=== PATIENT | female | born 1990 | race Caucasian/White ===

== ENCOUNTER 2020-08-18 08:45 | Outpatient (REF) | payer OTHER, SELFPAY ==
--- NOTE | 2020-08-18 08:58 | ECG_ITS ---
Test Reason : UNSPEC CHEST PAIN Blood Pressure : / mmHG Vent. Rate : 068 BPM Atrial Rate : 068 BPM P-R Int : 136 ms QRS Dur : 082 ms QT Int : 392 ms P-R-T Axes : 052 045 003 degrees QTc Int : 416 ms Normal sinus rhythm Nonspecific ST abnormality Abnormal ECG When compared with ECG of 30-APR-2020 14:53, ST-T changes slightly more prominent Referred By: Naye Sexton Electronically Signed By:GABRIEL MCDOWELL
--- NOTE | 2020-08-18 09:17 | XR_ITS ---
EXAMINATION: XR SHOULDER, LEFT CLINICAL INFORMATION: Pain left shoulder COMPARISON: None TECHNIQUE: AP external rotation, Grashey, scapular Y, and axillary views of the left shoulder. FINDINGS: The bones and soft tissues are normal. No fracture. Glenohumeral and acromioclavicular alignment is anatomic with normal joint space. No abnormal soft tissue calcifications. XR/XR shoulder LT min 2V IMPRESSION: Unremarkable left shoulder exam.
[2020-08-18 10:12] LABS: Troponin-I High Sensitivity < 3.5 ng/L (<3.5-17.0)
[2020-08-18 10:22] LABS: Alanine Aminotransferase 18 U/L (0-31); Albumin Level 4.3 g/dL (3.5-5.0); Alkaline Phosphatase 82 U/L (39-117); Anion Gap 14 (12-20); Aspartate Amino Transferase 12 U/L (5-31); Bilirubin Total 0.5 mg/dL (0.0-1.0); Blood Urea Nitrogen 11 mg/dL (9-16); Calcium 8.8 mg/dL (8.4-10.2); Carbon Dioxide 20 mmol/L (22-29); Chloride 108 mmol/L (96-108); Estimated Glomerular Filt Rate > 60; Glucose Fasting 113 mg/dL (60-99); Potassium 3.8 mmol/l (3.3-5.1); Sodium 138 mmol/L (135-145); Total Protein 7.2 g/dL (6.5-8.0)
== END 2020-08-18 08:46 | disposition home or self-care (01) ==
LOC: HO.LAB 08:45
PROVIDERS: PCP Internal Medicine; Visit Provider Nurse Practitioner Family
DX: R07.9 Chest pain, unspecified (principal); M25.512 Pain in left shoulder; E27.8 Other specified disorders of adrenal gland; E55.9 Vitamin D deficiency, unspecified; L65.9 Nonscarring hair loss, unspecified; K21.9 Gastro-esophageal reflux disease without esophagitis; N20.0 Calculus of kidney; E04.9 Nontoxic goiter, unspecified
CPT/HCPCS: 73030; 80053; 84484; 93005; 99202

== ENCOUNTER 2020-08-23 08:10 | Emergency (ER) | payer OTHER, SELFPAY ==
[2020-08-23 08:16] VITALS: BP 134/69; PULSE 82; RESP 18; TEMP 36.6; O2SAT 99; BMI 36.8
--- NOTE | 2020-08-23 08:19 | XR_ITS ---
EXAMINATION: XR CHEST CLINICAL INFORMATION: Palpitations. COMPARISON: None TECHNIQUE: Frontal view of the chest was obtained. FINDINGS: No significant abnormality is noted involving the heart, lungs, mediastinum, bony thorax or soft tissues. XR/XR chest 1V IMPRESSION: Unremarkable chest examination.
--- NOTE | 2020-08-23 08:19 | ECG_ITS ---
Test Reason : CP Blood Pressure : / mmHG Vent. Rate : 071 BPM Atrial Rate : 071 BPM P-R Int : 130 ms QRS Dur : 088 ms QT Int : 412 ms P-R-T Axes : 050 048 032 degrees QTc Int : 447 ms Normal sinus rhythm with sinus arrhythmia Normal ECG When compared with ECG of 18-AUG-2020 09:03, No significant change was found Referred By: Morena Miller Electronically Signed By:GABRIEL MCDOWELL
--- NOTE | 2020-08-23 08:34 | ED_ITS ---
HPI - Chest Pain General Chief Complaint: Chest Pain Stated Complaint: HEART PALPITATOINS Time Seen by Provider: 08/23/20 08:18 Source: patient Mode of arrival: ambulatory Limitations: no limitations History of Present Illness HPI narrative: 30 years old female presented with 4 days history of palpitation that can happen with no predisposing factor, patient feels like rapid heartbeat, last for few minutes, then self resolved, patient was seen and evaluated by PCP 3 days ago for her symptoms, patient bending refer to cardiology referral via her PCP. Patient also been having chest tightness for the past 4 weeks, pain feeling like intermittent pressure in the whole entire chest, with no radiation, pain is not exertional and no factor to predispose her pain, nothing makes the pain worse, nothing makes the pain better. no recent travel, no recent prolonged immobilization, no lower extremity swelling or pain, no history of DVT, or PE, no family history of young or known heart attack or PE run in the family. Related Data Home Medications Medication Instructions Recorded Confirmed albuterol sulfate 90 mcg/actuation 2 puff PO Q4H PRN 08/15/20 08/18/20 aerosol inhaler benzoyl peroxide 10 % topical gel TOPICAL BID 08/18/20 08/18/20 clindamycin phosphate 1 % topical 1 appl TOPICAL BID 08/18/20 08/18/20 gel doxycycline hyclate 100 mg capsule 100 mg PO BID 08/18/20 08/18/20 Previous Rx's Medication Instructions Recorded ibuprofen 800 mg tablet 800 mg PO Q8H PRN 15 Days #30 tab 08/15/20 prednisone 10 mg tablet 10 mg PO BID 9 Days #18 tab 08/15/20 Allergies Allergy/AdvReac Type Severity Reaction Status Date / Time No Known Allergies Allergy Unknown Unverified 05/29/20 15:46 [No Known Allergies*] Review of Systems Review of Systems: All other systems are reviewed and are negative Constitutional: Reports as per HPI and Reports no additional constitutional complaints Eyes: Reports as per HPI and Reports no additional eye complaints Reports system reviewed and no additional complaints, except as documented Cardiovascular: Reports as per HPI and Reports no additional cardiovascular complaints Respiratory: Reports as per HPI and Reports no additional respiratory complaints Gastrointestinal: Reports as per HPI and Reports no additional gastrointestinal complaints Genitourinary: Reports no additional female genitourinary complaints Musculoskeletal: Reports no additional musculoskeletal complaints Skin/Breast: Reports system reviewed and no additional complaints, except as docu Psychiatric: Reports no additional psychiatric complaints Endocrine: Reports no additional endocrine complaints Hematologic/Lymphatic: Reports no additional hematologic/lymphatic complaints Allergic/Immunologic: Reports no additional allergic/immunologic complaints Reports system reviewed and no additional complaints, except as documented and Reports Abnormal speech present REPLACED BY [facility] Past Medical History Medical History Chest pain Elevated dehydroepiandrosterone sulfate level GERD (gastroesophageal reflux disease) Goiter History of calculus of gallbladder Nephrolithiasis Shoulder pain Vitamin D deficiency Surgical History Hx of cholecystectomy Family History Family History Mother Epilepsia Diabetes Father High blood pressure Social History Social History Alcohol intake: never Smoked in Last 30 Days: No Use of substances other than those prescribed or required for medical reasons: No Advance Directives: No Advance Directives Information Provided: No Physical Exam Vital Signs: Vital Signs: Last Vital Signs Temp 97.9 F 08/23/20 10:37 Pulse 52 08/23/20 10:37 Resp 12 08/23/20 10:37 BP 126/69 08/23/20 10:37 Pulse Ox 99 08/23/20 10:37 Body Mass Index 36.8 Vital signs have been reviewed as normal and appeared to be correct. Blood pressure in the high range.. Heart rate normal. Respiration rate normal. Te mperature normal. Oxygen saturation normal. Appearance: Alert. Oriented X3. No acute distress. Head: Normal external exam. Normocephalic. Atraumatic. No De La Cruz signs noted. No raccoon eyes noted Eyes: PERRLA. EOMI. Conjunctiva and sclera normal. Eyelids normal. ENT: EAC normal. TM's Normal. Pharynx normal. Uvula midline. Moist mucous membranes. No trismus noted. No drooling noted. No muffled voice noted. Neck: Normal inspection. Neck supple. FROM. No adenopathy. Thyroid Normal. No meningeal signs. No neck mass noted. CVS: Normal heart rate and rhythm. Heart sound normal. No murmurs noted. Pulses normal throughout. Respiratory: No respiratory distress. Painless inspiration. Breath sounds normal. No wheezes/rales/rhonchi noted. Chest nontender. No accessory muscle usage noted or decreased air movement noted. Abdomen: Soft and nontender. Bowel sounds normal in all 4 quadrants. No distention noted. No organomegaly noted. No visible injury noted. Back: No CVA tenderness. Full range of motion noted. Skin: Skin warm and dry. Normal skin color. Normal skin turgor. No rashes/lesions/lacerations noted. Extremities: No lower extremity edema. Extremities exhibit normal range of motion. Extremities nontender. Neuro: Oriented X 3. No motor deficit. No sensory deficit. Reflexes normal. MDM - Chest Pain MDM Narrative Medical decision making narrative: Assessment and plan. 30-year-old female presented with intermittent palpitation/chest pain is for few days, patient has been evaluated by PCP and await for outpatient event producer referral, patient had unremarkable EKG/chest x-ray/labs include troponin and D- dimer. Lab Data Result diagrams: 08/23/20 08:58 08/23/20 10:04 Labs: Lab Results 08/23/20 08/23/20 08/23/20 Range/Units 08:47 08:57 08:58 WBC (4.8-10.8) X10*3/uL RBC (4.20-5.50) X10*6/uL Hgb (12.0-16.0) g/dl Hct (37-47) % MCV (80-98) fL MCH (27.0-33.0) pg MCHC (31.0-35.0) g/dl RDW (11.0-16.0) % Plt Count (160-400) X10*3/uL MPV (9.4-12.3) fL Immature Gran % (Auto) (0.0-0.4) % Neut % (Auto) (45-73) % Lymph % (Auto) (20-40) % Ross % (Auto) (2-11) % Eos % (Auto) (0-4) % Baso % (Auto) (0-2) % Lymph # (Auto) (1.2-4.9) X10*3/uL Ross # (Auto) (0.1-1.2) X10*3/uL Eos # (Auto) (0.0-0.4) X10*3/uL Baso # (Auto) (0.0-0.2) X10*3/uL Abs Immat Gran (auto) (0.00-0.03) X10*3/uL Absolute Neuts (auto) (2.0-8.3) X10*3/uL Absolute Nucleated RBC (0.0-0.012) X10*3/uL Nucleated RBC % (auto) (0.0-0.2) /100WBC D-Dimer Sodium Potassium Chloride Carbon Dioxide Anion Gap BUN Creatinine Estim Creat Clear Calc Estimated GFR Random Glucose Calcium Magnesium Cancelled Troponin I High Sens < 3.5 (<3.5-17.0) ng/L Urine Color YELLOW Urine Appearance CLEAR Urine pH 6.0 (5.0-8.0) Ur Specific Stigler 1.025 (1.005-1.025) Urine Protein NEG (NEG-TRACE) MG/DL Urine Glucose (UA) NEG (NEG) MG/DL Urine Ketones NEG (NEG) MG/DL Urine Blood TRACE (NEG) Urine Nitrite NEG (NEG) Ur Leukocyte Esterase NEG (NEG) Urine RBC 0 (0) /HPF Urine WBC 0-2 (0-4) /HPF Ur Squamous Epith Cells 2+ /LPF Urine Bacteria TRACE /LPF Urine Test NEGATIVE (NEGATIVE) 08/23/20 08/23/20 08/23/20 Range/Units 08:58 08:58 08:58 WBC 12.4 H (4.8-10.8) X10*3/uL RBC 4.48 (4.20-5.50) X10*6/uL Hgb 13.6 (12.0-16.0) g/dl Hct 39.8 (37-47) % MCV 88.8 (80-98) fL MCH 30.4 (27.0-33.0) pg MCHC 34.2 (31.0-35.0) g/dl RDW 12.9 (11.0-16.0) % Plt Count 388 (160-400) X10*3/uL MPV 9.6 (9.4-12.3) fL Immature Gran % (Auto) 0.4 (0.0-0.4) % Neut % (Auto) 70.0 (45-73) % Lymph % (Auto) 24.3 (20-40) % Ross % (Auto) 4.0 (2-11) % Eos % (Auto) 0.8 (0-4) % Baso % (Auto) 0.5 (0-2) % Lymph # (Auto) 3.0 (1.2-4.9) X10*3/uL Ross # (Auto) 0.5 (0.1-1.2) X10*3/uL Eos # (Auto) 0.1 (0.0-0.4) X10*3/uL Baso # (Auto) 0.1 (0.0-0.2) X10*3/uL Abs Immat Gran (auto) 0.05 H (0.00-0.03) X10*3/uL Absolute Neuts (auto) 8.7 H (2.0-8.3) X10*3/uL Absolute Nucleated RBC 0.000 (0.0-0.012) X10*3/uL Nucleated RBC % (auto) 0.0 (0.0-0.2) /100WBC D-Dimer Cancelled Sodium Cancelled Potassium Cancelled Chloride Cancelled Carbon Dioxide Cancelled Anion Gap Cancelled BUN Cancelled Creatinine Cancelled Estim Creat Clear Calc Cancelled Estimated GFR Cancelled Random Glucose Cancelled Calcium Cancelled Magnesium Troponin I High Sens (<3.5-17.0) ng/L Urine Color Urine Appearance Urine pH (5.0-8.0) Ur Specific Stigler (1.005-1.025) Urine Protein (NEG-TRACE) MG/DL Urine Glucose (UA) (NEG) MG/DL Urine Ketones (NEG) MG/DL Urine Blood (NEG) Urine Nitrite (NEG) Ur Leukocyte Esterase (NEG) Urine RBC (0) /HPF Urine WBC (0-4) /HPF Ur Squamous Epith Cells /LPF Urine Bacteria /LPF Urine Test (NEGATIVE) 08/23/20 08/23/20 Range/Units 10:04 10:04 WBC (4.8-10.8) X10*3/uL RBC (4.20-5.50) X10*6/uL Hgb (12.0-16.0) g/dl Hct (37-47) % MCV (80-98) fL MCH (27.0-33.0) pg MCHC (31.0-35.0) g/dl RDW (11.0-16.0) % Plt Count (160-400) X10*3/uL MPV (9.4-12.3) fL Immature Gran % (Auto) (0.0-0.4) % Neut % (Auto) (45-73) % Lymph % (Auto) (20-40) % Ross % (Auto) (2-11) % Eos % (Auto) (0-4) % Baso % (Auto) (0-2) % Lymph # (Auto) (1.2-4.9) X10*3/uL Ross # (Auto) (0.1-1.2) X10*3/uL Eos # (Auto) (0.0-0.4) X10*3/uL Baso # (Auto) (0.0-0.2) X10*3/uL Abs Immat Gran (auto) (0.00-0.03) X10*3/uL Absolute Neuts (auto) (2.0-8.3) X10*3/uL Absolute Nucleated RBC (0.0-0.012) X10*3/uL Nucleated RBC % (auto) (0.0-0.2) /100WBC D-Dimer < 200 Sodium 137 Potassium 4.1 Chloride 107 Carbon Dioxide 23 Anion Gap 11 L BUN 10 Creatinine 0.64 Estim Creat Clear Calc 112.6 Estimated GFR > 60 Random Glucose 106 Calcium 8.2 L D Magnesium 2.0 Troponin I High Sens (<3.5-17.0) ng/L Urine Color Urine Appearance Urine pH (5.0-8.0) Ur Specific Stigler (1.005-1.025) Urine Protein (NEG-TRACE) MG/DL Urine Glucose (UA) (NEG) MG/DL Urine Ketones (NEG) MG/DL Urine Blood (NEG) Urine Nitrite (NEG) Ur Leukocyte Esterase (NEG) Urine RBC (0) /HPF Urine WBC (0-4) /HPF Ur Squamous Epith Cells /LPF Urine Bacteria /LPF Urine Test (NEGATIVE) Imaging Data Chest x-ray: Radiologist's impression: Unremarkable chest examination. ECG Data ECG #1: Interpretation: Normal sinus rhythm at 71 beats per minute with sinus arrhythmia, normal intervals, normal axis, no ST-T changes. Discharge Plan Discharge Clinical Impression: Palpitation, Atypical chest pain Patient Disposition: Home, Self-Care Instructions: Heart Palpitations (ED) Prescriptions: No Action albuterol sulfate 90 mcg/actuation HFA aerosol inhaler 2 puff PO Q4H PRNRF: 0 ibuprofen 800 mg tablet 800 mg PO Q8H PRN (Reason: pain) 15 Days Qty: 30 RF: 0 prednisone 10 mg tablet 10 mg PO BID 9 Days Qty: 18 RF: 0 benzoyl peroxide 10 % gel topical BID RF: 0 clindamycin phosphate 1 % gel 1 appl topical BID RF: 0 doxycycline hyclate 100 mg capsule 100 mg PO BID RF: 0 Referrals: Fermin Moy MD [Physician] - 2 days
[2020-08-23 08:55] LABS: Glucose Urine UA NEG (NEG); Leukocyte Esterase Urine NEG (NEG); Nitrite Urine NEG (NEG); Specific Gravity - Urine 1.025 (1.005-1.025); Urine Blood TRACE (NEG); Urine Ketones NEG (NEG); Urine Protein NEG (NEG-TRACE)
[2020-08-23 08:58] LABS: Appearance Urine CLEAR; Color Urine YELLOW; UPreg QC Valid YES; Urine Pregnancy NEGATIVE (NEGATIVE)
[2020-08-23 08:59] VITALS: BP 132/72; PULSE 69; RESP 14; O2SAT 99
[2020-08-23 09:07] LABS: MANUAL DIFF FLAG NO
[2020-08-23 09:13] LABS: Basophils Absolute Auto 0.1 X10*3/uL (0.0-0.2); Basophils Percent Auto 0.5 % (0-2); Eosinophils Absolute Auto 0.1 X10*3/uL (0.0-0.4); Eosinophils Percent Auto 0.8 % (0-4); Hematocrit 39.8 % (37-47); Hemoglobin 13.6 g/dl (12.0-16.0); Imm Gran Abs Auto 0.05 X10*3/uL (0.00-0.03); Imm Gran Pct Auto 0.4 % (0.0-0.4); Lymphocytes Percent Auto 24.3 % (20-40); Mean Corpuscular HGB Conc 34.2 g/dl (31.0-35.0); Mean Corpuscular Hemoglobin 30.4 pg (27.0-33.0); Mean Corpuscular Volume 88.8 fL (80-98); Mean Platelet Volume 9.6 fL (9.4-12.3); Monocytes Absolute Auto 0.5 X10*3/uL (0.1-1.2); Neutrophils Absolute Auto 8.7 X10*3/uL (2.0-8.3); Platelet Count 388 X10*3/uL (160-400); Red Blood Count 4.48 X10*6/uL (4.20-5.50); Red Cell Distribution Width 12.9 % (11.0-16.0); White Blood Count 12.4 X10*3/uL (4.8-10.8)
[2020-08-23 09:13] LABS: Bacteria Urine TRACE /LPF; RBC Urine 0 /HPF (0); Squamous Epithelial Cell Urine 2+ /LPF; WBC Urine 0-2 /HPF (0-4)
[2020-08-23 09:39] LABS: Troponin-I High Sensitivity < 3.5 ng/L (<3.5-17.0)
[2020-08-23 10:33] LABS: Anion Gap 11 (12-20); Blood Urea Nitrogen 10 mg/dL (9-16); Calcium 8.2 mg/dL (8.4-10.2); Carbon Dioxide 23 mmol/L (22-29); Chloride 107 mmol/L (96-108); Creatinine Clr Calc Pharmacy 112.6; Estimated Glomerular Filt Rate > 60; Glucose Random 106 mg/dL (60-115); Potassium 4.1 mmol/l (3.3-5.1); Sodium 137 mmol/L (135-145)
[2020-08-23 10:37] VITALS: BP 126/69; PULSE 52; RESP 12; TEMP 36.6; O2SAT 99
[2020-08-23 10:40] LABS: D Dimer < 200 NG/ML
== END 2020-08-23 11:46 | disposition home or self-care (01) ==
PROVIDERS: Emergency Provider Emergency Medicine; PCP Internal Medicine
DX: R07.89 Other chest pain (principal); R00.2 Palpitations; K21.9 Gastro-esophageal reflux disease without esophagitis; Z90.49 Acquired absence of other specified parts of digestive tract
CPT/HCPCS: 36415; 71045; 80048; 81001; 81025; 83735; 84484; 85025; 85379; 93005; 99283; 99284

== ENCOUNTER 2020-08-26 09:00 | Outpatient (RCR) | payer OTHER, SELFPAY ==
--- NOTE | 2020-08-22 09:58 | MHC.PT.EP ---
[facility] [place] [facility] [place] Office [address] Con Rosales [address] [phone] F: [phone] F: [phone] F: [phone] F: [phone] Physical Therapy Plan of Care Date of Evaluation: 08/22/20 Date of Surgery: Diagnosis: This is a 30 yo female presenting to skilled PT with a script for pain in the L shoulder Assessment: This is a 30 yo female presenting to skilled PT with a script for pain in the L shoulder. This patient comes to PT after being in the ER 3 months prior for chest pain. She had a follow up with her PCP on 08/15 with reports of shoulder pain described as sharp and rating 8-10/10 and was referred to will call order clerk (waiting on results). She has never had any shoulder/neck issues in the past. She comes into day with pain that starts at the chest, wraps into the the L shoulder/scapulae and c-spine/thoracic spine. She now describes her symptoms as achy, constant and unbearable. She also reports that she gets lateral 3 digit numbness. Functionally, she reports that she is limited in work/everything . She has tried icy hot, heating pads and muscle relieving machines. Assessment reveals pain that ranges /10. She demos decreased L shoulder and cervical ROM, decreased L shoulder and corrections cadet strength, forward head and rounded posturing, TTP throughout her c-spine, t-spine and upper traps, and is functionally limited in everything . She is a good candidate for skilled PT 2x/wk for 6wks based on PT POC, functional limitations, age and PMHx. PT to work on posture, ROM, pain management and strengthening. Frequency and Duration: The patient will be seen 2x/wk for 6wks Short Term Goals: I in HEP Improve AROM by at least 10 degs Demo postural corrections without PT cuing It Business Process Architect Goals: Improve SPADI by 10 points Demo normal ROM and strength Report pain no more than 2/10 at the worst Return to work in full Treatment Plan: Modalities to reduce pain, spasms and effusion. Manual therapy to restore motion and function. Therapeutic exercise to improve strength and flexibility. Neuromuscular re-education for posture and balance. Therapeutic activities to return to functional activities of daily living. Electronically signed by: Ignacia Oconnor PT Please sign and return to therapist. Thank you for your referral.
--- NOTE | 2020-09-09 10:02 | MHC.PT.DC ---
[facility] [place] Office [place] Office [place] Office [address] Con Rosales [address] [phone] F: [phone] F: [phone] F: [phone] F: [phone] Physical Therapy Discharge Report Diagnosis: This is a 30 yo female presenting to skilled PT with a script for pain in the L shoulder Date of Surgery: Date of Evaluation: 08/22/20 Date of Discharge: 09/09/20 Treatments to Date: 2 Cancellations to Date: 0 No Shows to Date: 3 Discharge Status: Visit Non-compliance Discharge Summary: Noted R upper trap tenderness/nodule with palpation. Performed light stretching at the last tx session. Symptoms were centralized and improved s/p session. Trialed TET with ed on care, skin intact to light touch as well. However patient proceeded to no show to the next 3 visits, DC due to visit noncompliance at this time. Patient was educated on this. Electronically signed by: Ignacia Oconnor PT Please sign and return to therapist. Thank you for your referral.
== END 2020-09-09 10:02 | disposition home or self-care (01) ==
LOC: HO.PTCHIC 09:00
PROVIDERS: PCP Internal Medicine; Visit Provider Nurse Practitioner Family
DX: M25.512 Pain in left shoulder (principal)
CPT/HCPCS: 97110; 97140; 97161

== ENCOUNTER → 2020-09-22 09:13 | Outpatient (BNVA) | payer OTHER, SELFPAY | PROVIDERS: PCP Internal Medicine; Visit Provider Physician Assistant | DX: Z76.89 Persons encountering health services in other specified circumstances (principal) ==

== ENCOUNTER → 2020-10-08 08:36 | Outpatient (BNVA) | payer OTHER, SELFPAY | PROVIDERS: PCP Internal Medicine; Visit Provider Internal Medicine | DX: Z76.89 Persons encountering health services in other specified circumstances (principal) ==

== ENCOUNTER 2020-10-10 09:09 | Outpatient (REF) | payer OTHER, SELFPAY ==
[2020-10-10 10:20] LABS: Alanine Aminotransferase 20 U/L (0-31); Albumin Level 4.5 g/dL (3.5-5.0); Alkaline Phosphatase 91 U/L (39-117); Anion Gap 15 (12-20); Aspartate Amino Transferase 14 U/L (5-31); Bilirubin Total 0.6 mg/dL (0.0-1.0); Blood Urea Nitrogen 11 mg/dL (9-16); Calcium 8.7 mg/dL (8.4-10.2); Carbon Dioxide 19 mmol/L (22-29); Chloride 107 mmol/L (96-108); Cholesterol 163 mg/dL; Estimated Glomerular Filt Rate > 60; Glucose Random 168 mg/dL (60-115); HDL Cholesterol 42 mg/dL; LDL Cholesterol Calculated 91 mg/dl; Potassium 3.9 mmol/l (3.3-5.1); Sodium 137 mmol/L (135-145); Total Protein 7.3 g/dL (6.5-8.0); Triglycerides 150 mg/dL
[2020-10-10 10:32] LABS: Estimated Average Glucose 111 mg/dL; Hemoglobin A1C 134.1753 umol/L; Hemoglobin A1c % 5.5 %; Phosphorus 2.4 mg/dL (2.7-4.5)
[2020-10-10 10:42] LABS: Free T4 (Free Thyroxine) 0.96 ng/dL (0.71-1.85); HCG Quantitative < 2 mIU/mL; Thyroid Stimulating Hormone 2.14 uIU/mL (0.32-4.0); Vitamin D 25-OH Total 14.2 ng/mL (>30)
[2020-10-11 08:17] LABS: LDL Cholesterol Direct 116 mg/dL (<100)
[2020-10-11 09:02] LABS: Follicle Stimulating Hormone 3.2 mIU/mL; Lutenizing Hormone 3.1 mIU/mL; Prolactin 15.3 ng/mL
[2020-10-11 09:27] LABS: DHEA Sulfate 347 mcg/dL (23-266); Sex Hormone Binding Globulin 30 nmol/L (17-124)
[2020-10-13 17:43] LABS: Calcium (PTHI) 9.2 mg/dL (8.6-10.2); PTHI 45 pg/mL (14-64)
[2020-10-15 00:57] LABS: Estradiol Ultra Sensitive 98 pg/mL
[2020-10-15 13:07] LABS: Androstenedione 92 ng/dL
[2020-10-15 22:57] LABS: Adrenocorticotropic Hormone 8 pg/mL (6-50); Estradiol, Ultrasensitive 97 pg/mL
[2020-10-16 12:21] LABS: Testosterone, Free 4.4 pg/mL (0.1-6.4); Testosterone, Total 30 ng/dL (2-45)
== END 2020-10-10 09:10 | disposition home or self-care (01) ==
LOC: HO.LAB 09:09
PROVIDERS: PCP Internal Medicine; Visit Provider Internal Medicine
DX: E27.8 Other specified disorders of adrenal gland (principal); N20.0 Calculus of kidney
CPT/HCPCS: 36415; 80053; 80061; 82024; 82157; 82306; 82533; 82627; 82670; 83001; 83002; 83036; 83498; 83721; 83970; 84100; 84146; 84270; 84402; 84403; 84439; 84443; 84702

== ENCOUNTER 2020-11-03 07:42 | Outpatient (REF) | payer OTHER, SELFPAY ==
[2020-11-04 06:02] LABS: Cortisol 30 Minute 29.3 mcg/dL; Cortisol 60 Minute 31.7 mcg/dL; Cortisol Baseline 10.1 mcg/dL
[2020-11-05 23:56] LABS: Adrenocorticotropic Hormone 7 pg/mL (6-50)
== END 2020-11-03 07:43 | disposition home or self-care (01) ==
LOC: HO.MDS 07:42
PROVIDERS: PCP Internal Medicine; Visit Provider Internal Medicine
DX: E27.40 Unspecified adrenocortical insufficiency (principal)
CPT/HCPCS: 36415; 82024; 82533; 96374; J0834

== ENCOUNTER 2020-11-24 08:43 | Outpatient (REF) | payer OTHER, SELFPAY ==
--- NOTE | ~2020-11-24 | US_ITS ---
EXAMINATION: US THYROID CLINICAL INFORMATION: Nontoxic goiter unspecified COMPARISON: Chest radiograph 08/23/2020. TECHNIQUE: Linear transducer grayscale and color Doppler examination with attention to the region of the thyroid. FINDINGS: SIZE: Measurements of the thyroid lobes and nodules are given in sagittal, anteroposterior and transverse dimensions respectively. Right Thyroid Lobe: 4.52 x 1.77 x 1.81 cm, volume 7.56 mL. Parenchyma: The gland echotexture is homogeneous. Thyroid vascularity is increased. Left Thyroid Lobe: 3.94 x 1.46 x 1.53 cm, volume 4.62 mL. Parenchyma: The gland echotexture is homogeneous. Thyroid vascularity is increased. Isthmus: 0.54 cm in maximum AP dimension. Estimated total number of nodules greater than or equal to 1 cm: 0. NODES: No lymphadenopathy is seen in the tissue surrounding the thyroid gland. US/US thyroid IMPRESSION: No thyroid enlargement or nodularity. ACR TI-RADS RECOMMENDATION REFERENCE: Ultrasound-guided fine-needle aspiration, followup ultrasound, no further follow up. * TR1 (0 point) and TR 2 (2 points): No FNA or follow up * TR3 (3 points): FNA if more than or equal to 2.5 cm in maximum dimension, followup ultrasound in 1, 3 and 5 years if 1.5 to 2.4 cm in maximum dimension. * TR4 (4-6 points): FNA if more than or equal to 1.5 cm in maximum dimension, followup ultrasound in 1, 2, 3 and 5 years if 1 to 1.4 cm in maximum dimension. * TR5 (more than or equal to 7 points): FNA if more than or equal to 1 cm in maximum dimension, followup ultrasound every year for 5 years if 0.5 to 0.9 cm in maximum dimension. * TR3, TR4 or TR5 nodules that are below the size threshold for follow up receive no follow up.
== END 2020-11-24 08:44 | disposition home or self-care (01) ==
LOC: HO.US 08:43
PROVIDERS: Visit Provider Internal Medicine
DX: E04.9 Nontoxic goiter, unspecified (principal)
CPT/HCPCS: 76536

== ENCOUNTER 2020-11-25 09:01 | Outpatient (REF) | payer OTHER, SELFPAY ==
[2020-11-25 11:01] LABS: Albumin Level 4.2 g/dL (3.5-5.0)
[2020-11-25 11:32] LABS: Free T4 (Free Thyroxine) 0.88 ng/dL (0.71-1.85); Thyroid Stimulating Hormone 1.62 uIU/mL (0.32-4.0)
[2020-11-26 06:31] LABS: Triiodothyronine T3 Total 113 ng/dL (76-181)
== END 2020-11-25 09:02 | disposition home or self-care (01) ==
LOC: HO.LAB 09:01
PROVIDERS: PCP Internal Medicine; Visit Provider Internal Medicine
DX: E04.9 Nontoxic goiter, unspecified (principal); N20.0 Calculus of kidney
CPT/HCPCS: 36415; 82040; 84439; 84443; 84480

== ENCOUNTER → 2020-12-10 09:06 | Outpatient (BNVA) | payer OTHER, SELFPAY | PROVIDERS: PCP Internal Medicine; Visit Provider Internal Medicine | DX: R00.2 Palpitations (principal); R07.2 Precordial pain; R06.02 Shortness of breath | CPT/HCPCS: 99202 ==

== ENCOUNTER → 2021-01-12 12:35 | Outpatient (REF) | payer OTHER, SELFPAY ==
--- NOTE | 2021-01-12 12:39 | HM_ITS ---
REASON FOR TEST: Palpitations. REQUESTING PROVIDER: Dr. Fermin Moy. ENROLLMENT DATE: 01/12/2021 to 02/11/2021. Total period of 30 days. FINDINGS: Baseline rhythm was normal sinus rhythm at heart rate varying from 60 beats per minute to 127 beats per minute. There were no arrhythmias noted. There were no ectopics noted. The patient reported multiple events described as palpitations/shortness of breath with racing of fluttering or racing and fluttering with dizziness or chest pain, all of which correlated with sinus rhythm or sinus tachycardia. There were no arrhythmias noted. CONCLUSION: Cardiac event monitor is remarkable for: 1. Baseline normal sinus rhythm with no significant arrhythmias or ectopics. 1. The patient reported events correlated with sinus rhythm. Wilton Copeland MD NRS/MODL / [id number]
== END ==
LOC: HO.CARD 12:35
PROVIDERS: PCP Internal Medicine; Visit Provider Internal Medicine
DX: R00.2 Palpitations (principal)
CPT/HCPCS: 93270; 93272

== ENCOUNTER → 2021-01-15 11:36 | Outpatient (BNVA) | payer OTHER, SELFPAY | PROVIDERS: PCP Internal Medicine; Visit Provider Internal Medicine ==

== ENCOUNTER 2021-02-25 08:48 | Outpatient (REF) | payer OTHER, SELFPAY ==
--- NOTE | ~2021-02-25 | US_ITS ---
EXAMINATION: US PELVIS AND TRANSVAGINAL CLINICAL INFORMATION: Disorders of adrenal gland. COMPARISON: None TECHNIQUE: Transabdominal and transvaginal imaging of pelvis is performed. FINDINGS: The uterus is anteverted and anteflexed measuring 6.71 cm in length, 4.1 cm in AP and 5.8 cm in transverse dimension. The endometrial thickness is 0.80 cm. Small anechoic cyst seen in the cervix. Right ovary measures 3.46 x 2.22 x 2.26 cm and volume 9.09 mL. Previously, right ovary measured 2.9 x 2.2 x 1.8 cm. There is an anechoic paraovarian cyst measuring 1.1 x 1.0 x 1.1 cm. Left ovary measures 2.99 x 1.64 x 2.44 cm and volume 6.26 mL. Previously, left ovary measured 2.7 x 1.8 x 2.22 cm. US/US pelvic and transvaginal IMPRESSION: Small nabothian cyst. Unremarkable uterus. Small right paraovarian cyst.
== END 2021-02-25 08:49 | disposition home or self-care (01) ==
LOC: HO.HMGCX 08:48
PROVIDERS: PCP Internal Medicine; Visit Provider Internal Medicine
DX: E27.8 Other specified disorders of adrenal gland (principal)
CPT/HCPCS: 76830; 76856

== ENCOUNTER → 2021-03-11 08:54 | Outpatient (REF) | payer OTHER, SELFPAY ==
--- NOTE | 2021-03-11 09:04 | CA_ITS ---
Transthoracic Echocardiogram Patient (Last, First, Middle): Belinda Piedra M Gender: Female Date of : 1990 Age: 30 Procedure Date: 03/11/2021 Procedure Type: Transthoracic Echocardiogram Location: OP Height: 147.32 cm Weight: 81.65 kg BSA: 1.74 m2 Heart Rate: bpm BP: 120 / 56 mmHg Hardboard Supervisor: PERFECTO Referring MD: Fermin Moy MD Taxi Driver Supervisor: Wilton Copeland MD Symptoms: R06.02 - Shortness of breath Study Quality: Fair ECG Rhythm: Sinus Conclusions: - Essentially normal study Findings Left Ventricle Normal left ventricular size, thickness, and systolic function. The visually estimated ejection fraction is between 60-65%. Regional wall motion abnormalities can not be excluded due to suboptimal endocardial definition. Diastolic function is normal for age. Right Ventricle Normal right ventricular cavity size and systolic function. Atria Both atria are normal in size. There is no evidence of interatrial shunt. Aortic Valve Normal aortic valve structure and function. There is no aortic valve stenosis. There is no aortic valve regurgitation. Mitral Valve Normal mitral valve structure and function. There is trace mitral valve regurgitation. There is no mitral valve stenosis. Pulmonic Valve The pulmonic valve is likely normal. Tricuspid Valve Normal tricuspid valve structure. There is trace tricuspid valve regurgitation. The right ventricular systolic pressure is normal. The right ventricular systolic pressure is 21 mmHg. Normal right atrial pressure. There is no evidence of pulmonary hypertension. Great Vessels All visible segments of the aorta are normal in size. The pulmonary artery was not well visualized. Venous The inferior vena cava is normal in size and collapses greater than 50% with inspiration. Pericardium/Pleural There is no evidence of pericardial effusion. Prior Study Comparison No prior study available for comparison. Measurements 2D Linear Measurements IVSd: 1.01 0.6-0.9/0.6-1.0 cm LVIDd: 4.18 3.9-5.3/4.2-5.9 cm LVIDd Index: 2.40 2.4-3.2/2.2-3.1 cm/m2 LVIDs: 2.64 2.0-3.6 cm LVPWd: 0.98 0.7-1.1 cm Ao Root: 2.40 2.1-3.5 cm LA Diam: 3.10 2.7-3.8/3.0-4.0 cm LAIDs Index: 1.78 1.5-2.3 cm/m2 LV Mass: 168.44 67-162/88-224 g LV Mass Index: 96.81 43-95/49-115 g/m2 LVOT Diam: 1.80 3.0+(-)1.3 cm 2D Systolic Function EF 4C: 64.20 >55% EF 2C: 65.70 >55% EF BiP: 65.80 >55% Mitral Valve MV Pk E: 0.85 MV PK A: 0.51 MV Decel Time: 175.00 E/A: 1.60 E'Lateral: 13.50 E'Medial: 8.49 E/E' Med: 10.00 E/E' Lat: 6.30 PHT: 51.00 MVA PHT: 4.31 Decel Garrard: 4.84 Aortic Valve AoV Pk Raúl: 1.63 AoV Pk Grad: 11.00 LVOT LVOT Pk Raúl: 1.08 LVOT Mn Raúl: 0.72 LVOT VTI: 0.22 LVOT Pk Grad: 5.00 LVOT Mn Grad: 2.00 LVOT Diam: 1.80 LVOT Area: 2.54 Diastolic Function MV Pk E: 0.85 MV Pk A: 0.51 E/A: 1.60 E'Medial: 8.49 E/E' Med: 10.00 E' Laterial: 13.50 E/E' Lat: 6.30 Tricuspid Valve TR Pk Raúl: 2.14 TR Pk Grad: 18.00 RA Press: 3.00 RVSP: 21.00 Great Vessels Aorta Ao Root-2D: 2.40 2.0-3.7 cm Ao Asc: 2.30 2.1-3.4 cm Updated in Other Vendor System with Status of Final Wilton Copeland MD electronically signed on 03/11/2021 3:14:22 PM with status of Final
== END ==
LOC: HO.CARD 08:54
PROVIDERS: PCP Internal Medicine; Visit Provider Internal Medicine
DX: R06.02 Shortness of breath (principal)
CPT/HCPCS: 93306

== ENCOUNTER → 2021-03-19 10:10 | Outpatient (BNVA) | payer OTHER, SELFPAY | PROVIDERS: PCP Internal Medicine; Visit Provider Internal Medicine ==

== ENCOUNTER 2021-10-12 09:51 | Emergency (ER) | payer OTHER, SELFPAY ==
--- NOTE | ~2021-10-12 | XR_ITS ---
EXAMINATION: XR CHEST CLINICAL INFORMATION: Shortness of breath COMPARISON: Previous chest x-ray August 2020 TECHNIQUE: 2 views of the chest were obtained. FINDINGS: No significant abnormality is noted involving the heart, lungs, mediastinum, bony thorax or soft tissues. XR/XR chest 2V IMPRESSION: Unremarkable examination.
[2021-10-12 10:05] VITALS: BP 144/79; PULSE 67; RESP 18; TEMP 36.8; O2SAT 99; BMI 36.3
--- NOTE | 2021-10-12 10:07 | ECG_ITS ---
Test Reason : PALPITATIONS Blood Pressure : / mmHG Vent. Rate : 064 BPM Atrial Rate : 064 BPM P-R Int : 132 ms QRS Dur : 090 ms QT Int : 428 ms P-R-T Axes : 042 023 044 degrees QTc Int : 441 ms Normal sinus rhythm Normal ECG When compared with ECG of 23-AUG-2020 08:34, No significant change was found Referred By: Generic ED Physician Electronically Signed By:GABRIEL MCDOWELL
--- NOTE | 2021-10-12 11:10 | ED_ITS ---
HPI - Arrhythmia/Palpitations General Chief Complaint: Arrhythmia/Palpitations Stated Complaint: COVID+/rapid heartbeat Time Seen by Provider: 10/12/21 11:09 Source: patient Mode of arrival: ambulatory Limitations: no limitations History of Present Illness HPI narrative: Patient is a 31-year-old female past medical history of palpitations, goiter, GERD, nephrolithiasis, vitamin-D deficiency, s/p cholecystectomy. On October 07, 2021, 6 days ago she tested positive for COVID-19, she is not vaccinated and reported symptoms of cough and shortness of breath. She presents for evaluation of palpitations. She states that for the past 3 days she has been experiencing intermittent palpitations that last anywhere from 1-3 hours during the day, and she is not able to identify provoking factors or alleviating factors. There is associated shortness of breath and dizziness. The palpitations also occur at night, last night they were constant and she developed tingling down her right arm, a tightness/pain in her left jaw and a severe headache. At one point last night she reports waking up gasping for air. At night, the palpitations start once she lies flat, she does endorse improvement when sitting upright in bed. She admits to a lot of anxiety when she begins feeling the palpitations. Currently, she is endorsing palpitations and mid chest pressure in addition to epigastric pain, nausea that started this afternoon. She has a pulse oximeter at home and states that her SpO2 has never dropped below 95 in her heart rate has ranged from 55-75. She is a cigarette smoker and has not been smoking for the past week due to COVID-19, denies any personal history of cancer, clotting disorders, DVT/PE, oral contraceptive usage, or recent extended travel. Denies calf pain, tenderness, or LE swelling. Denies fevers, chills, syncope, diarrhea, constipation, dysuria, urinary frequency/hesitancy/urgency, possibility of she is s/p tubal ligation. She has had outpatient workup with the palpitations in the past including multiple EKGs and a 30 day Holter monitor by her report which have all been normal. She is not currently taking any medications for her anxiety, nor her GERD. MD complaint: heart racing and palpitations Onset (ago): day(s) Duration: intermittent Severity: moderate Context: occurred during rest and occurred during exertion Associated symptoms: chest pain, shortness of breath, nausea and anxiety Related Data Home Medications Medication Instructions Recorded Confirmed albuterol sulfate 90 mcg/actuation 2 puff PO Q4H PRN 08/15/20 03/19/21 aerosol inhaler cholecalciferol (vitamin D3) 50 50 mcg PO DAILY 01/15/21 03/19/21 mcg (2,000 unit) tablet Allergies Allergy/AdvReac Type Severity Reaction Status Date / Time No Known Allergies Allergy Unknown Verified 03/19/21 13:56 [No Known Allergies*] Review of Systems Verdana 4l Review of Systems: Verdana 4d [place] 4Bd Constitutional: [place] 4d No weight loss, fever, chills, weakness or fatigue. [place] 4Bd HEENT: [place] 4d No visual loss, blurred vision, double vision or yellow sclera. No hearing loss, sneezing, congestion, runny nose or sore throat. ArialArial 4Bd Skin: No rash or itching. Cardiovascular: + chest pressure, palpitations as noted in HPI. No pedal edema. Respiratory: Shortness of breath as noted in HPI. No cough or sputum p roduction. Gastrointestinal: + nausea, epigastric pain.. No anorexia, vomiting or diarrhea. No blood in stool. Genitourinary: No burning micturition. No urinary frequency or incontinence. Neurologic: + headache, dizziness a/w palpitations. No syncope, unilateral weakness, ataxia, numbness or tingling in the extremities. No change in bowel or bladder control. Musculoskeletal: No muscle pain, back pain, joint pain or stiffness. Hematologic: No bleeding or bruising. Lymphatics: No enlarged lymph nodes. Psychiatric: + anxiety. No depression. Endocrine: No reports of sweating. No cold or heat intolerance. No polyuria or polydipsia. [facility] Past Medical History Attestation statement: The following information was validated with the patient. 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 Blood pres sure normal.? Heart rate normal.? Respiration rate normal. Temperature normal.? Oxygen saturation normal. Appearance: Alert.?Oriented to person, place and time. No acute distress.?Normal affect. Eyes: Pupils equal, round and reactive to light.?Sclera white. ENT: Pharynx normal.?? Neck: Normal inspection.? Neck supple.?? CVS: Heart sounds normal. Normal heart rate and rhythm.? Pulses normal and equal bilaterally to upper and lower extremities.?? Respiratory: No respiratory distress.? Lung sounds clear to auscultation bilaterally?? Abdomen: Soft and non-tender to palpation in all four quadrants and epigastrum.. Normoactive bowel sounds. No pulsatile mass.?? Skin: Skin warm and dry.? Normal skin color.? Normal skin turgor.?? Extremities: No lower extremity edema.? No calf ttp? Neuro: Moves all extremities spontaneously. Sensation intact bilaterally. No focal neuro deficits. Ambulates with normal steady gait. Course Course Course Narrative: Patient is a 31-year-old female presenting to the emergency department for evaluation of palpitations. She is well appearing, afebrile, no tachycardia, no respiratory distress. History and physical exam not consistent with aortic dissection, esophageal rupture, pneumothorax, cardiac tamponade. Not consistent with bile duct stone or hepatitis. Serum labs to be obtained to exclude leukocytosis, anemia, electrolyte abnormality, abnormal renal function, abnormal hepatic/ biliary function, abnormal thyroid function. D-dimer to exclude PE. EKG and continuous nurse monitoring to exclude arrhythmia. Chest x-ray to exclude mass, infiltrate, consolidation. Maalox with lidocaine viscous and famotidine ordered. Disposition pending results. Reevaluation(s) Reevaluation #1: CBC is unremarkable, CMP unremarkable, Lipase normal, Troponin negative, TSH is normal. She is not . D-dimer less than 150, therefore unlikely to be pul monary embolism and would defer CT angio of the chest at this time. Chest x-ray without any acute disease. EKG is normal sinus rhythm, no arrhythmia or PVC/PAC. She does report some improvement in symptoms after receiving medications. Advised her palpitations may be related to anxiety, and COVID-19 infection. Given she has a history of GERD, not currently on any treatment her symptoms may also be attributed to acid reflux. Advised she may trial a course of famotidine twice daily for 2 weeks, advised to avoid triggers, remain upright after meals, avoid eating prior to bedtime only and sleeping on an incline. Given her report of waking at night gasping for air, she was advised to discuss with her PCP possible testing for sleep apnea. Patient discharged home, discussed precautions to return to the emergency department, questions answered, patient agrees with plan of care. Patient advised to follow-up with her primary care doctor within 1 week. MDM - Arrhythmia/Palpitations Medical Records Attestation: I reviewed the patient's medical records. Lab Data Attestation: I reviewed the patient's lab results. Result diagrams: 10/12/21 12:11 10/12/21 12:11 Labs: Lab Results 10/12/21 10/12/21 10/12/21 Range/Units 12:11 12:11 12:11 WBC 8.0 (4.8-10.8) X10*3/uL RBC 4.63 (4.20-5.50) X10*6/uL Hgb 13.6 (12.0-16.0) g/dl Hct 40.6 (37.0-47.0) % MCV 87.7 (80.0-98.0) fL MCH 29.4 (27.0-33.0) pg MCHC 33.5 (31.0-35.0) g/dl RDW 13.0 (11.0-16.0) % Plt Count 301 (160-400) X10*3/uL MPV 9.2 L (9.4-12.3) fL Immature Gran % (Auto) 0.4 (0.0-0.4) % Neut % (Auto) 64.1 (45-73) % Lymph % (Auto) 27.2 (20-40) % [place] % (Auto) 6.0 (2-11) % Eos % (Auto) 1.9 (0-4) % Baso % (Auto) 0.4 (0-2) % Lymph # (Auto) 2.2 (1.2-4.9) X10*3/uL [place] # (Auto) 0.5 (0.1-1.2) X10*3/uL Eos # (Auto) 0.2 (0.0-0.4) X10*3/uL Baso # (Auto) 0.0 (0.0-0.2) X10*3/uL Abs Immat Gran (auto) 0.03 (0.00-0.03) X10*3/uL Absolute Neuts (auto) 5.1 (2.0-8.3) x10*3/uL Absolute Nucleated RBC 0.000 (0.0-0.012) X10*3/uL Nucleated RBC % (auto) 0.0 (0.0-0.2) /100WBC D-Dimer High Sensitivty NG/ML Sodium 138 (135-145) mmol/L Potassium 4.3 (3.3-5.1) mmol/L Chloride 108 (96-108) mmol/L Carbon Dioxide 25 (22-29) mmol/L Anion Gap 9 L (12-20) BUN 7 L (9-16) mg/dL Creatinine 0.71 (0.5-1.4) mg/dL Estim Creat Clear Calc 104.2 Estimated GFR > 60 Random Glucose 111 (60-115) mg/dL Calcium 8.8 (8.4-10.2) mg/dL Magnesium (1.6-2.6) mg/dL Total Bilirubin 0.3 (0.0-1.0) mg/dL AST 16 (5-31) U/L ALT 21 (0-31) U/L Alkaline Phosphatase 78 (39-117) U/L Troponin I High Sens < 3.5 (<3.5-17.0) ng/L Total Protein 7.1 (6.5-8.0) g/dL Albumin 4.3 (3.5-5.0) g/dL Lipase (8-78) U/L TSH (0.32-4.0) uIU/mL Beta HCG, Quant mIU/mL 10/12/21 10/12/21 Range/Units 12:11 12:11 WBC (4.8-10.8) X10*3/uL RBC (4.20-5.50) X10*6/uL Hgb (12.0-16.0) g/dl Hct (37.0-47.0) % MCV (80.0-98.0) fL MCH (27.0-33.0) pg MCHC (31.0-35.0) g/dl RDW (11.0-16.0) % Plt Count (160-400) X10*3/uL MPV (9.4-12.3) fL Immature Gran % (Auto) (0.0-0.4) % Neut % (Auto) (45-73) % Lymph % (Auto) (20-40) % [place] % (Auto) (2-11) % Eos % (Auto) (0-4) % Baso % (Auto) (0-2) % Lymph # (Auto) (1.2-4.9) X10*3/uL [place] # (Auto) (0.1-1.2) X10*3/uL Eos # (Auto) (0.0-0.4) X10*3/uL Baso # (Auto) (0.0-0.2) X10*3/uL Abs Immat Gran (auto) (0.00-0.03) X10*3/uL Absolute Neuts (auto) (2.0-8.3) x10*3/uL Absolute Nucleated RBC (0.0-0.012) X10*3/uL Nucleated RBC % (auto) (0.0-0.2) /100WBC D-Dimer High Sensitivty < 150 NG/ML Sodium (135-145) mmol/L Potassium (3.3-5.1) mmol/L Chloride (96-108) mmol/L Carbon Dioxide (22-29) mmol/L Anion Gap (12-20) BUN (9-16) mg/dL Creatinine (0.5-1.4) mg/dL Estim Creat Clear Calc Estimated GFR Random Glucose (60-115) mg/dL Calcium (8.4-10.2) mg/dL Magnesium 2.1 (1.6-2.6) mg/dL Total Bilirubin (0.0-1.0) mg/dL AST (5-31) U/L ALT (0-31) U/L Alkaline Phosphatase (39-117) U/L Troponin I High Sens (<3.5-17.0) ng/L Total Protein (6.5-8.0) g/dL Albumin (3.5-5.0) g/dL Lipase 13 (8-78) U/L TSH 1.39 (0.32-4.0) uIU/mL Beta HCG, Quant < 2 mIU/mL Imaging Data Chest x-ray: Attestation: I personally reviewed and interpreted this imaging study as follows: Radiologist's impression: IMPRESSION: Unremarkable examination. ECG Data Attestation: I personally reviewed and interpreted this ECG as follows: ECG interpretation date: 10/12/21 ECG interpretation time: 12:01 Prior ECG tracings: available for review Interpretation: Rate: 64 Rhythm:? Normal sinus rhythm [place]:? Normal Normal P waves.? Normal DERRICK.?? Normal QRS complex.?? ST T wave :??No ST elevation or T-wave inversion qTC: 441 prior studies:?Aug 2020 The study has been interpreted contemporaneously by me. Discharge Plan Discharge Clinical Impression: Heart palpitations, COVID-19, GERD (gastroesophageal reflux disease) Patient Disposition: Home, Self-Care Instructions: Heart Palpitations (ED), Gastroesophageal Reflux Disease (ED), C OVID-19 (Coronavirus Disease 2019) (ED) Additional Instructions: As we discussed, you can try a course of Pepcid twice daily for 2 weeks, you may discuss with your primary care provider management of anxiety, and testing for sleep apnea. Please contact your primary care provider to schedule a follow-up visit within 1 week. You may return to the emergency department with any new or worsening symptoms or concerns. Prescriptions: No Action albuterol sulfate 90 mcg/actuation HFA aerosol inhaler 2 puff PO Q4H PRN0RF cholecalciferol (vitamin D3) 50 mcg (2,000 unit) tablet 50 mcg PO DAILY 0RF Interventions: ED Discharge Assessment Last Done: 10/12/21 13:31 Discharge Date/Time: 10/12/21 13:31
[2021-10-12 12:20] LABS: MANUAL DIFF FLAG NO
[2021-10-12 12:24] LABS: Basophils Percent Auto 0.4 % (0-2); Eosinophils Absolute Auto 0.2 X10*3/uL (0.0-0.4); Eosinophils Percent Auto 1.9 % (0-4); Hematocrit 40.6 % (37.0-47.0); Hemoglobin 13.6 g/dl (12.0-16.0); Imm Gran Abs Auto 0.03 X10*3/uL (0.00-0.03); Imm Gran Pct Auto 0.4 % (0.0-0.4); Lymphocytes Absolute Auto 2.2 X10*3/uL (1.2-4.9); Lymphocytes Percent Auto 27.2 % (20-40); Mean Corpuscular HGB Conc 33.5 g/dl (31.0-35.0); Mean Corpuscular Hemoglobin 29.4 pg (27.0-33.0); Mean Corpuscular Volume 87.7 fL (80.0-98.0); Mean Platelet Volume 9.2 fL (9.4-12.3); Monocytes Absolute Auto 0.5 X10*3/uL (0.1-1.2); Neutrophils Absolute Auto 5.1 x10*3/uL (2.0-8.3); Neutrophils Percent Auto 64.1 % (45-73); Platelet Count 301 X10*3/uL (160-400); Red Blood Count 4.63 X10*6/uL (4.20-5.50)
[2021-10-12 12:28] LABS: D Dimer High Sensitivity < 150 NG/ML
[2021-10-12 12:37] LABS: Lipase 13 U/L (8-78); Magnesium 2.1 mg/dL (1.6-2.6)
[2021-10-12 12:41] LABS: Troponin-I High Sensitivity < 3.5 ng/L (<3.5-17.0)
[2021-10-12 12:47] LABS: Alanine Aminotransferase 21 U/L (0-31); Albumin Level 4.3 g/dL (3.5-5.0); Alkaline Phosphatase 78 U/L (39-117); Anion Gap 9 (12-20); Aspartate Amino Transferase 16 U/L (5-31); Bilirubin Total 0.3 mg/dL (0.0-1.0); Blood Urea Nitrogen 7 mg/dL (9-16); Calcium 8.8 mg/dL (8.4-10.2); Carbon Dioxide 25 mmol/L (22-29); Chloride 108 mmol/L (96-108); Creatinine Clr Calc Pharmacy 104.2; Estimated Glomerular Filt Rate > 60; Glucose Random 111 mg/dL (60-115); Potassium 4.3 mmol/L (3.3-5.1); Sodium 138 mmol/L (135-145); Total Protein 7.1 g/dL (6.5-8.0)
[2021-10-12 12:48] VITALS: BP 134/75; PULSE 63; RESP 19; O2SAT 97
[2021-10-12] MEDS: Famotidine 20 MG TABLET PO (12:49)
[2021-10-12] MEDS: Magnesium Hydrox/Alum Hydrox 30 ML ORAL.SUSP PO (12:49)
[2021-10-12] MEDS: Lidocaine HCl Viscous 2 % 15 ML SOLUTION MUCOUS MEM (12:49)
[2021-10-12 12:58] LABS: HCG Quantitative < 2 mIU/mL; TSH reflex Free T4 1.39 uIU/mL (0.32-4.0)
== END 2021-10-12 13:31 | disposition home or self-care (01) ==
PROVIDERS: Nurse Practitioner Family; Emergency Provider Emergency Medicine; PCP Internal Medicine
DX: U07.1 COVID-19 (principal); R00.2 Palpitations; K21.9 Gastro-esophageal reflux disease without esophagitis; R06.02 Shortness of breath
CPT/HCPCS: 36415; 71046; 80053; 83690; 83735; 84443; 84484; 84702; 85025; 85379; 93005; 99284

== ENCOUNTER 2022-02-17 14:13 | Outpatient (REF) | payer OTHER, SELFPAY ==
[2022-02-17 17:52] LABS: CT PCR NOT DETECTED (Not Detect.); NG PCR NOT DETECTED (Not Detect.)
[2022-02-18 12:30] LABS: BV Int Neg Control Negative (Negative); BV Int Pos Control Positive (Positive)
[2022-02-25 12:47] LABS: HPV mRNA E6/E7 rflx Not Detected (Not Detected)
== END 2022-02-17 14:14 | disposition home or self-care (01) ==
LOC: HO.LAB 14:13
PROVIDERS: Visit Provider Advanced Practice Midwife
DX: Z01.419 Encounter for gynecological examination (general) (routine) without abnormal findings (principal); Z11.51 Encounter for screening for human papillomavirus (HPV); N92.0 Excessive and frequent menstruation with regular cycle; Z20.2 Contact with and (suspected) exposure to infections with a predominantly sexual mode of transmission
CPT/HCPCS: 87480; 87491; 87510; 87591; 87624; 87660; 88142

== ENCOUNTER → 2022-05-11 13:25 | Outpatient (BNVA) | payer SELFPAY | PROVIDERS: PCP Internal Medicine; Visit Provider Internal Medicine | DX: Z02.79 Encounter for issue of other medical certificate (principal) ==

== ENCOUNTER → 2022-08-03 10:16 | Outpatient (BNVA) | payer OTHER, SELFPAY | PROVIDERS: PCP Internal Medicine; Referring Provider Internal Medicine; Visit Provider Physician Assistant | DX: B82.9 Intestinal parasitism, unspecified (principal); R11.0 Nausea | CPT/HCPCS: 99202; 99212 ==

== ENCOUNTER 2022-11-08 14:14 | Outpatient (REF) | payer OTHER, SELFPAY ==
[2022-11-08 14:30] LABS: Appearance Urine Clear; Color Urine Dark Yellow; Glucose Urine UA Negative (Negative); Leukocyte Esterase Urine Negative (Negative); Nitrite Urine Negative (Negative); PH 7.5 (5.0-9.0); Urine Blood Negative (Negative); Urine Ketones Negative (Negative); Urine Protein Negative (Neg-Trace)
== END 2022-11-08 14:15 | disposition home or self-care (01) ==
LOC: HO.LNP 14:14
PROVIDERS: Visit Provider Nurse Practitioner Family
DX: N39.0 Urinary tract infection, site not specified (principal)
CPT/HCPCS: 81003

== ENCOUNTER 2022-11-11 10:19 | Emergency (ER) | payer MEDICAID, SELFPAY ==
--- NOTE | ~2022-11-11 | XR_ITS ---
EXAMINATION: XR ANKLE, LEFT CLINICAL INFORMATION: Left ankle pain status post fall. COMPARISON: None TECHNIQUE: AP, lateral, and mortise views of the left ankle. An indicator arrow points to the lateral malleolus. FINDINGS: The ankle joint and mortise are intact. There is no acute fracture or dislocation. The tarsal bones are normally aligned. Very small plantar calcaneal spur. Mild to moderate soft tissue swelling. XR/XR ankle LT min 3V IMPRESSION: 1. Mild to moderate soft tissue swelling without acute underlying osseous abnormality. 2. Very small degenerative plantar calcaneal spur.
[2022-11-11 10:30] VITALS: BMI 39.0
--- NOTE | 2022-11-11 10:35 | ED_ITS ---
HPI - General Adult General Chief complaint: Extremity Injury, Lower <Mark Anthony Davis - Last Filed: 11/11/22 10:36> Stated complaint: L ankle injury <Mark Anthony Davis - Last Filed: 11/11/22 10:36> Time Seen by Provider: 11/11/22 11:36 <Mark Anthony Davis - Last Filed: 11/11/22 10:36> Source: patient <MEAGHAN Dumont - Last Filed: 11/11/22 11:51> Mode of arrival: wheelchair <MEAGHAN Dumont - Last Filed: 11/11/22 11:51> Limitations: no limitations <MEAGHAN Dumont - Last Filed: 11/11/22 11:51> History of Present Illness HPI narrative: 32 yo female presents to the ER for evaluation of left ankle pain and swelling after she twisted her ankle while walking down to [place] outside earlier this morning. Patient states she felt a crack and has been unable to bear weight on the left foot since then. She reports pain to the outside of the ankle with swelling. No knee or hip injury. <MEAGHAN Dumont - Last Filed: 11/11/22 11:51> MD complaint: Left ankle pain and swelling <MEAGHAN Dumont - Last Filed: 11/11/22 11:51> Onset (ago): hour(s) <MEAGHAN Dumont - Last Filed: 11/11/22 11:51> Location: left and lower extremity <MEAGHAN Dumont - Last Filed: 11/11/22 11:51> Radiation: non-radiation <MEAGHAN Dumont - Last Filed: 11/11/22 11:51> Severity: moderate <MEAGHAN Dumont - Last Filed: 11/11/22 11:51> Severity scale (1-10): 6 <MEAGHAN Dumont - Last Filed: 11/11/22 11:51> Quality: aching <MEAGHAN Dumont - Last Filed: 11/11/22 11:51> Pain Consistency: constant <MEAGHAN Dumont Last Filed: 11/11/22 11:51> Relieving factors: immobilization and rest <MEAGHAN Dumont - Last Filed: 11/11/22 11:51> Exacerbating factors: movement and other (Ambulation) <MEAGHAN Dumont - Last Filed: 11/11/22 11:51> Associated symptoms: denies other symptoms <MEAGHAN Dumont - Last Filed: 11/11/22 11:51> Treatments prior to arrival: none <MEAGHAN Dumont - Last Filed: 11/11/22 11:51> Related Data Home medications: Previous Rx's Medication Instructions Recorded metformin 500 mg tablet 500 mg PO DAILY 90 days #90 tabs 04/06/22 cefuroxime axetil 500 mg tablet 500 mg PO Q12H 7 days #14 tabs 11/08/22 ondansetron 4 mg disintegrating 4 mg PO Q6-8H PRN nausea and 11/08/22 tablet vomiting #20 tabs ibuprofen 600 mg tablet 600 mg PO Q8H PRN pain #20 tabs 11/11/22 <Mark Anthony Davis - Last Filed: 11/11/22 10:36> Allergies/adverse reactions: Allergies Allergy/AdvReac Type Severity Reaction Status Date / Time No Known Allergies Allergy Unknown Verified 08/03/22 10:35 [No Known Allergies*] <Mark Anthony Davis - Last Filed: 11/11/22 10:36> Review of Systems Review of Systems: Yes all other systems are reviewed and are negative <MEAGHAN Dumont - Last Filed: 11/11/22 11:51> [facility] Past Medical History Medical History: Medical History Chest pain Elevated dehydroepiandrosterone sulfate level GERD (gastroesophageal reflux disease) Goiter History of calculus of gallbladder Nephrolithiasis Shoulder pain Vitamin D deficiency <Mark Anthony Davis - Last Filed: 11/11/22 10:36> Surgical History: Surgical History Hx of cholecystectomy Hx of tubal ligation <Mark Anthony Davis - Last Filed: 11/11/22 10:36> Family History Family History: Family History Mother Epilepsia Diabetes Father High blood pressure Maternal Grandmother Ovarian cancer <Mark Anthony Davis - Last Filed: 11/11/22 10:36> Social History Social History: Social History Household Members: Children Housing: Apartment Alcohol intake: never Patient Tobacco Use Status: Current everyday Tobacco user Cigarettes Per Day: 5 e-Cigarette/Vaping Use: Never Used Second Hand Smoke Exposure: No Advance Directives: No service: No Current occupational status: employed 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 Oriented X3. No acute distress. HEENT: normal inspection CVS: Normal heart rate and rhythm. Pulses normal. Respiratory: No respiratory distress. Skin: Skin warm and dry. Normal skin color. Normal skin turgor. No rashes. Extremities: left ankle with swelling of the lateral malleolus, tender to touch. no skin changes. pain with dorsiflexion and lateral movements. NV intact distally. Neuro: Oriented X 3. No motor deficit. No sensory deficit. gait not tested due to pain <MEAGHAN Dumont - Last Filed: 11/11/22 11:51> Course Course Course Narrative: RME- 32-year-old female presents for evaluation of left lateral ankle pain after a trip and fall earlier today. Denies any other injury. She has tenderness over the left lateral malleolus. X-ray left ankle ordered. <Mark Anthony Davis - Last Filed: 11/11/22 10:36> Reevaluation(s) Reevaluation #1: X-ray negative for acute fracture. Examined clinical presentation consis tent with ankle sprain. We discussed diagnosis and management. Will place an William wrap and provide crutches. Symptomatic management discussed. Stable for discharge home <MEAGHAN Dumont - Last Filed: 11/11/22 11:51> Medical Decision Making Differential Diagnosis Differential Diagnoses: The differential diagnosis associated with the presentation includes <MEAGHAN Dumont - Last Filed: 11/11/22 11:51> Ankle sprain, ankle strain, ankle fracture, ankle contusion, foot contusion <MEAGHAN Dumont - Last Filed: 11/11/22 11:51> Independent Interpretation I performed an independent interpretation of an: Plain X-Ray <MEAGHAN Dumont - Last Filed: 11/11/22 11:51> Interpretation: X-ray reviewed, no visible fracture dislocation <MEAGHAN Dumont - Last Filed: 11/11/22 11:51> Radiology Impression Discussion of test interpretation with radiology: I have reviewed the radiologist's reading. <MEAGHAN Dumont - Last Filed: 11/11/22 11:51> Radiologist Impression: FINDINGS: The ankle joint and mortise are intact. There is no acute fracture or dislocation. The tarsal bones are normally aligned. Very small plantar calcaneal spur. Mild to moderate soft tissue swelling.? XR/XR ankle LT min 3V IMPRESSION: 1.? Mild to moderate soft tissue swelling without acute underlying osseous abnormality. 2.? Very small degenerative plantar calcaneal spur. <MEAGHAN Dumont - Last Filed: 11/11/22 11:51> External Record Review External record reviewed: Office record, Outpatient record and Prior outpatient labs <MEAGHAN Dumont - Last Filed: 11/11/22 11:51> Prescription Management I considered prescription management with: Pain Medication <MEAGHAN Dumont - Last Filed: 11/11/22 11:51> Chronic Conditions Patient?s care impacted by: Other (obesity) <MEAGHAN Dumont - Last Filed: 11/11/22 11:51> Critical Care Time Critical Care Time Critical Care Time: No <MEAGHAN Dumont - Last Filed: 11/11/22 11:51> Discharge Plan Discharge Clinical Impression: Ankle sprain and strain <Mark Anthony Davis - Last Filed: 11/11/22 10:36> Patient Disposition: Home, Self-Care <Mark Anthony Davis - Last Filed: 11/11/22 10:36> Instructions: Ankle Sprain (ED) <Mark Anthony Davis - Last Filed: 11/11/22 10:36> Additional Instructions: Your x-ray today was normal. Rest your ankle and elevate your foot when possible. Recommend WILLIAM wrap for support and compression. Use ice several times per day for the next 48 hours. You may bear weight as tolerated. If pain is too severe, use crutches until better. Take Motrin and/or Tylenol as needed for pain. Follow up with your doctor as needed. <Mark Anthony Davis - Last Filed: 11/11/22 10:36> Prescriptions: New ibuprofen 600 mg tablet 600 mg PO Q8H PRN (Reason: pain) Qty: 20 0RF No Action metformin 500 mg tablet 500 mg PO DAILY 90 Days Qty: 90 1RF ondansetron 4 mg tablet,disintegrating 4 mg PO Q6-8H PRN (Reason: nausea and vomiting) Qty: 20 0RF cefuroxime axetil 500 mg tablet 500 mg PO Q12H 7 Days Qty: 14 0RF <Mark Anthony Davis - Last Filed: 11/11/22 10:36> Referrals: [facility] [place], [place] [facility] [Provider Group] (ankle sprain) <Mark Anthony Davis - Last Filed: 11/11/22 10:36> Stand Alone Forms: Work/School Release <Mark Anthony Davis - Last Filed: 11/11/22 10:36>
== END 2022-11-11 12:13 | disposition home or self-care (01) ==
PROVIDERS: Emergency Provider Student in an Organized Health Care Education/Training Program
DX: S93.402A Sprain of unspecified ligament of left ankle, initial encounter (principal); W01.0XXA Fall on same level from slipping, tripping and stumbling without subsequent striking against object, initial encounter; Y93.9 Activity, unspecified; Y92.9 Unspecified place or not applicable; Y99.9 Unspecified external cause status
CPT/HCPCS: 73610; 99282; 99283

== ENCOUNTER 2023-01-30 06:46 | Emergency (ER) | payer OTHER, SELFPAY ==
[2023-01-30 06:55] VITALS: BP 124/76; PULSE 83; RESP 18; TEMP 36.5; O2SAT 98; BMI 39.5
--- NOTE | 2023-01-30 07:06 | ED_ITS ---
HPI - General Adult General Chief complaint: Dental/Oral Stated complaint: face swelling after tooth pulled Time Seen by Provider: 01/30/23 07:06 Source: patient Mode of arrival: ambulatory Limitations: no limitations History of Present Illness HPI narrative: Patient is a 32-year-old female presenting with right lower jaw pain after tooth extraction on Tuesday. She states that she had two teeth removed, one to her right lower jaw and one to her left upper jaw. She states that she was sent home with Tylenol #3 and clindamycin. She reports using the Tylenol #3 and also taking additional Tylenol without relief of pain. She has not taken any ibuprofen as she states it upsets her stomach. She states the pain is radiating to her right ear. She denies any fevers. She states that she has not smoked since her procedure on Tuesday. She reports she is concerned about dry sockets. She states that she attempted to call the dentist's office twice but no on-call was available. MD complaint: dental pain Onset (ago): day(s) Location: mouth Radiation: other (ear) Severity: severe Quality: aching Pain Consistency: constant Relieving factors: cold therapy Associated symptoms: denies other symptoms Treatments prior to arrival: other (Tylenol #3, clindamycin) Related Data Previous Rx's Medication Instructions Recorded cephalexin 500 mg capsule 500 mg PO BID #14 caps 01/11/23 oxycodone 5 mg tablet 5 mg PO Q8H PRN pain #5 tabs 01/30/23 Allergies Allergy/AdvReac Type Severity Reaction Status Date / Time ibuprofen AdvReac Mild uti Verified 01/30/23 06:55 Review of Systems Review of Systems: As per HPI Yes all other systems are reviewed and are negative Constitutional: Constitutional: Reports no additional constitutional complaints and Denies headache(s) Eyes: Eyes: Reports no additional eye complaints ENT: Reports Normal hearing present, Reports dental pain, Denies dysphagia, Denies ear discharge, Reports otalgia, Denies facial pain, Denies headache(s), Denies hearing loss, Denies hoarseness, Denies lip swelling, Denies neck pain, Denies tinnitus, Denies sore throat, Denies throat swelling and Denies tongue swelling Cardiovascular: Cardiovascular: Reports no additional cardiovascular complaints Respiratory: Respiratory: Reports no additional respiratory complaints Gastrointestinal: Gastrointestinal: Reports no additional gastrointestinal complaints and Denies dysphagia Genitourinary: Genitourinary: Reports no additional female genitourinary complaints Musculoskeletal: Musculoskeletal: Reports no additional musculoskeletal complaints and Denies neck pain Integumentary/Breasts: Skin/Breast: Reports system reviewed and no additional complaints, except as docu Neurologic: Reports system reviewed and no additional complaints, except as documented, Reports Normal hearing present and Denies headache(s) Psychiatric: Psychiatric: Reports no additional psychiatric complaints Endocrine: Endocrine: Reports no additional endocrine complaints Hematologic/Lymphatic: Hematologic/Lymphatic: Reports no additional hematologic/lymphatic complaints Allergic/Immunologic: Allergic/Immunologic: Reports no additional allergic/immunologic complaints, Denies lip swelling, Denies throat swelling and Denies tongue swelling PMFSH Past Medical History Medical History Chest pain Elevated dehydroepiandrosterone sulfate level GERD (gastroesophageal reflux disease) Goiter History of calculus of gallbladder Nephrolithiasis Shoulder pain Vitamin D deficiency Surgical History Hx of cholecystectomy Hx of tubal ligation Family History Family History Mother Epilepsia Diabetes Father High blood pressure Maternal Grandmother Ovarian cancer Social History Social History Household Members: Children Housing: Apartment Alcohol intake: never Patient Tobacco Use Status: Current everyday Tobacco user Cigarettes Per Day: 5 e-Cigarette/Vaping Use: Never Used Second Hand Smoke Exposure: No Advance Directives: No Advance Directives Information Provided: No service: No Current occupational status: employed 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 Current occupational exposures/hazards: No Sexual orientation: Straight/Heterosexual Gender identity: Female Cognitive needs: No Hearing needs: No Vision needs: No Physical Exam ED Vital Signs: Vital Signs - 24 hr 01/30/23 06:55 Temperature 97.7 F Pulse Rate 83 Respiratory Rate 18 Blood Pressure 124/76 Pulse Oximetry 98 Oxygen Delivery Method Room Air BMI result Body Mass Index 39.5 Const General: cooperative, healthy appearing and no acute distress Orientation/consciousness: oriented to person, oriented to place, oriented to time and patient oriented x3 Limitations: no limitations HENMT Other: Clot visible in area of extraction, no active bleeding, no visible abscess Head: Yes normocephalic and Yes atraumatic Ears: external ears normal, TM's normal bilaterally, EAC's normal, mastoids normal and no periauricular adenopathy General nose exam: Normal external nose present Face and sinus: Yes edema (mild edema to right jaw) Face images: 1. Mouth: Normal oral and palatal mucosa present, lip normal, tongue normal, oropharynx normal, moist mucous membranes, no audible dysphonia and no drooling Throat: Yes posterior oropharynx normal, Yes uvula midline and No uvular edema Eyes Pupils: Equal, round and reactive pupils present Neck Neck: Yes normal visual inspection, Yes full ROM, Yes no lymphadenopathy, Yes trachea midline and Yes supple Resp Effort & Inspection: normal respiratory effort and able to speak in complete sentences Auscultation: clear to auscultation bilaterally Cardio Rate: regular rate Rhythm: regular rhythm Heart sounds: S1 normal heart sound present and S2 normal heart sound present GI Palpation (GI): Soft to palpation and nontender Auscultation: normoactive bowel sounds Skin General skin exam: elasticity normal and turgor normal Neuro General: oriented to person, oriented to place, oriented to time, patient oriented x3, moves all extremities, no focal motor deficits and CN's II-XI intact bilaterally Cranial nerves: Yes Equal, round and reactive pupils present and Yes Normal hearing present Cognition (Neuro): normal cognition Extrem General: Yes full ROM, Yes no pedal edema and Yes no calf tenderness Psych Mental Status: mental status grossly normal Affect: normal affect Thought process: Normal thought process present Medical Decision Making Medical Decision Making MDM Narrative: Patient is a 32-year-old female presenting with right lower jaw pain after tooth extraction on Tuesday. On exam, patient is awake, A+Ox3, appears uncomfortable, in no acute distress, nontoxic appearing, VS WNL, clot in place over area of extraction, no bleeding or other discharge/drainage, no abscess, no lymphadenopathy, mild swelling to right jaw area, normal EAC and TM on right. She is maintaining her own secretions and protecting her airway. Unlikely dry socket, Suraj's angina, abscess/infection. Will prescribe 5 tabs of oxycodone as needed for pain to bridge patient until tomorrow when she is able to see her dentist. Instructed patient that she should not take both Tylenol #3 and additional Tylenol. Instructed her to continue taking her clindamycin as prescribed. Instructed patient to apply cold compressed to her jaw, continue to avoid smoking. Call dentist first thing tomorrow morning. Return precautions discussed at bedside. Differential Diagnosis Differential Diagnoses: The differential diagnosis associated with the presentation includes As above. Admission/Observation Consideration of admission/observation: Escalation of care including admission/observation considered External Record Review External record reviewed: Inpatient record, Office record and Outpatient record Prescription Management I considered prescription management with: Pain Medication Discharge Plan Discharge Clinical Impression: Pain, dental Patient Disposition: Home, Self-Care Instructions: Toothache (ED) Additional Instructions: You were evaluated in the emergency department today for dental pain following a tooth extraction. Your exam does not show evidence of infection or dry socket. You are being prescribed oxycodone as needed for pain. Please follow-up with your dentist 1st thing tomorrow morning. Return to the emergency department if you develop worsening pain, thick yellow drainage from your jaw, bleeding, fever 100.4? F or greater, or any other concerning symptoms. Prescriptions: New oxycodone 5 mg tablet 5 mg PO Q8H PRN (Reason: pain) Qty: 5 0RF Rx Instructions: Partial Fill upon patient request. No Action cephalexin 500 mg capsule 500 mg PO BID Qty: 14 0RF Interventions: ED Discharge Assessment Last Done: 01/30/23 07:36
== END 2023-01-30 07:36 | disposition home or self-care (01) ==
PROVIDERS: Emergency Provider Emergency Medicine Emergency Medical Services; PCP Internal Medicine
DX: K08.89 Other specified disorders of teeth and supporting structures (principal); F17.210 Nicotine dependence, cigarettes, uncomplicated; Z71.6 Tobacco abuse counseling; Z79.899 Other long term (current) drug therapy
CPT/HCPCS: 99282

== ENCOUNTER 2023-02-24 08:32 | Emergency (ER) | payer OTHER, SELFPAY ==
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
[2023-02-24 08:48] VITALS: BP 156/106; PULSE 115; RESP 19; TEMP 36.8; O2SAT 98; BMI 38.7
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
[2023-02-24 11:26] VITALS: BP 130/104; PULSE 97; RESP 18; O2SAT 99
[2023-02-24] MEDS: Acetaminophen 325 MG TABLET 650 MG PO (11:42)
== END 2023-02-24 12:18 | disposition home or self-care (01) ==
PROVIDERS: Emergency Provider Emergency Medicine; PCP Internal Medicine
DX: S00.93XA Contusion of unspecified part of head, initial encounter (principal); R51.9 Headache, unspecified; R22.1 Localized swelling, mass and lump, neck; V43.52XA Car driver injured in collision with other type car in traffic accident, initial encounter; Y93.9 Activity, unspecified; Y92.410 Unspecified street and highway as the place of occurrence of the external cause; Y99.9 Unspecified external cause status
CPT/HCPCS: 70450; 99284

== ENCOUNTER 2023-05-27 08:07 | Outpatient (AMB) | payer OTHER, SELFPAY ==
--- NOTE | 2023-05-27 08:13 | AM.OFFWIN_ITS ---
Intake Vital Signs 05/27/23 08:14 Weight 185 lb BP 130/90 H Blood Pressure Location Lt brachial Position Sitting Pulse 94 Pulse Source Pulse Oximeter Temp 98.3 F Temp Source Temporal Artery Scan Pulse Oximetry (%) 98 Oxygen Delivery Method Room Air Intake Visit Reasons: EP Cough <congestion (masked) Intake Note: PAtient here because she has been sivk for about 3 days with a cough, headache, states she believes she has a infection in her mouth since being sick. she has a bad cavity and since being sick it has been very bothersome. Patient Tobacco Use Status: Current everyday Tobacco user Allergies ibuprofen Adverse Reaction (Mild, Verified 05/27/23 08:16) uti Do you need a note to return to daycare/school/sports/work: Yes HPI HPI Comments History of Present Illness Details This is a 33-year-old female who presents to the office today for sick visit. Patient complaining of URI symptoms including cough with yellow-green sputum, sore throat, bilateral otalgia, myalgias, and headaches. She also reports some right upper dental pain. She states she had 2 negative COVID tests at home. She denies any fevers or chills. She denies any chest pain or shortness of breath. She denies any abdominal pain or nausea/vomiting/diarrhea. [facility]LY [facility] Medical History Chest pain Elevated dehydroepiandrosterone sulfate level GERD (gastroesophageal reflux disease) Goiter History of calculus of gallbladder Nephrolithiasis Shoulder pain Vitamin D deficiency Surgical History Hx of cholecystectomy Hx of tubal ligation Family History Mother Epilepsia Diabetes Father High blood pressure Maternal Grandmother Ovarian cancer Social History (Updated 03/01/23 @ 09:34 by ALKA Juarez) Household Members: Children Housing: Apartment Alcohol intake: never Patient Tobacco Use Status: Current everyday Tobacco user Tobacco use type: Cigarette Cigarettes Per Day: 7 e-Cigarette/Vaping Use: Never Used Second Hand Smoke Exposure: No service: No Current occupational status: employed 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 Current occupational exposures/hazards: No Sexual orientation: Straight/Heterosexual Gender identity: Female Cognitive needs: No Hearing needs: No Vision needs: No Review of Systems Const All systems reviewed & are unremarkable except as noted in HPI and below Reports no additional complaints Eyes Reports no additional complaints ENT Reports no additional complaints Card Reports no additional complaints Resp Reports no additional complaints GI Reports no additional complaints Reports no additional complaints Musc Reports no additional complaints Skin/Breast Reports system reviewed and no additional complaints, except as documented Neuro Reports no additional complaints Psych Reports no additional complaints Endo Reports no additional complaints Ken/Lymph Reports no additional complaints Aller/Immun Reports no additional complaints Physical Exam Vital Signs: Last Vital Signs Temp 98.3 F 05/27/23 08:14 Pulse 94 05/27/23 08:14 BP 130/90 H 05/27/23 08:14 Pulse Ox 98 05/27/23 08:14 Oxygen Delivery Method Room Air 05/27/23 08:14 Const General: cooperative, healthy appearing, no acute distress and well developed Orientation/consciousness: patient oriented x3 HEENT Head: Yes normal to inspection Ears: hearing grossly normal bilaterally, external ears normal, TM's normal bilaterally and EAC's normal General nose exam: Normal external nose present Face and sinus: Yes normal facial exam Mouth: Normal oral and palatal mucosa present Teeth and gingiva: gingiva abnormal (Edema/erythema of the right upper gingiva) Eyes General: appearance normal, both eyes and all related structures Pupils: Equal, round and reactive pupils present EOM: EOMs intact bilaterally Neck Neck: Yes full ROM, Yes no lymphadenopathy and Yes no meningeal signs Resp Effort & Inspection: normal respiratory effort and no respiratory distress Auscultation: clear to auscultation bilaterally Cardio Rate: regular rate Rhythm: regular rhythm Heart sounds: no gallops, no murmurs and no rubs Peripheral pulses: Peripheral pulses 2+ throughout GI Inspection: No distended Palpation (GI): Soft to palpation and nontender Auscultation: normal bowel sounds Skin General skin exam: no rashes or lesions noted Neuro General: patient oriented x3 and no meningeal signs Cranial nerves: Yes CN's II-XII intact bilaterally and Yes Equal, round and reactive pupils present Gait exam (Neuro): Normal gait present Motor exam (neuro): 5/5 motor strength present throughout Extrem General: Yes normal to inspection, Yes full ROM and Yes no clubbing, cyanosis or edema Psych Appearance: grossly normal Mental Status: mental status grossly normal Assessment & Plan Assessment & Plan (1) Upper respiratory infection: Code(s): J06.9 - Acute upper respiratory infection, unspecified Plan: Patient presenting with signs and symptoms most consistent with acute respiratory tract infection. Patient's vital signs are hemodynamically stable. Her physical examination is benign with the exception of mild edema/erythema of the right upper gingiva. She has no adventitious breath sounds. She is maintaining oxygen saturations on room air. Patient is safe to be discharged home. Offered patient chest x-ray, but patient declined at this time. Recommended symptomatic management including rest, increased fluids, advil/tylenol for pain/fever, and over the counter throat lozenges/decongestants. Sent PO azithromycin 500 mg today followed by 250 mg daily x4 days. COVID/flu/RSV sent. Patient advised to follow up here or go to the emergency room for worsening/persistent symptoms. Orders: Orders SARS-CoV2/FLU/RSV Today R05.9 - Cough, unspecified Medications: New azithromycin For 250 mg dose pack: take 500 mg today (day 1), then 250 mg for 4 days (days 2-5) PO 6 tabs 0RF Coding Level of Care Code Est Pt Level 3 (97020) Diagnoses Upper respiratory infection J06.9
[2023-05-27 08:14] VITALS: BP 130/90; PULSE 94; TEMP 36.8; O2SAT 98
== END 2023-05-27 09:06 | disposition home or self-care (01) ==
PROVIDERS: PCP Internal Medicine; Visit Provider Physician Assistant Medical
DX: J06.9 Acute upper respiratory infection, unspecified (principal)
CPT/HCPCS: 99213

== ENCOUNTER 2023-05-27 11:32 | Outpatient (REF) | payer OTHER, SELFPAY ==
[2023-05-27 14:43] LABS: Influenza A PCR NEGATIVE (Negative); Influenza B PCR NEGATIVE (Negative); Resp Syncy Virus RNA Qual PCR NEGATIVE (Negative); SARS COV2 PCR INHOUSE NEGATIVE (Negative)
== END 2023-05-27 11:33 | disposition home or self-care (01) ==
LOC: HO.LNP 11:32
PROVIDERS: Visit Provider Physician Assistant Medical
DX: Z20.822 Contact with and (suspected) exposure to COVID-19 (principal); R05.9 Cough, unspecified
CPT/HCPCS: 0241U

== ENCOUNTER 2023-11-18 07:50 | Outpatient (REF) | payer OTHER, SELFPAY ==
[2023-11-18 11:24] LABS: Appearance Urine Clear; Color Urine Yellow; Glucose Urine UA Negative (Negative); Leukocyte Esterase Urine Trace (Negative); Nitrite Urine Negative (Negative); Specific Gravity - Urine 1.025 (1.005-1.025); UMIC TRIGGER UACC YES; Urine Blood Trace (Negative); Urine Ketones Negative (Negative); Urine Protein Negative (Neg-Trace)
[2023-11-18 11:31] LABS: Bacteria Urine None Seen (None Seen); Hyaline Casts Urine 0-2 /LPF (0-2); WBC Urine 0-5 /HPF (0-5)
== END 2023-11-18 07:51 | disposition home or self-care (01) ==
LOC: HO.HMGCLDS 07:50
PROVIDERS: PCP Internal Medicine; Visit Provider Internal Medicine
DX: R30.0 Dysuria (principal)
CPT/HCPCS: 81001

== ENCOUNTER 2024-01-03 15:49 | Outpatient (AMB) | payer OTHER, SELFPAY ==
--- NOTE | 2024-01-03 15:50 | MHC.PC.OV ---
Intake Visit Reasons: medication Follow/uncomfortable/[id number] Computer Builder Required: No Accompanied by: Self / Same As Patient Allergies ibuprofen Adverse Reaction (Mild, Verified 01/03/24 15:52) uti metformin Adverse Reaction (Intermediate, Uncoded 01/03/24 16:16) abdominal pain, diarrhea Tobacco use date assessed: 01/03/24 Dental Screening Dental Screen Date: 01/03/24 HPI HPI Comments History of Present Illness Details This is a 33-year-old female with PCOS, migraines, mild recurrent major depression and GERD that has tele health visit by phone complaining of migraines been more frequent and more prominent. She is metformin for the PCOS but gave her abdominal discomfort was thinking to try something else. I will start her on spironolactone. For migraines I will start her on sumatriptan as needed. Depression is in remission. GERD has been stable with low acid diet. [facility] Medical History (Updated 01/03/24 @ 18:40 by Charlene Soliman MD) Goiter GERD (gastroesophageal reflux disease) Nephrolithiasis Vitamin D deficiency Elevated dehydroepiandrosterone sulfate level Chest pain Shoulder pain History of calculus of gallbladder Surgical History Hx of tubal ligation Hx of cholecystectomy Family History Mother Epilepsia Diabetes Father High blood pressure Maternal Grandmother Ovarian cancer Social History Household Members: Children Housing: Apartment Alcohol intake: never Patient Tobacco Use Status: Current everyday Tobacco user Tobacco use type: Cigarette Cigarettes Per Day: 7 e-Cigarette/Vaping Use: Never Used Second Hand Smoke Exposure: No service: No Current occupational status: employed 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 How often do you have a drink containing alcohol?: Never 3. How often do you have six or more drinks on one occasion?: Never Total Score: 0 DESHAWN-7 AMB Questionnaire DESHAWN-7 Date DESHAWN - 7 assessed: 03/01/23 Source: Developed by Drs. Javier Tam, Shannan Machado, Roc Crystal and colleagues, with an educational darvin from [employer]. Review of Systems Const All systems reviewed & are unremarkable except as noted in HPI and below Reports headache(s) ENT Reports headache(s) Card Denies chest pain at rest, Denies chest pain with activity, Denies edema, Denies irregular heart rhythm, Denies claudication, Denies dyspnea, Denies dyspnea on exertion, Denies orthopnea, Denies paroxysmal nocturnal dyspnea and Denies slow heart rate Resp Denies cough, Denies dyspnea and Denies dyspnea on exertion GI Denies abdominal pain, Denies change in bowel habits, Denies excessive flatus, Denies nausea and Denies vomiting Denies urinary incontinence, Denies urinary hesitancy and Denies urinary urgency Neuro Reports headache(s) Physical exam (Primary Care) Tobacco/Smoking Status: Tobacco use Status Tobacco use date assessed 01/03/24 01/03/24 15:52 Patient Tobacco Use Status Current everyday Tobacco 01/03/24 15:52 Tobacco use type Cigarette 01/03/24 15:52 e-Cigarette/Vaping Use Never Used 01/03/24 15:52 Thrive Assessment: Date of Thrive Assessment Date Thrive assessed 01/03/24 01/03/24 15:52 Telehealth Telehealth Telehealth Platform: Telephone Location of provider rendering services: practice address Location of patient: address on file Patient Identification confirmed using: Name, : Yes Telehealth method: voice only (iphone) Patient verbally consented to treatment: Yes Patient verbally consented to billing insurance company: Yes Patient informed of any privacy concerns related to visit: Yes Minutes spent on Phone/Video with Pt.: 15 Assessment and Plan Assessment & Plan (1) Polycystic ovary syndrome: Code(s): E28.2 - Polycystic ovarian syndrome Plan: Start spironolactone. (2) Migraine: Code(s): G43.909 - Migraine, unspecified, not intractable, without status migrainosus Plan: Start sumatriptan as needed. (3) Mild recurrent major depression: Code(s): F33.0 - Major depressive disorder, recurrent, mild Plan: In remission. (4) GERD (gastroesophageal reflux disease): Code(s): K21.9 - Gastro-esophageal reflux disease without esophagitis Plan: Continue low acid diet. Orders: Orders Lipid Panel Today E66.9 - Obesity, unspecified, E78.5 - Hyperlipidemia, unspecified, Z68.37 - Body mass index [BMI] 37.0-37.9, adult Comprehensive Bud. Panel Fast Today E66.9 - Obesity, unspecified, Z68.37 - Body mass index [BMI] 37.0-37.9, adult Testosterone, Free/Total Today E28.2 - Polycystic ovarian syndrome Progesterone Today E28.2 - Polycystic ovarian syndrome Thyroid Stimulating Hormone Today R63.5 - Abnormal weight gain Complete Blood Count Auto Diff Today E66.9 - Obesity, unspecified, Z68.37 - Body mass index [BMI] 37.0-37.9, adult Estrogen Today E28.2 - Polycystic ovarian syndrome Medications: New amoxicillin-pot clavulanate 875-125 mg 1 tab PO BID 14 tabs 0RF 7 days spironolactone 25 mg PO DAILY 90 tabs 0RF 90 days E28.2 - Polycystic ovarian syndrome sumatriptan succinate do not exceed 8 doses per 24 hrs 25 mg PO Q2-4H PRN 9 tabs 0RF migraine headache 30 days Coding Level of Care Code Tele Est Pt Level 4 (59193) Diagnoses Polycystic ovary syndrome E28.2 Migraine G43.909 Mild recurrent major depression F33.0 Gastroesophageal reflux disease, unspecified whether esophagitis present K21.9 Time Spent (min) 15
== END 2024-01-03 16:42 | disposition home or self-care (01) ==
LOC: HO.HMGH 15:50
PROVIDERS: PCP Internal Medicine; Visit Provider Internal Medicine
DX: E28.2 Polycystic ovarian syndrome (principal); G43.909 Migraine, unspecified, not intractable, without status migrainosus; F33.0 Major depressive disorder, recurrent, mild; K21.9 Gastro-esophageal reflux disease without esophagitis
CPT/HCPCS: 99214

== ENCOUNTER 2024-01-20 09:48 | Outpatient (REF) | payer OTHER, SELFPAY ==
--- NOTE | ~2024-01-20 | US_ITS ---
EXAMINATION: US RETROPERITONEAL LIMITED (RENAL ONLY) CLINICAL INFORMATION: Microscopic hematuria. COMPARISON: Abdominal ultrasound 08/24/2018 FINDINGS: RIGHT KIDNEY: 12.6 x 4.2 x 5.5 cm (SAG x AP x TRV). The kidney is normal in size, contour, and echogenicity. Renal cortical thickness is normal. Right lower pole renal stone measuring 0.5 x 0.3 x 0.2 cm. LEFT KIDNEY: 11.6 x 4.8 x 5.2 cm (SAG x AP x TRV). The kidney is normal in size, contour, and echogenicity. Renal cortical thickness is normal. No calculi or focal parenchymal lesions. No hydronephrosis. US/US renal BI IMPRESSION: Right lower pole renal stone measuring 0.5 cm.
== END 2024-01-20 09:49 | disposition home or self-care (01) ==
LOC: HO.HMGCX 09:48
PROVIDERS: PCP Internal Medicine; Visit Provider Internal Medicine
DX: R31.29 Other microscopic hematuria (principal)
CPT/HCPCS: 76775

== ENCOUNTER 2024-01-24 08:33 | Outpatient (REF) | payer OTHER, SELFPAY ==
[2024-01-24 16:59] LABS: Urine Cytology See Pathology rpt
== END 2024-01-24 08:34 | disposition home or self-care (01) ==
LOC: HO.LNP 08:33
PROVIDERS: PCP Internal Medicine; Visit Provider Nurse Practitioner Family
DX: R31.29 Other microscopic hematuria (principal); F17.200 Nicotine dependence, unspecified, uncomplicated; Z87.442 Personal history of urinary calculi
CPT/HCPCS: 81003; 88112; 99202

== ENCOUNTER 2024-01-24 08:33 | Outpatient (AMB) | payer OTHER, SELFPAY ==
--- NOTE | 2024-01-24 09:05 | MHC.OFFVIS ---
Intake Visit Reasons: microscopic hematuria and history of kidney stones Intake Note: New Patient presents for initial visit for microscopic hematuria and kidney stones Urology Medications: none Blood Thinner: none Photo Mask Processor Required: No Accompanied by: Self / Same As Patient Allergies ibuprofen Adverse Reaction (Mild, Verified 01/24/24 09:27) uti metformin Adverse Reaction (Intermediate, Uncoded 01/24/24 09:27) abdominal pain, diarrhea Medication List - Last Reconciled 01/24/24 by NICKOLAS Roach spironolactone 25 mg PO DAILY 90 days sumatriptan succinate 25 mg PO Q2-4H PRN 30 days HPI Comments Details: Belinda is a pleasant 33-year-old female patient of Dr. Estrada. She has a past medical history of PCOS, goiter, GERD, nephrolithiasis, and vitamin-D deficiency. She presents to the office today as a new patient for microscopic hematuria and nephrolithiasis. In discussion with the patient today she reports having followed up with her PCP for ongoing flank/back pain and lower urinary bladder pressure she has been experiencing. In review of patient's chart it appears a renal ultrasound was ordered and performed. These results were reviewed with the patient today. Bilateral kidneys with no lesions or hydronephrosis. Right lower pole renal stone measuring approximately 5mm. When asked she does report a previous history of nephrolithiasis however never requiring surgical intervention. In office urinalysis results reviewed with the patient today. Trace microscopic hematuria noted otherwise within normal limits. Discussed at length potential causes of microscopic hematuria. When asked she does report a longstanding history of cigarette smoking. She reports smoking approximately half a pack per day since the age of 14. She otherwise denies any known workplace chemical exposure. Discussed at length further treatment options for lower urinary tract symptoms patient is experiencing as well as nephrolithiasis. She otherwise denies nocturia, dysuria, foul smelling urine, changes to urinary stream, fever, and or chills. [facility] Medical History Goiter GERD (gastroesophageal reflux disease) Nephrolithiasis Vitamin D deficiency Elevated dehydroepiandrosterone sulfate level Chest pain Shoulder pain History of calculus of gallbladder Surgical History Hx of tubal ligation Hx of cholecystectomy Family History Mother Epilepsia Diabetes Father High blood pressure Maternal Grandmother Ovarian cancer Social History Household Members: Children Housing: Apartment Alcohol intake: never Patient Tobacco Use Status: Current everyday Tobacco user Tobacco use type: Cigarette Cigarettes Per Day: 7 e-Cigarette/Vaping Use: Never Used Second Hand Smoke Exposure: No service: No Current occupational status: employed 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 Current occupational exposures/hazards: No Sexual orientation: Straight/Heterosexual Gender identity: Female Cognitive needs: No Hearing needs: No Vision needs: No Review of Systems Const All systems reviewed & are unremarkable except as noted in HPI and below Physical Exam Const General: cooperative, healthy appearing, comfortable, no acute distress, well developed, alert and awake Nutritional Appearance: overweight Orientation/consciousness: patient oriented x3 Limitations: no limitations HEENT Head: Yes normal to inspection, Yes normocephalic and Yes atraumatic Ears: hearing grossly normal bilaterally Eyes General: appearance normal, both eyes and all related structures Neck Neck: Yes normal visual inspection and Yes trachea midline Chest Chest palpation & inspection: normal inspection of the chest Resp Effort & Inspection: normal respiratory effort and able to speak in complete sentences Cardio Rate: regular rate GI Inspection: Yes normal to inspection General: Yes no CVA tenderness Back/Spine/Pelvis Back: no CVA tenderness Skin General skin exam: no rashes or lesions noted Neuro General: patient oriented x3 Extrem General: Yes normal to inspection Psych Appearance: grossly normal and well kempt Mental Status: mental status grossly normal Speech and movement: Normal speech and movement present and Clear speech present Affect: normal affect Attitude: cooperative Thought process: Normal thought process present Thought content: Normal thought content present Insight: Fair insight present (Psych) Judgement: Fair judgement present (Psych) Results AMB Urinalysis, Automated UA Leukoctes 0 Naomi/uL Last Edit by Rodrigo Rodrigues on 01/24/24 09:23 UA Nitrite Negative Last Edit by Rodrigo Rodrigues on 01/24/24 09:23 UA Urobilinogen 0.2 mg/dL Last Edit by Rodrigo Rodrigues on 01/24/24 09:23 UA Protein 15 mg/dL Last Edit by Rodrigo Rodrigues on 01/24/24 09:23 UA pH 7.0 Last Edit by Rodrigo Rodrigues on 01/24/24 09:23 UA Blood 10 Damien/uL Last Edit by Rodrigo Rodrigues on 01/24/24 09:23 UA Specific [place] 1.015 Last Edit by Rodrigo Rodrigues on 01/24/24 09:23 UA Ketone Negative Last Edit by Rodrigo Rodrigues on 01/24/24 09:23 UA Bilirubin 0 mg/dL Last Edit by Rodrigo Rodrigues on 01/24/24 09:23 UA Glucose 0 mg/dL Last Edit by Rodrigo Rodrigues on 01/24/24 09:23 Results Reviewed Results Reviewed: Laboratory Last Values Urine pH (Auto) 7.0 01/24/24 09:22 Specific [place] (Auto) 1.015 01/24/24 09:22 Urine Protein (Auto) 15 mg/dL 01/24/24 09:22 Glucose (UA)(Auto) 0 mg/dL 01/24/24 09:22 Urine Ketones (Auto) Negative 01/24/24 09:22 Urine Blood (Auto) 10 Damien/uL 01/24/24 09:22 Urine Nitrite (Auto) Negative 01/24/24 09:22 Urine Bilirubin (Auto) 0 mg/dL 01/24/24 09:22 Urine Urobilinogen (Auto) 0.2 mg/dL 01/24/24 09:22 Leukocyte Esterase (Auto) 0 Naomi/uL 01/24/24 09:22 Date of Service: 01/20/24 EXAMINATION: US RETROPERITONEAL LIMITED (RENAL ONLY) FINDINGS: RIGHT KIDNEY: 12.6 x 4.2 x 5.5 cm (SAG x AP x TRV). The kidney is normal in size, contour, and echogenicity. Renal cortical thickness is normal. Right lower pole renal stone measuring 0.5 x 0.3 x 0.2 cm. LEFT KIDNEY: 11.6 x 4.8 x 5.2 cm (SAG x AP x TRV). The kidney is normal in size, contour, and echogenicity. Renal cortical thickness is normal. No calculi or focal parenchymal lesions. No hydronephrosis. IMPRESSION: Right lower pole renal stone measuring 0.5 cm. Assessment & Plan Assessment & Plan (1) Microscopic hematuria: Code(s): R31.29 - Other microscopic hematuria Category: Medical (2) Nicotine dependence: Code(s): F17.200 - Nicotine dependence, unspecified, uncomplicated Category: Medical (3) Nephrolithiasis: Code(s): N20.0 - Calculus of kidney Category: Medical Plan In office urinalysis results reviewed with the patient today; as noted above; will send for urine cytology. Discussed at length potential causes of nephrolithiasis as well as microscopic hematuria in the setting of nicotine dependence. Discussed, educated, and stressed the importance of drinking plenty of water daily. Start vitamin B6 as discussed and prescribed. Will obtain CT urogram for further assessment evaluation. BUN and creatinine ordered for imaging. Discussed further interventions regarding nephrolithiasis and microscopic hematuria. Discussed adding 1 oz of lemon juice to water daily. Will continue with surveillance monitoring of microscopic hematuria as well as nephrolithiasis at this time. Follow-up in 3 months with labs and imaging to be completed prior; or sooner with any issues, concerns, and or questions. Orders: Orders CT urogram Today F17.200 - Nicotine dependence, unspecified, uncomplicated, R31.29 - Other microscopic hematuria Creatinine Today R31.29 - Other microscopic hematuria AMB Urinalysis Automated Today Z13.9 - Encounter for screening, unspecified Urine Cytology Today R31.29 - Other microscopic hematuria Blood Urea Nitrogen Today R31.29 - Other microscopic hematuria Medications: New pyridoxine (vitamin B6) 100 mg PO DAILY 90 days 90 tabs 1RF Patient Instructions: The patient had an opportunity to ask questions regarding the treatment plan. All questions were answered. Physical exam, labs, and imaging were discussed and reviewed in detail. As well as risks, benefits, and discussion of treatment choices. No major barriers to understanding were identified. The patient expressed understanding and agreement with the above treatment plan. The patient was made aware they should contact our office by phone for worsening of their current condition, the appearance of new symptoms, or with any questions or concerns. Compliance is encouraged with any medications and follow up testing that is ordered. It is a privilege to be allowed the opportunity to participate in? your urological care.? Again, if you have any questions or concerns If you have any questions or concerns please do not hesitate to contact me. The office is [phone]. This note is constructed using voice recognition software. While every effort has been made to ensure accuracy pacs specialist errors may have been included. Yours sincerely, Shreya Dee, READINESS PARAPROFESSIONAL-BC Coding Level of Care Code New Pt Level 4 (35122) Diagnoses Microscopic hematuria R31.29 Nicotine dependence F17.200 Nephrolithiasis N20.0
== END 2024-01-24 09:29 | disposition home or self-care (01) ==
PROVIDERS: PCP Internal Medicine; Visit Provider Nurse Practitioner Family
DX: R31.29 Other microscopic hematuria (principal); F17.200 Nicotine dependence, unspecified, uncomplicated; N20.0 Calculus of kidney; Z13.9 Encounter for screening, unspecified
CPT/HCPCS: 99204

== ENCOUNTER 2024-02-07 14:43 | Outpatient (AMB) | payer OTHER, SELFPAY ==
--- NOTE | 2024-02-07 14:36 | MHC.PC.OV ---
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 Accompanied by: Self / Same As Patient Allergies ibuprofen Adverse Reaction (Mild, Verified 02/07/24 14:45) uti metformin Adverse Reaction (Intermediate, Uncoded 01/24/24 09:27) abdominal pain, diarrhea Tobacco use date assessed: 01/03/24 Dental Screening Dental Screen Date: 02/07/24 Did you have a dental visit in the last 12 months?: No Did you have a dental problem in the last 6 months where you did not have access to dental care?: No Was dental information given to patient?: Patient has dentist HPI HPI Comments History of Present Illness Details This is a 33-year-old female with mild major depression, anxiety, nephrolithiasis and persistent headache that has tele visit by video complaining of more constant and frequent headaches. Sumatriptan does not relieved the pain. I will refer her to Neurology. Has depression with anxiety and I will start her on escitalopram. Follow-up visit requested for this matter. On vitamin B6 for her nephrolithiasis and is follow by Urology. No chest pain or shortness of the breath [facility] Medical History (Updated 02/07/24 @ 16:51 by Charlene Soliman MD) Goiter GERD (gastroesophageal reflux disease) Nephrolithiasis Vitamin D deficiency Elevated dehydroepiandrosterone sulfate level Chest pain Shoulder pain History of calculus of gallbladder Surgical History Hx of tubal ligation Hx of cholecystectomy Family History Mother Epilepsia Diabetes Father High blood pressure Maternal Grandmother Ovarian cancer Social History Household Members: Children Housing: Apartment Alcohol intake: never Patient Tobacco Use Status: Current everyday Tobacco user Tobacco use type: Cigarette Cigarettes Per Day: 7 e-Cigarette/Vaping Use: Never Used Second Hand Smoke Exposure: No service: No Current occupational status: employed 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 1. Little interest or pleasure in doing things: not at all 2. Feeling down, depressed, or hopeless: more than half the days 3. Trouble falling or staying asleep, or sleeping too much: several days 4. Feeling tired or having little energy: nearly every day 5. Poor appetite or overeating: nearly every day 6. Feeling bad about yourself - or that you are a failure or have let yourself or your family down: several days 7. Trouble concentrating on things, such as reading the newspaper or watching television: several days 8. Moving or speaking so slowly that other people could have noticed. Or the opposite - being so fidgety or restless that you have been moving around a lot more than usual: several days 9. Thoughts that you would be better off or of hurting yourself in some way: not at all Total score: 12 Depression Screening Interpretation: Positive Depression Screening Follow-up: Existing condition, New Medication prescribed and Follow-up Visit Requested Depression Screening Done: Yes 09530 - PHQ-9 Billing: Yes Source: Developed by Drs. Javier Tam, Shannan Machado, Roc Crystal and colleagues, with an educational darvin from [employer]- [employer] Attached Parents. Thrive Questionnaire Date Thrive assessed: 02/07/24 I am a: Patient What is your living situation today?: I have a steady place to live Within the past 12 months, did the food you bought not last and you didn't have the money to get more?: Never true Within the past 12 months, did you worry whether your food would run out before you got money to buy more?: Never true Do you have trouble paying for medicines?: No Do you have trouble getting transportation to medical appointments?: No Do you have trouble paying your heating and electricity bill?: No Do you have trouble taking care of your child, family member or friend?: No Do you have trouble with day-to-day activities such as bathing, preparing meals, shopping, managing finances, etc.?: No Are you currently unemployed and looking for a job?: No Are you interested in more education?: No Please select the resources that you would like help with: None Currently or been in a relationship where the following occur: no concerns reported THRIVE Score: 0 AUDIT C Alcohol Use Questionnaire (AUDIT-C) 1. How often do you have a drink containing alcohol?: Never Total Score: 0 Score Reviewed/Action Taken: No DESHAWN-7 AMB Questionnaire DESHAWN-7 Date DESHAWN - 7 assessed: 02/07/24 Feeling nervous, anxious, or on edge: 3 = Nearly every day Not being able to stop or control worryin = Several days Worrying too much about different things: 3 = Nearly every day Trouble relaxin = Nearly every day Being so restless that it is hard to sit still: 3 = Nearly every day Becoming easily annoyed or irritable: 3 = Nearly every day Feeling afraid as if something awful might happen: 1 = Several days Total DESHAWN-7 score (0-4 normal; 5-9 mild; 10-14 moderate; 15-21 severe): 17 Source: Developed by Drs. Jvaier Tam, Shannan Machado, Roc Crystal and colleagues, with an educational darvin from [employer]- [employer] Parents. DESHAWN-7 Assessment Billing DESHAWN-7 Assessment Tool: DESHAWN-7 Assessment 36370 Review of Systems Const All systems reviewed & are unremarkable except as noted in HPI and below Neuro Denies behavioral changes, Denies confusion and Denies lack of coordination Psych Denies behavioral changes and Denies confusion Physical exam (Primary Care) Tobacco/Smoking Status: Tobacco use Status Tobacco use date assessed 01/03/24 02/07/24 14:39 Patient Tobacco Use Status Current everyday Tobacco 02/07/24 14:39 Tobacco use type Cigarette 02/07/24 14:39 e-Cigarette/Vaping Use Never Used 02/07/24 14:39 PHQ-9: PHQ-9 Score PHQ-9: Total score 12 02/07/24 16:04 Depression Screening Interpretation: Positive Depression Screening Follow-up: Existing condition, New Medication prescribed and Follow-up Visit Requested Thrive Assessment: Date of Thrive Assessment Date Thrive assessed 02/07/24 02/07/24 14:46 Currently or been in a relationship where the following occur: no concerns reported Const General: No confusion Orientation/consciousness: patient oriented x3 and No confusion Eyes General: appearance normal, both eyes and all related structures Neck Neck: Yes normal visual inspection Neuro General: patient oriented x3 and No confusion Psych Appearance: grossly normal Telehealth Telehealth Telehealth Platform: Telephone (uberlifene/ Facetime) Location of provider rendering services: practice address Location of patient: address on file Patient Identification confirmed using: Name, : Yes Telehealth method: video Patient verbally consented to treatment: Yes Patient verbally consented to billing insurance company: Yes Patient informed of any privacy concerns related to visit: Yes Minutes spent on Phone/Video with Pt.: 16 Assessment and Plan Assessment & Plan (1) Persistent headaches: Code(s): R51.9 - Headache, unspecified Plan: Referred to neurology. (2) Mild recurrent major depression: Code(s): F33.0 - Major depressive disorder, recurrent, mild Plan: Start escitalopram. (3) Nephrolithiasis: Code(s): N20.0 - Calculus of kidney Plan: Continue vitamin B6. Follow-up with Urology. (4) DESHAWN (generalized anxiety disorder): Code(s): F41.1 - Generalized anxiety disorder Plan: Start escitalopram. Orders: Referrals Neurology Referral R51.9 - Headache, unspecified Medications: New escitalopram oxalate 10 mg PO BEDTIME 90 tabs 1RF 90 days F33.0 - Major depressive disorder, recurrent, mild Coding Level of Care Code Tele Est Pt Level 4 (23835) Diagnoses Persistent headaches R51.9 Mild recurrent major depression F33.0 Nephrolithiasis N20.0 DESHAWN (generalized anxiety disorder) F41.1 Additional Codes DESHAWN-7 Assessment Billing - DESHAWN-7 Assessment Tool: DESHAWN-7 Assessment 70886 ([id number]) Time Spent (min) 16
== END 2024-02-07 15:28 | disposition home or self-care (01) ==
LOC: HO.HMGH 14:43
PROVIDERS: PCP Internal Medicine; Visit Provider Internal Medicine
DX: R51.9 Headache, unspecified (principal); F33.0 Major depressive disorder, recurrent, mild; N20.0 Calculus of kidney; F41.1 Generalized anxiety disorder
CPT/HCPCS: 96127; 99214

== ENCOUNTER 2024-02-16 07:37 | Outpatient (AMB) | payer OTHER, SELFPAY ==
[2024-02-16 07:40] VITALS: BP 128/86; BMI 40.3
--- NOTE | 2024-02-16 07:40 | MHC.PC.OV ---
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 Accompanied by: Self / Same As Patient Allergies ibuprofen Adverse Reaction (Mild, Verified 02/16/24 08:01) uti metformin Adverse Reaction (Intermediate, Uncoded 02/16/24 08:01) abdominal pain, diarrhea Medication List - Last Reconciled 02/16/24 by Charlene Soliman MD escitalopram oxalate 10 mg PO BEDTIME 90 days pyridoxine (vitamin B6) 100 mg PO DAILY 90 days spironolactone 25 mg PO DAILY 90 days sumatriptan succinate 25 mg PO Q2-4H PRN 30 days Tobacco use date assessed: 01/03/24 Dental Screening Dental Screen Date: 02/07/24 HPI HPI Comments History of Present Illness Details This is a 33-year-old female with mild major depression, anxiety, nephrolithiasis, PCOS and morbid obesity that comes here today complaining of constant depression with loss of concentration and not able to do her job. I called Behavioral Health specialist Boogie Malhotra to help her sick for counseling. She has been taking escitalopram for about a week. Follow-up visit was requested. She has nephrolithiasis in the right side and will follow with urology soon. On spironolactone for her PCOS. She is morbidly obese with a BMI of 40.3 and has tried diet and exercise with no improvement. I will start her on Wegovy. No chest pain or shortness on breath. Constantly crying in this office visit. [facility] Medical History (Updated 02/16/24 @ 08:09 by Charlene Soliman MD) Goiter GERD (gastroesophageal reflux disease) Nephrolithiasis Vitamin D deficiency Elevated dehydroepiandrosterone sulfate level Chest pain Shoulder pain History of calculus of gallbladder Surgical History Hx of tubal ligation Hx of cholecystectomy Family History Mother Epilepsia Diabetes Father High blood pressure Maternal Grandmother Ovarian cancer Social History Household Members: Children Housing: Apartment Alcohol intake: never Patient Tobacco Use Status: Current everyday Tobacco user Tobacco use type: Cigarette Cigarettes Per Day: 7 e-Cigarette/Vaping Use: Never Used Second Hand Smoke Exposure: No service: No Current occupational status: employed 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 1. Little interest or pleasure in doing things: nearly every day 2. Feeling down, depressed, or hopeless: nearly every day 3. Trouble falling or staying asleep, or sleeping too much: nearly every day 4. Feeling tired or having little energy: nearly every day 5. Poor appetite or overeating: nearly every day 6. Feeling bad about yourself - or that you are a failure or have let yourself or your family down: nearly every day 7. Trouble concentrating on things, such as reading the newspaper or watching television: nearly every day 8. Moving or speaking so slowly that other people could have noticed. Or the opposite - being so fidgety or restless that you have been moving around a lot more than usual: not at all 9. Thoughts that you would be better off or of hurting yourself in some way: not at all Total score: 21 Depression Screening Interpretation: Positive (no suicidal thoughts) Depression Screening Follow-up: Existing condition, In treatment and Follow-up Visit Requested Depression Screening Done: Yes Source: Developed by Drs. Javier Tam, Roc Urena and colleagues, with an educational darvin from [employer]. Thrive Questionnaire Date Thrive assessed: 02/07/24 Currently or been in a relationship where the following occur: no concerns reported THRIVE Score: 0 DESHAWN-7 AMB Questionnaire DESHAWN-7 Date DESHAWN - 7 assessed: 02/07/24 Source: Developed by Drs. Javier Tam, Roc Urena and colleagues, with an educational darvin from [employer]. Review of Systems Const All systems reviewed & are unremarkable except as noted in HPI and below Card Denies chest pain at rest, Denies chest pain with activity, Denies edema, Denies irregular heart rhythm, Denies claudication, Denies dyspnea, Denies dyspnea on exertion, Denies orthopnea, Denies paroxysmal nocturnal dyspnea and Denies slow heart rate Resp Denies cough, Denies dyspnea and Denies dyspnea on exertion Psych Reports abnormal sleep pattern, Reports anxiety, Reports change in appetite, Reports depression, Reports difficulty concentrating and Reports anhedonia Physical exam (Primary Care) Vital Signs: Last Vital Signs BP 128/86 02/16/24 07:40 BMI result Body Mass Index 40.3 BMI Assessment/Plan discussion: High BMI High, discussed plan: lifestyle, weight reduction, dietary and physical activity Tobacco/Smoking Status: Tobacco use Status Tobacco use date assessed 01/03/24 02/16/24 07:45 Patient Tobacco Use Status Current everyday Tobacco 02/16/24 07:45 Tobacco use type Cigarette 02/16/24 07:45 e-Cigarette/Vaping Use Never Used 02/16/24 07:45 Are you ready to quit: Yes Tobacco cessation counseling provided: Yes Items discussed: Nicotine replacement and QuitWorks Relapse Prevention: discussed the importance of a supportive environment, discussed extending NRT, discussed negative mood or depression after quitting, weight gain after smoking is common and discussed dietary, exercise and/or lifestyle changes Number of minutes spent counselin CPT code: 37780 - 4-10 Minutes PHQ-9: PHQ-9 Score PHQ-9: Total score 21 02/16/24 08:07 Depression Screening Interpretation: Positive (no suicidal thoughts) Depression Screening Follow-up: Existing condition, In treatment and Follow-up Visit Requested Thrive Assessment: Date of Thrive Assessment Date Thrive assessed 02/07/24 02/16/24 07:45 Currently or been in a relationship where the following occur: no concerns reported Resp Effort & Inspection: normal respiratory effort Auscultation: clear to auscultation bilaterally Cardio Jugular venous distension: no JVD Rate: regular rate Rhythm: regular rhythm Heart sounds: S1 normal heart sound present and S2 normal heart sound present Extrem General: Yes full ROM Psych Affect: Sad affect present Attitude: cooperative Assessment and Plan Assessment & Plan (1) Mild recurrent major depression: Code(s): F33.0 - Major depressive disorder, recurrent, mild Plan: Continue escitalopram. (2) DESHAWN (generalized anxiety disorder): Code(s): F41.1 - Generalized anxiety disorder Plan: Continue escitalopram. (3) Morbid obesity with BMI of 40.0-44.9, adult: Code(s): E66.01 - Morbid (severe) obesity due to excess calories; Z68.41 - Body mass index [BMI] 40.0-44.9, adult Plan: Start Wegovy. BMI goal is less than 30. (4) Nephrolithiasis: Code(s): N20.0 - Calculus of kidney Plan: Continue vitamin B6 for prophylaxis. Follow-up with Urology. CT scan pending. (5) Polycystic ovary syndrome: Code(s): E28.2 - Polycystic ovarian syndrome Plan: Continue spironolactone. Medications: New semaglutide (weight loss) (Wegovy) administer weeks 1 through 4 of therapy 0.25 mg (0.5 mL) subcut QWEEK 2 mL 0RF 4 weeks E66.01 - Morbid (severe) obesity due to excess calories, Z68.41 - Body mass index [BMI] 40.0-44.9, adult Coding Level of Care Code Est Pt Level 4 (15158) Complex EM visit Add On G2211 Diagnoses Mild recurrent major depression F33.0 DESHAWN (generalized anxiety disorder) F41.1 Morbid obesity with BMI of 40.0-44.9, adult E66.01; Z68.41 Nephrolithiasis N20.0 Polycystic ovary syndrome E28.2 Additional Codes Vital Signs *Quality* - CPT code: 46241 - 4-10 Minutes ([id number]) Time Spent (min) 25
== END 2024-02-16 08:30 | disposition home or self-care (01) ==
PROVIDERS: PCP Internal Medicine; Visit Provider Internal Medicine
DX: F33.0 Major depressive disorder, recurrent, mild (principal); F41.1 Generalized anxiety disorder; E66.01 Morbid (severe) obesity due to excess calories; Z68.41 Body mass index [BMI] 40.0-44.9, adult; N20.0 Calculus of kidney; E28.2 Polycystic ovarian syndrome
CPT/HCPCS: 99214; 99406; G2211

== ENCOUNTER 2024-04-12 08:48 | Outpatient (REF) | payer OTHER, SELFPAY ==
--- NOTE | ~2024-04-12 | CT_ITS ---
EXAMINATION: CT ABDOMEN AND PELVIS WITHOUT AND WITH CONTRAST CLINICAL INFORMATION: Microscopic hematuria. COMPARISON: CT abdomen and pelvis dated 07/22/2018. TECHNIQUE: Noncontrast CT of the abdomen and pelvis is performed followed by split bolus contrast-enhanced images using 85 mL Omnipaque 350 contrast. Postcontrast imaging is performed during the combined nephrogram and excretion phase. Sagittal and coronal reformatted images were obtained on the technologist's workstation for both the precontrast and postcontrast phases. This CT examination was performed using dose optimization techniques as appropriate, variously including the following: *Automated exposure control *Adjustment of mA and/or kV according to patient size (this includes techniques or standardized protocols for targeted exams where dose is matched to indication/reason for exam; i.e. extremities or head) *Use of iterative reconstruction technique DLP: 940 mGy-cm FINDINGS: LUNG BASES: There is mild bibasilar linear atelectasis. There is a 1.3 cm fluid-containing cyst at the medial left base, with Hounsfield value of -5.5 units (8:14). This is unchanged from 07/22/2018 (3:142, and it is of no acute clinical significance. LIVER, GALLBLADDER, AND BILIARY TREE: The liver is normal in size, shape, and mildly diminished in attenuation. No focal hepatic lesion or biliary ductal dilatation is present. The gallbladder is surgically absent. PANCREAS: Unremarkable. SPLEEN: Unremarkable. ADRENAL GLANDS: Unremarkable. KIDNEYS AND URETERS: The kidneys are normal in size, shape, and attenuation. At the lower pole of the right kidney (4:87), a 2 mm nonobstructing calculus is seen. No further urinary calculus is seen, and there is no obstructive uropathy. No perinephric stranding. BLADDER: Unremarkable. GASTROINTESTINAL TRACT: The small and large bowel are unremarkable. The appendix is unremarkable. ABDOMINAL WALL: There is a diastases rectus. There is a minimal fat-containing umbilical hernia. LYMPH NODES: Normal. VASCULAR: Unremarkable. PELVIC VISCERA: The uterus and adnexa are unremarkable. Bilateral tubal ligation clips are noted. OSSEUS STRUCTURES: Unremarkable. CT/CT urogram IMPRESSION: 1. A 2 mm nonobstructing right renal lower pole calculus is seen. There is no further urinary calculus, and no obstructive uropathy is seen bilaterally. There is no urinary mass noted. 2. There is hepatic steatosis. 3. There is a diastases rectus. A minimal fat-containing umbilical hernia is seen. Electronically signed by: Marco Covarrubias MD 05/08/2024 04:35 PM EDT
[2024-04-12] MEDS: iohexoL 350 MG/ML 75 ML INFUS..BTL 85 ML IV (10:16)
== END 2024-04-12 08:49 | disposition home or self-care (01) ==
LOC: HO.CT 08:48
PROVIDERS: PCP Internal Medicine; Visit Provider Nurse Practitioner Family
DX: R31.29 Other microscopic hematuria (principal); F17.200 Nicotine dependence, unspecified, uncomplicated
CPT/HCPCS: 74178; Q9967

== ENCOUNTER 2024-05-08 15:36 | Outpatient (AMB) | payer OTHER, SELFPAY ==
--- NOTE | 2024-05-08 15:36 | A.OFFVIS_ITS ---
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 Estrada. She has a past medical history of PCOS, goiter, GERD, nephrolithiasis, and vitamin-D deficiency. She is being followed up on today via video telehealth. Of note, patient was seen approximately 3 months ago as a new patient for microscopic hematuria nephrolithiasis at which time a CT urogram was ordered and performed. These results were reviewed with the patient today. Bilateral kidneys are normal in size, shape, and attenuation. At the lower pole of the right kidney a 2 mm nonobstructing calculus is seen. No further urinary calculus is seen and there is no obstructive uropathy. No perinephric stranding. The bladder is unremarkable. She discusses recently starting weight loss medication Wegovy with PCP and has noted increase in nausea and has not been able to tolerate vitamin B6. Discussed importance of hydration relation to nephrolithiasis as well as overall health and well-being. 02/02 urine cytology results reviewed with the patient today Negative for high-grade urothelial carcinoma. Previous workup has also included a renal ultrasound 02/02 noting bilateral kidneys with no lesions or hydronephrosis. Right lower pole renal stone measuring approximately 5mm. When asked she does report a previous history of nephrolithiasis however never requiring surgical intervention. Discussed at length potential causes of microscopic hematuria. When asked she does report a longstanding history of cigarette smoking. She reports smoking approximately half a pack per day since the age of 14. She otherwise denies any known workplace chemical exposure. Discussed at length potential causes of microscopic hematuria as well as further workup to include in office cystoscopy versus surveillance monitoring. Risks and benefits of these interventions were discussed. She otherwise denies nocturia, dysuria, foul smelling urine, changes to urinary stream, fever, and or chills. COUNT INCLUDES THE [facility] Medical History Goiter GERD (gastroesophageal reflux disease) Nephrolithiasis Vitamin D deficiency Elevated dehydroepiandrosterone sulfate level Chest pain Shoulder pain History of calculus of gallbladder Surgical History Hx of tubal ligation Hx of cholecystectomy Family History Mother Epilepsia Diabetes Father High blood pressure Maternal Grandmother Ovarian cancer Social History Household Members: Children Housing: Apartment Alcohol intake: never Patient Tobacco Use Status: Current everyday Tobacco user Tobacco use type: Cigarette Cigarettes Per Day: 7 e-Cigarette/Vaping Use: Never Used Second Hand Smoke Exposure: No service: No Current occupational status: employed 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 Current occupational exposures/hazards: No Sexual orientation: Straight/Heterosexual Gender identity: Female Cognitive needs: No Hearing needs: No Vision needs: No Review of Systems Const All systems reviewed & are unremarkable except as noted in HPI and below Physical Exam Const General: cooperative, healthy appearing, comfortable, no acute distress, well developed, alert and awake Orientation/consciousness: patient oriented x3 Resp Effort & Inspection: normal respiratory effort and able to speak in complete sentences Neuro General: patient oriented x3 Psych Appearance: grossly normal and well kempt Speech and movement: Clear speech present Affect: normal affect Attitude: cooperative Thought process: Normal thought process present Thought content: Normal thought content present Insight: Fair insight present (Psych) Judgement: Fair judgement present (Psych) Telehealth Telehealth Telehealth Platform: ZALORA Location of provider rendering services: practice address Location of patient: address on file Patient Identification confirmed using: Name, : Yes Telehealth method: video Patient verbally consented to treatment: Yes Patient verbally consented to billing insurance company: Yes Patient informed of any privacy concerns related to visit: Yes Minutes spent on Phone/Video with Pt.: 15 Results Reviewed Results Reviewed: Date of Service: 04/12/24 EXAMINATION: CT ABDOMEN AND PELVIS WITHOUT AND WITH CONTRAST FINDINGS: LUNG BASES: There is mild bibasilar linear atelectasis. There is a 1.3 cm fluid-containing cyst at the medial left base, with Hounsfield value of -5.5 units (8:14). This is unchanged from 07/22/2018 (3:142, and it is of no acute clinical significance. LIVER, GALLBLADDER, AND BILIARY TREE: The liver is normal in size, shape, and mildly diminished in attenuation. No focal hepatic lesion or biliary ductal dilatation is present. The gallbladder is surgically absent. PANCREAS: Unremarkable. SPLEEN: Unremarkable. ADRENAL GLANDS: Unremarkable. KIDNEYS AND URETERS: The kidneys are normal in size, shape, and attenuation. At the lower pole of the right kidney (4:87), a 2 mm nonobstructing calculus is seen. No further urinary calculus is seen, and there is no obstructive uropathy. No perinephric stranding. BLADDER: Unremarkable. GASTROINTESTINAL TRACT: The small and large bowel are unremarkable. The appendix is unremarkable. ABDOMINAL WALL: There is a diastases rectus. There is a minimal fat-containing umbilical hernia. LYMPH NODES: Normal. VASCULAR: Unremarkable. PELVIC VISCERA: The uterus and adnexa are unremarkable. Bilateral tubal ligation clips are noted. OSSEUS STRUCTURES: Unremarkable. IMPRESSION: 1. A 2 mm nonobstructing right renal lower pole calculus is seen. There is no further urinary calculus, and no obstructive uropathy is seen bilaterally. There is no urinary mass noted. 2. There is hepatic steatosis. 3. There is a diastases rectus. A minimal fat-containing umbilical hernia is seen. Assessment & Plan Assessment & Plan (1) Microscopic hematuria: Code(s): R31.29 - Other microscopic hematuria Category: Medical (2) Nicotine dependence: Code(s): F17.200 - Nicotine dependence, unspecified, uncomplicated Category: Medical (3) Nephrolithiasis: Code(s): N20.0 - Calculus of kidney Category: Medical Plan Previous urine cytology results reviewed with the patient today; as noted above. Recent CT urogram results reviewed with the patient today; as noted above. Discussed at length potential causes of nephrolithiasis as well as microscopic hematuria in the setting of nicotine dependence. Discussed, educated, and stressed the importance of drinking plenty of water daily. Stop vitamin B6. Discussed further workup of microscopic hematuria to include in office cystoscopy versus surveillance monitoring; risks and benefits of these interventions were discussed Discussed adding 1 oz of lemon juice to water daily. Will continue with surveillance monitoring of microscopic hematuria as well as nephrolithiasis at this time. Follow-up in 6 months with imaging to be completed prior; or sooner with any issues, concerns, and or questions. Orders: Orders XR KUB 6 Months N20.0 - Calculus of kidney Patient Instructions: The patient had an opportunity to ask questions regarding the treatment plan. All questions were answered. Physical exam, labs, and imaging were discussed and reviewed in detail. As well as risks, benefits, and discussion of treatment choices. No major barriers to understanding were identified. The patient expressed understanding and agreement with the above treatment plan. The patient was made aware they should contact our office by phone for worsening of their current condition, the appearance of new symptoms, or with any questions or concerns. Compliance is encouraged with any medications and follow up testing that is ordered. It is a privilege to be allowed the opportunity to participate in? your urological care.? Again, if you have any questions or concerns If you have any questions or concerns please do not hesitate to contact me. The office is [phone]. This note is constructed using voice recognition software. While every effort has been made to ensure accuracy method consultant errors may have been included. Yours sincerely, NICKOLAS Roach Coding Level of Care Code Tele Est Pt Level 3 (17733) Diagnoses Microscopic hematuria R31.29 Nicotine dependence F17.200 Nephrolithiasis N20.0
== END 2024-05-08 15:53 | disposition home or self-care (01) ==
LOC: HO.HUSH 15:36
PROVIDERS: PCP Internal Medicine; Visit Provider Nurse Practitioner Family
DX: R31.29 Other microscopic hematuria (principal); F17.200 Nicotine dependence, unspecified, uncomplicated; N20.0 Calculus of kidney
CPT/HCPCS: 99213

== ENCOUNTER → 2024-05-08 15:36 | Outpatient (BNVA) | payer OTHER, SELFPAY | PROVIDERS: PCP Internal Medicine; Visit Provider Nurse Practitioner Family ==

== ENCOUNTER 2024-05-09 16:27 | Outpatient (AMB) | payer OTHER, SELFPAY ==
--- NOTE | 2024-05-09 16:28 | A.OFFPC_ITS ---
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 Accompanied by: Self / Same As Patient Allergies ibuprofen Adverse Reaction (Mild, Verified 05/09/24 16:56) uti metformin Adverse Reaction (Intermediate, Uncoded 05/09/24 16:56) abdominal pain, diarrhea Medication List - Last Reconciled 05/09/24 by Charlene Soliman MD ondansetron 8 mg PO Q12H PRN 10 days semaglutide (weight loss) (Wegovy) 0.5 mg (0.5 mL) subcut QWEEK 4 weeks spironolactone 25 mg PO DAILY 90 days Tobacco use date assessed: 05/09/24 Dental Screening Dental Screen Date: 05/09/24 Did you have a dental visit in the last 12 months?: Yes Did you have a dental problem in the last 6 months where you did not have access to dental care?: No Was dental information given to patient?: Patient has dentist HPI HPI Comments History of Present Illness Details This is a 34-year-old female with severe major depression that has tele health visit by phone for follow-up on depression which is still present. She will need FMLA 05/18/24 to 07/13/24 with continuous leave due to loss of concentration at work. Does have counseling and I will start her on low-dose fluoxetine because escitalopram makes her too sleepy. She also complains of hair loss and I will refer her to Dermatology. She complains of left ear pain with yellowish secretions and I will give her an antibiotic. [facility] Medical History (Updated 05/09/24 @ 17:03 by Charlene Soliman MD) Mild recurrent major depression Goiter GERD (gastroesophageal reflux disease) Nephrolithiasis Vitamin D deficiency Elevated dehydroepiandrosterone sulfate level Chest pain Shoulder pain History of calculus of gallbladder Surgical History Hx of tubal ligation Hx of cholecystectomy Family History Mother Epilepsia Diabetes Father High blood pressure Maternal Grandmother Ovarian cancer Social History Household Members: Children Housing: Apartment Alcohol intake: never Patient Tobacco Use Status: Current everyday Tobacco user Tobacco use type: Cigarette Cigarettes Per Day: 7 e-Cigarette/Vaping Use: Never Used Second Hand Smoke Exposure: No service: No Current occupational status: employed 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 1. Little interest or pleasure in doing things: nearly every day 2. Feeling down, depressed, or hopeless: nearly every day 3. Trouble falling or staying asleep, or sleeping too much: nearly every day 4. Feeling tired or having little energy: nearly every day 5. Poor appetite or overeating: nearly every day 6. Feeling bad about yourself - or that you are a failure or have let yourself or your family down: nearly every day 7. Trouble concentrating on things, such as reading the newspaper or watching television: nearly every day 8. Moving or speaking so slowly that other people could have noticed. Or the opposite - being so fidgety or restless that you have been moving around a lot more than usual: not at all 9. Thoughts that you would be better off or of hurting yourself in some way: not at all Total score: 21 Depression Screening Interpretation: Positive (no suicidal thoughts) Depression Screening Follow-up: Existing condition, In treatment and Follow-up Visit Requested Depression Screening Done: Yes Source: Developed by Drs. Javier Tam, Shannan Machado, Roc Crystal and colleagues, with an educational darvin from [employer]. Thrive Questionnaire Date Thrive assessed: 05/09/24 I am a: Patient What is your living situation today?: I have a steady place to live Within the past 12 months, did the food you bought not last and you didn't have the money to get more?: Never true Within the past 12 months, did you worry whether your food would run out before you got money to buy more?: Never true Do you have trouble paying for medicines?: No Do you have trouble getting transportation to medical appointments?: No Do you have trouble paying your heating and electricity bill?: No Do you have trouble taking care of your child, family member or friend?: No Do you have trouble with day-to-day activities such as bathing, preparing meals, shopping, managing finances, etc.?: No Are you currently unemployed and looking for a job?: No Are you interested in more education?: No Please select the resources that you would like help with: None Currently or been in a relationship where the following occur: No concerns reported THRIVE Score: 0 AUDIT C Alcohol Use Questionnaire (AUDIT-C) 1. How often do you have a drink containing alcohol?: Never Total Score: 0 Score Reviewed/Action Taken: No DESHAWN-7 AMB Questionnaire DESHAWN-7 Date DESHAWN - 7 assessed: 05/09/24 Feeling nervous, anxious, or on edge: 0 = Not at all Not being able to stop or control worryin = Not at all Worrying too much about different things: 0 = Not at all Trouble relaxin = Not at all Being so restless that it is hard to sit still: 0 = Not at all Becoming easily annoyed or irritable: 0 = Not at all Feeling afraid as if something awful might happen: 0 = Not at all Total DESHAWN-7 score (0-4 normal; 5-9 mild; 10-14 moderate; 15-21 severe): 0 Source: Developed by Drs. Javier Tam, Shannan Machado, Roc Crystal and colleagues, with an educational darvin from [employer]. DESHAWN-7 Assessment Billing DESHAWN-7 Assessment Tool: DESHAWN-7 Assessment 09660 Review of Systems Const All systems reviewed & are unremarkable except as noted in HPI and below ENT Reports ear discharge and Reports otalgia Card Denies chest pain at rest, Denies chest pain with activity, Denies edema, Denies irregular heart rhythm, Denies claudication, Denies dyspnea, Denies dyspnea on exertion, Denies orthopnea, Denies paroxysmal nocturnal dyspnea and Denies slow heart rate Resp Denies cough, Denies dyspnea and Denies dyspnea on exertion Skin/Breast Denies bleeding lesions, Denies changing lesions, Reports alopecia and Denies rash Neuro Denies behavioral changes and Denies lack of coordination Psych Reports anxiety, Denies behavioral changes and Reports depression Physical exam (Primary Care) Tobacco/Smoking Status: Tobacco use Status Tobacco use date assessed 05/09/24 05/09/24 16:30 Patient Tobacco Use Status Current everyday Tobacco 05/09/24 16:30 Tobacco use type Cigarette 05/09/24 16:30 e-Cigarette/Vaping Use Never Used 05/09/24 16:30 PHQ-9: PHQ-9 Score PHQ-9: Total score 21 05/09/24 16:57 Depression Screening Interpretation: Positive (no suicidal thoughts) Depression Screening Follow-up: Existing condition, In treatment and Follow-up Visit Requested Thrive Assessment: Date of Thrive Assessment Date Thrive assessed 05/09/24 05/09/24 16:30 Currently or been in a relationship where the following occur: No concerns reported Telehealth Telehealth Telehealth Platform: Telephone Location of provider rendering services: practice address Location of patient: address on file Patient Identification confirmed using: Name, : Yes Telehealth method: voice only Patient verbally consented to treatment: Yes Patient verbally consented to billing insurance company: Yes Patient informed of any privacy concerns related to visit: Yes Minutes spent on Phone/Video with Pt.: 15 Assessment and Plan Assessment & Plan (1) Severe major depression without psychotic features: Code(s): F32.2 - Major depressive disorder, single episode, severe without psychotic features Plan: Start fluoxetine. Continue counseling. (2) Otitis media: Code(s): H66.90 - Otitis media, unspecified, unspecified ear Plan: Start amoxicillin. (3) Hair loss: Code(s): L65.9 - Nonscarring hair loss, unspecified Plan: Referred to dermatology. Orders: Orders Thyroid Stimulating Hormone Today L65.9 - Nonscarring hair loss, unspecified Referrals Dermatology Referral L65.9 - Nonscarring hair loss, unspecified Medications: New amoxicillin 500 mg PO BID 14 tabs 0RF 7 days H66.90 - Otitis media, unspecified, unspecified ear Coding Level of Care Code Tele Est Pt Level 3 (55084) Complex EM visit Add On G2211 Diagnoses Severe major depression without psychotic features F32.2 Otitis media H66.90 Hair loss L65.9 Additional Codes DESHAWN-7 Assessment Billing - DESHAWN-7 Assessment Tool: DESHAWN-7 Assessment 32122 ([id number]) Time Spent (min) 15
== END 2024-05-09 17:19 | disposition home or self-care (01) ==
LOC: HO.HMGH 16:27
PROVIDERS: PCP Internal Medicine; Visit Provider Internal Medicine
DX: F32.2 Major depressive disorder, single episode, severe without psychotic features (principal); H66.90 Otitis media, unspecified, unspecified ear; L65.9 Nonscarring hair loss, unspecified
CPT/HCPCS: 96127; 99213; G2211

== ENCOUNTER 2024-07-04 16:09 | Outpatient (AMB) | payer OTHER, SELFPAY ==
[2024-07-04 16:10] VITALS: BMI 38.0
--- NOTE | 2024-07-04 16:10 | A.OFFPC_ITS ---
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 Accompanied by: Self / Same As Patient Allergies ibuprofen Adverse Reaction (Mild, Verified 07/04/24 16:18) uti metformin Adverse Reaction (Intermediate, Uncoded 07/04/24 16:18) abdominal pain, diarrhea Medication List - Last Reconciled 07/04/24 by Charlene Soliman MD fluoxetine 10 mg PO DAILY 90 days ondansetron 8 mg PO Q12H PRN 10 days semaglutide (weight loss) (Wegovy) 0.25 mg (0.5 mL) subcut QWEEK 4 weeks spironolactone 25 mg PO DAILY 90 days Tobacco use date assessed: 05/09/24 Dental Screening Dental Screen Date: 05/09/24 HPI HPI Comments History of Present Illness Details This is a 36-year-old female with severe major depression, anxiety and morbid obesity that has tele health visit by video for follow-up on her conditions. Depression with anxiety still present and she goes to counseling once a week. Fluoxetine was just started. Still has depression with anxiety and do not think that could go back to work. No chest pain or shortness on breath. She is morbidly obese and is on wegovy which has worked well for her. COUNT INCLUDES THE [facility] Medical History (Updated 05/09/24 @ 17:03 by Charlene Soliman MD) Mild recurrent major depression Goiter GERD (gastroesophageal reflux disease) Nephrolithiasis Vitamin D deficiency Elevated dehydroepiandrosterone sulfate level Chest pain Shoulder pain History of calculus of gallbladder Surgical History Hx of tubal ligation Hx of cholecystectomy Family History Mother Epilepsia Diabetes Father High blood pressure Maternal Grandmother Ovarian cancer Social History Household Members: Children Housing: Apartment Alcohol intake: never Patient Tobacco Use Status: Current everyday Tobacco user Tobacco use type: Cigarette Cigarettes Per Day: 7 e-Cigarette/Vaping Use: Never Used Second Hand Smoke Exposure: No service: No Current occupational status: employed 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 Javier Tam, Shannan Machado, Roc Crystal and colleagues, with an educational darvin from [employer]. Review of Systems Const All systems reviewed & are unremarkable except as noted in HPI and below Eyes Reports no additional complaints, Denies change in vision and Denies other visual disturbances ENT Denies change in voice, Denies nasal discharge and Denies sinus pain Card Denies chest pain at rest, Denies chest pain with activity, Denies edema, Denies irregular heart rhythm, Denies claudication, Denies dyspnea, Denies dyspnea on exertion, Denies orthopnea, Denies paroxysmal nocturnal dyspnea and Denies slow heart rate Resp Denies cough, Denies dyspnea and Denies dyspnea on exertion GI Denies abdominal pain, Denies change in bowel habits, Denies excessive flatus, Denies nausea and Denies vomiting Denies urinary incontinence, Denies urinary hesitancy and Denies urinary urgency Musc Denies abnormal gait, Denies atrophy, Denies deformity and Denies limited range of motion Skin/Breast Denies bleeding lesions, Denies changing lesions and Denies rash Neuro Denies abnormal gait, Denies behavioral changes and Denies lack of coordination Psych Denies behavioral changes and Reports depression Physical exam (Primary Care) BMI result Body Mass Index 38.0 Tobacco/Smoking Status: Tobacco use Status Tobacco use date assessed 05/09/24 07/04/24 16:14 Patient Tobacco Use Status Current everyday Tobacco 07/04/24 16:14 Tobacco use type Cigarette 07/04/24 16:14 e-Cigarette/Vaping Use Never Used 07/04/24 16:14 Thrive Assessment: Date of Thrive Assessment Date Thrive assessed 05/09/24 07/04/24 16:14 HENMT Head: Yes normocephalic Mouth: lip normal Eyes General: appearance normal, both eyes and all related structures Telehealth Telehealth Telehealth Platform: Other (please specify) (ipad) Location of provider rendering services: practice address Location of patient: address on file Patient Identification confirmed using: Name, : Yes Telehealth method: video Patient verbally consented to treatment: Yes Patient verbally consented to billing insurance company: Yes Patient informed of any privacy concerns related to visit: Yes Minutes spent on Phone/Video with Pt.: 15 Coding Level of Care Code Tele Est Pt Level 3 (49740) Complex EM visit Add On G2211 Diagnoses Severe major depression without psychotic features F32.2 Morbid obesity with BMI of 40.0-44.9, adult E66.01; Z68.41 DESHAWN (generalized anxiety disorder) F41.1 Time Spent (min) 15 Assessment & Plan Assessment & Plan (1) Severe major depression without psychotic features: Code(s): F32.2 - Major depressive disorder, single episode, severe without psychotic features Category: Medical Plan: Continue fluoxetine. Continue counseling. (2) Morbid obesity with BMI of 40.0-44.9, adult: Code(s): E66.01 - Morbid (severe) obesity due to excess calories; Z68.41 - Body mass index [BMI] 40.0-44.9, adult Category: Medical Plan: Continue diet and exercise and Wegovy. BMI goal is less than 30. (3) DESHAWN (generalized anxiety disorder): Code(s): F41.1 - Generalized anxiety disorder Category: Medical Plan: Continue fluoxetine and counseling. Medications: New semaglutide (weight loss) (Wegovy) administer weeks 1 through 4 of therapy 0.25 mg (0.5 mL) subcut QWEEK 2 mL 0RF 4 weeks E66.01 - Morbid (severe) obesity due to excess calories, Z68.41 - Body mass index [BMI] 40.0-44.9, adult Discontinued semaglutide (weight loss) (Wegovy) administer weeks 5 through 8 of therapy Discontinued Reason: Patient Completed Course 0.5 mg (0.5 mL) subcut QWEEK 4 weeks 2 mL 0RF semaglutide (weight loss) (Wegovy) Discontinued Reason: Patient Completed Course 1 mg (0.5 mL) subcut Q7D 4 weeks 2 mL 0RF
== END 2024-07-04 16:37 | disposition home or self-care (01) ==
LOC: HO.HMCH 16:09
PROVIDERS: PCP Internal Medicine; Visit Provider Internal Medicine
DX: F32.2 Major depressive disorder, single episode, severe without psychotic features (principal); E66.01 Morbid (severe) obesity due to excess calories; Z68.41 Body mass index [BMI] 40.0-44.9, adult; F41.1 Generalized anxiety disorder

== ENCOUNTER → 2024-07-04 16:09 | Outpatient (BNVA) | payer OTHER, SELFPAY | PROVIDERS: PCP Internal Medicine; Visit Provider Internal Medicine ==

== ENCOUNTER 2024-08-03 06:57 | Emergency (ER) | payer OTHER, SELFPAY ==
[2024-08-03 07:10] VITALS: BP 144/84; PULSE 75; RESP 16; TEMP 36.7; O2SAT 99; BMI 37.6
--- NOTE | 2024-08-03 07:58 | ED.GENADULT ---
HPI - General Adult General Chief complaint: Dental/Oral Stated complaint: Tooth infection Time Seen by Provider: 08/03/24 07:58 History of Present Illness ED Provider: Karine HPI narrative: The patient is a 34-year-old female with a history of poor dentition. She says she has had a lot of bad experiences with dentists has a fear of dentists and so has not had a lot of dental care. She says that a week ago she went to an urgent care because she was having pain in multiple teeth on both sides. She says that she has a applied temporary fillings that she bought at a drug store. She says she was prescribed a course of Augmentin 1 week ago. She says she has been taking the antibiotic feels like she is getting worse. Additionally she feels she has developed diarrhea and chills feels that she is having worsening discomfort in her teeth. She thinks that she has had fevers. She says she has had voluminous loose bowels. She had 3 loose bowel movements yesterday. Related Data Previous Rx's ?Medication ?Instructions ?Recorded ondansetron 8 mg disintegrating 8 mg PO Q12H PRN nausea and 05/24/24 tablet vomiting 10 days #20 tabs semaglutide (weight loss) 0.25 0.25 mg (0.5 mL) subcut QWEEK 4 07/04/24 mg/0.5 mL subcutaneous pen weeks #2 mL injector (Wegovy) spironolactone 25 mg tablet 25 mg PO DAILY 90 days #90 tabs 07/20/24 fluoxetine 10 mg tablet 10 mg PO DAILY 90 days #90 tabs 07/31/24 azithromycin 250 mg tablet 250 mg PO DAILY 4 days #4 tabs 08/03/24 Allergies Allergy/AdvReac Type Severity Reaction Status Date / Time ibuprofen AdvReac Mild uti Verified 08/03/24 07:11 metformin AdvReac Intermediate abdominal Uncoded 07/04/24 16:18 pain, diarrhea Review of Systems Review of Systems: Yes all other systems are reviewed and are negative [facility] Past Medical History Medical History (Updated 08/03/24 @ 09:54 by Jase Milton MD) Mild recurrent major depression Goiter GERD (gastroesophageal reflux disease) Nephrolithiasis Vitamin D deficiency Elevated dehydroepiandrosterone sulfate level Chest pain Shoulder pain History of calculus of gallbladder Surgical History Hx of tubal ligation Hx of cholecystectomy Family History Family History Mother Epilepsia Diabetes Father High blood pressure Maternal Grandmother Ovarian cancer Social History Social History Household Members: Children Housing: Apartment Alcohol intake: never Patient Tobacco Use Status: Current everyday Tobacco user Tobacco use type: Cigarette Cigarettes Per Day: 7 e-Cigarette/Vaping Use: Never Used Second Hand Smoke Exposure: No Advance Directives: No Advance Directives Information Provided: Yes Do you have a plan to hurt others: No Plan service: No Current occupational status: employed 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 She does not appear obviously acutely ill. HENMT Other: Face is symmetrical. There is no trismus. The patient is missing many of her molars. Some mild injection to the gingival mucosa of the upper teeth. No focal swelling to suggest an abscess. Eyes Other: Pupils are round equal, conjunctivae are clear, extraocular movements intact. Neck Other: No discrete adenopathy. Neck is supple. Resp Effort & Inspection: normal respiratory effort Auscultation: clear to auscultation bilaterally Cardio Rate: regular rate Rhythm: regular rhythm Heart sounds: S1 normal heart sound present and S2 normal heart sound present Skin Other: Skin is normal. No erythema. Neuro Other: The patient is awake and alert with a normal mental status. Cranial nerves 2-12 are grossly intact. She moves extremities normally. She has a normal gait. Neurologically intact. Extrem Other: No peripheral edema Medications Administered Discontinued Medications Generic Name Dose Route Start Last Admin Trade Name Freq PRN Reason Stop Dose Admin Azithromycin 500 mg 08/03/24 09:53 08/03/24 10:05 Azithromycin 500 Mg Tablet PO 08/03/24 09:54 500 mg ONCE ONE Administration Medical Decision Making Medical Decision Making [facility] Narrative: The patient is a 34-year-old female with a history of a lot of dental problems and a history of not going to dentist who has had dental pains that did not improve with a course of Augmentin. She also has complaints of feeling worse since starting the Augmentin including diarrhea body aches, and chills. A C diff test was ordered but she never produced any stool sample. She has a normal white count. My suspicion for C diff would be low. Regard to her dental complaints she has a lot of diffuse dental pain and tenderness but no focal findings or evidence of an abscess. The patient is very interested in being on azithromycin because she feels this has been more effective as an antibiotic for her in the past. She was prescribed azithromycin. Lab Data 08/03/24 08:44 08/03/24 08:44 Labs: Lab Results 08/03/24 08/03/24 Range/Units 07:25 08:44 WBC 9.3 (4.8-10.8) X10*3/uL RBC 4.65 (4.20-5.50) X10*6/uL Hgb 13.8 (12.0-16.0) g/dl Hct 40.5 (37.0-47.0) % MCV 87.1 (80.0-98.0) fL MCH 29.7 (27.0-33.0) pg MCHC 34.1 (31.0-35.0) g/dl RDW 13.7 (11.0-16.0) % Plt Count 331 (160-400) X10*3/uL MPV 9.2 L (9.4-12.3) fL Immature Gran % (Auto) 0.5 H (0.0-0.4) % Neut % (Auto) 69.9 (45-73) % Lymph % (Auto) 22.7 (20-40) % Trinity % (Auto) 3.8 (2-11) % Eos % (Auto) 2.7 (0-4) % Baso % (Auto) 0.4 (0-2) % Lymph # (Auto) 2.1 (1.2-4.9) X10*3/uL Trinity # (Auto) 0.4 (0.1-1.2) X10*3/uL Eos # (Auto) 0.3 (0.0-0.4) X10*3/uL Baso # (Auto) 0.0 (0.0-0.2) X10*3/uL Abs Immat Gran (auto) 0.05 H (0.00-0.03) X10*3/uL Absolute Neuts (auto) 6.5 (2.0-8.3) x10*3/uL Absolute Nucleated RBC 0.000 (0.0-0.012) X10*3/uL Nucleated RBC % (auto) 0.0 (0.0-0.2) /100WBC Sodium 136 (135-145) mmol/L Potassium 4.1 (3.3-5.1) mmol/L Chloride 105 (96-108) mmol/L Carbon Dioxide 24 (22-29) mmol/L Anion Gap 11 L (12-20) BUN 7 L (9-16) mg/dL Creatinine 0.69 (0.5-1.4) mg/dL Estim Creat Clear Calc 101.7 Estimated GFR > 60 Random Glucose 145 H (60-115) mg/dL Calcium 8.7 (8.4-10.2) mg/dL C-Reactive Protein 0.42 (< or = 0.50) mg/dL Influenza Type A (PCR) NEGATIVE (Negative) Influenza Type B (PCR) NEGATIVE (Negative) RSV RNA Qual (PCR) NEGATIVE (Negative) SARS-CoV-2 RNA (RT-PCR) NEGATIVE (Negative) Discharge Plan Discharge Clinical Impression: Pain due to dental caries Patient Disposition: Home, Self-Care Instructions: Toothache (ED) Additional Instructions: You have been started on azithromycin, a new antibiotic. Please use ibuprofen and acetaminophen as needed for discomfort. Drink lot of fluids. The most important thing that needs to happen for you is for you to see a dentist. Please work on that today. Please also follow up with your regular medical doctor. Return to the emergency department if worse. Prescriptions: New azithromycin 250 mg tablet 250 mg PO DAILY 4 Days Qty: 4 0RF Rx Instructions: start on day 2 of therapy No Action ondansetron 8 mg tablet,disintegrating 8 mg PO Q12H PRN (Reason: nausea and vomiting) 10 Days Qty: 20 0RF spironolactone 25 mg tablet 25 mg PO DAILY 90 Days Qty: 90 0RF fluoxetine 10 mg tablet 10 mg PO DAILY 90 Days Qty: 90 0RF Wegovy 0.25 mg/0.5 mL pen injector 0.25 mg subcut QWEEK 28 Days Qty: 2 0RF Rx Instructions: administer weeks 1 through 4 of therapy Referrals: Charlene Ashford MD [Physician] - Interventions: ED Discharge Assessment Last Done: 08/03/24 10:10 Discharge Date/Time: 08/03/24 10:10 Print Language: Congolese
[2024-08-03 08:23] LABS: Influenza A PCR NEGATIVE (Negative); Influenza B PCR NEGATIVE (Negative); Resp Syncy Virus RNA Qual PCR NEGATIVE (Negative); SARS COV2 PCR INHOUSE NEGATIVE (Negative)
[2024-08-03 08:50] LABS: MANUAL DIFF FLAG NO
[2024-08-03 08:52] LABS: Basophils Percent Auto 0.4 % (0-2); Eosinophils Absolute Auto 0.3 X10*3/uL (0.0-0.4); Eosinophils Percent Auto 2.7 % (0-4); Hematocrit 40.5 % (37.0-47.0); Hemoglobin 13.8 g/dl (12.0-16.0); Imm Gran Abs Auto 0.05 X10*3/uL (0.00-0.03); Imm Gran Pct Auto 0.5 % (0.0-0.4); Lymphocytes Absolute Auto 2.1 X10*3/uL (1.2-4.9); Lymphocytes Percent Auto 22.7 % (20-40); Mean Corpuscular HGB Conc 34.1 g/dl (31.0-35.0); Mean Corpuscular Hemoglobin 29.7 pg (27.0-33.0); Mean Corpuscular Volume 87.1 fL (80.0-98.0); Mean Platelet Volume 9.2 fL (9.4-12.3); Monocytes Absolute Auto 0.4 X10*3/uL (0.1-1.2); Monocytes Percent Auto 3.8 % (2-11); Neutrophils Absolute Auto 6.5 x10*3/uL (2.0-8.3); Neutrophils Percent Auto 69.9 % (45-73); Platelet Count 331 X10*3/uL (160-400); Red Blood Count 4.65 X10*6/uL (4.20-5.50); Red Cell Distribution Width 13.7 % (11.0-16.0); White Blood Count 9.3 X10*3/uL (4.8-10.8)
[2024-08-03 09:08] LABS: Anion Gap 11 (12-20); Blood Urea Nitrogen 7 mg/dL (9-16); C Reactive Protein 0.42 mg/dL (< or = 0.50); Calcium 8.7 mg/dL (8.4-10.2); Carbon Dioxide 24 mmol/L (22-29); Chloride 105 mmol/L (96-108); Creatinine Clr Calc Pharmacy 101.7; Estimated Glomerular Filt Rate > 60; Glucose Random 145 mg/dL (60-115); Potassium 4.1 mmol/L (3.3-5.1); Sodium 136 mmol/L (135-145)
[2024-08-03] MEDS: Azithromycin 500 MG TABLET PO (10:05)
[2024-08-03 10:10] VITALS: BP 144/84; PULSE 75; RESP 16; TEMP 36.7; O2SAT 99
== END 2024-08-03 10:10 | disposition home or self-care (01) ==
PROVIDERS: Emergency Provider Emergency Medicine
DX: K02.9 Dental caries, unspecified (principal); K08.89 Other specified disorders of teeth and supporting structures; Z03.818 Encounter for observation for suspected exposure to other biological agents ruled out; R68.83 Chills (without fever); F17.210 Nicotine dependence, cigarettes, uncomplicated
CPT/HCPCS: 0241U; 36415; 80048; 85025; 86140; 99282; 99283

== ENCOUNTER → 2024-10-15 07:54 | Outpatient (BNVA) | payer OTHER, SELFPAY | PROVIDERS: PCP Internal Medicine; Visit Provider Physician Assistant Surgical ==

== ENCOUNTER 2024-10-22 07:55 | Outpatient (AMB) | payer OTHER, SELFPAY ==
--- NOTE | 2024-10-22 08:02 | A.OFFVIS_ITS ---
Intake Visit Reasons: [employer]MENT [employer] Allergies ibuprofen Adverse Reaction (Mild, Verified 10/22/24 08:02) uti metformin Adverse Reaction (Intermediate, Uncoded 10/22/24 08:02) abdominal pain, diarrhea Medication List - Last Reconciled 10/22/24 by Jed Pierce MD HPI HPI [employer]ELOP[employer]: Details: Start time: 7.55am, End time: 8.30am ?I spent 30 minutes speaking with the patient on the phone plus an additional 5 minutes reviewing and updating records for a total of 35 minutes HPI Comments Details: Previous weight loss: Wegovy: lost 10lbs Wakes up: 6am, Sleeps:8pm Breakfast: 8am (omelet, sandwich) Lunch: 12pm (fast food) Dinner: 6pm (rice, beans, meats) Snacks: 3pm (candy), 7pm (chocolate) Exercise: has home treadmill Fluids: Coffee:rare, tea: none, soda: Regular Coke (3 cans per day), juice: pineapple daily, ETOH: none PFSH Medical History (Updated 10/22/24 @ 08:24 by Jed Pierce MD) Mild recurrent major depression Goiter GERD (gastroesophageal reflux disease) Nephrolithiasis Vitamin D deficiency Elevated dehydroepiandrosterone sulfate level Chest pain Shoulder pain History of calculus of gallbladder Surgical History Hx of tubal ligation Hx of cholecystectomy Family History (Updated 10/15/24 @ 08:11 by Deloris Levine CMA) Mother Epilepsia Diabetes Father High blood pressure Maternal Grandmother Ovarian cancer Son History of IBS Daughter Asthma Anemia Social History (Updated 10/15/24 @ 08:10 by Deloris Levine CMA) Household Members: Children Housing: Apartment Alcohol intake: never Patient Tobacco Use Status: Current everyday Tobacco user Tobacco use type: Cigarette Cigarettes Per Day: 8 e-Cigarette/Vaping Use: Never Used Second Hand Smoke Exposure: No service: No Current occupational status: employed 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 Current occupational exposures/hazards: No Sexual orientation: Straight/Heterosexual Gender identity: Female Cognitive needs: No Hearing needs: No Vision needs: No Telehealth Telehealth Telehealth Platform: Telephone Location of provider rendering services: practice address Location of patient: address on file Patient Identification confirmed using: Name, : Yes Telehealth method: voice only Patient verbally consented to treatment: Yes Patient verbally consented to billing insurance company: Yes Patient informed of any privacy concerns related to visit: Yes Minutes spent on Phone/Video with Pt.: 35 Assessment & Plan Assessment & Plan (1) Obesity: Code(s): E66.9 - Obesity, unspecified Category: Medical Qualifiers: Obesity type: due to excess calories Obesity classification: adult class 2 (BMI 35 - 39.9) Serious obesity comorbidity presence: without serious comorbidity Body mass index: BMI 38.0-38.9 Qualified Code(s): E66.812 - Obesity, class 2; E66.09 - Other obesity due to excess calories; Z68.38 - Body mass index [BMI] 38.0-38.9, adult Plan: 1.? Please buy the body composition scale we discussed and send me weight measurements as soon as possible and then once a week. 2. The best choice for exercise would be to use the treadmill you have at home that can track calories. Goal is to exercise for 150 minutes per week. 3. Goal is to lose at least 1.5-2lbs per week 4. Goal is to lose at least 10% of your weight, which is about 18lbs. Weight goal: 164lbs 5. The patient has high blood pressure and in the past was on Spironolactone. Buy a blood pressure monitor and start measuring your blood pressure daily in the morning and let me know the readings 6. Due to the elevated blood pressure, I ordered a medication to help you with the weight loss which is called Zepbound. My office will try to authorize it. Please let me know when you receive it so I can give you a meal and exercise plan. Common side effects include nausea, vomiting, constipation, diarrhea, abdominal pain. Please let me know if you develop any of these symptoms. 7. Please track the calories you consume daily and aim not to exceed the 1200 calories per day. Avoid high calorie drinks, fried, or high in fat foods as well as large amount of carbohydrares (sweets, potatoes, rice, or pasta). Medications: New tirzepatide (weight loss) (Zepbound) for 4 weeks 2.5 mg (0.5 mL) subcut QWEEK 2 mL 0RF E66.09 - Other obesity due to excess calories, E66.812 - Obesity, class 2, Z68.38 - Body mass index [BMI] 38.0-38.9, adult
== END 2024-10-22 08:30 | disposition home or self-care (01) ==
LOC: HO.HBS 07:55
PROVIDERS: PCP Internal Medicine; Visit Provider Surgery
DX: E66.812 Obesity, class 2 (principal); E66.09 Other obesity due to excess calories; Z68.38 Body mass index [BMI] 38.0-38.9, adult
CPT/HCPCS: 99203

== ENCOUNTER → 2024-10-22 07:55 | Outpatient (BNVA) | payer OTHER, SELFPAY | PROVIDERS: PCP Internal Medicine; Visit Provider Surgery ==

== ENCOUNTER 2024-12-14 08:51 | Outpatient (REF) | payer OTHER, SELFPAY ==
--- NOTE | ~2024-12-14 | XR_ITS ---
EXAMINATION: XR ABDOMEN 1 VIEW (KUB) HISTORY: N20.0 - Calculus of kidney COMPARISON: Correlation is made with an unenhanced CT of the abdomen dated 04/12/2024. FINDINGS: Two supine views of the abdomen are submitted. The bowel gas pattern is unremarkable, without evidence of mechanical obstruction. There is a moderate amount of stool throughout the colon. No abnormal calcifications are identified. The patient is status post cholecystectomy and tubal ligation. There are no abnormal soft tissue masses. The bones are intact. XR/XR KUB IMPRESSION: No suspicious calcifications are identified. Electronically signed by: Javier Roach MD 12/14/2024 11:39 AM EDT
== END 2024-12-14 08:52 | disposition home or self-care (01) ==
LOC: HO.XRAY 08:51
PROVIDERS: PCP Internal Medicine; Visit Provider Nurse Practitioner Family
DX: N20.0 Calculus of kidney (principal)
CPT/HCPCS: 74018

== ENCOUNTER → 2024-12-14 08:55 | Outpatient (BNV) | payer OTHER, SELFPAY | PROVIDERS: PCP Internal Medicine; Visit Provider Radiology Diagnostic Radiology | DX: N20.0 Calculus of kidney (principal) | CPT/HCPCS: 74018 ==

== ENCOUNTER 2025-01-15 07:35 | Outpatient (AMB) | payer OTHER, SELFPAY ==
--- NOTE | 2025-01-15 07:35 | A.OFFVIS_ITS ---
Intake Visit Reasons: 6m/KUB Intake Note: Patient presents for televisit follow up on: Nephrolithiasis, Microscopic Hematuria, and KUB X-ray results Imaging Completed: 12/14/24 Urology Medications: none Blood Thinner: none Chiropractic Doctor Required: No Accompanied by: Self / Same As Patient Allergies ibuprofen Adverse Reaction (Mild, Verified 01/15/25 08:07) uti metformin Adverse Reaction (Intermediate, Uncoded 01/15/25 08:07) abdominal pain, diarrhea Medication List - Last Reconciled 01/15/25 by NICKOLAS Roach oxybutynin chloride ER 10 mg PO DAILY 30 days HPI Comments Details: Belinda is a pleasant 34-year-old female patient of Dr. Estrada. She has a past medical history of PCOS, goiter, GERD, nephrolithiasis, depression, and vitamin-D deficiency. She is being followed up on today via video telehealth. In discussion with the patient today she reports to be doing and feeling well. Recent KUB imaging results reviewed with the patient today. 01/04 no suspicious calcifications are identified. She does continue to report episodes of urinary frequency and nocturia despite lifestyle modifications. She also reports urge/stress incontinence. We discussed potential causes of nephrolithiasis as well as lower urinary tract symptoms patient is experiencing. We discussed further treatment options and risks and benefits of these treatment options. She otherwise denies hematuria, dysuria, foul smelling urine, changes to urinary stream, flank pain, fever, and or chills. She does have a history of microscopic hematuria in the setting of nicotine dependence. We have discussed further workup to include cystoscopy. 02/02 urine cytology results reviewed with the patient today Negative for high-grade urothelial carcinoma. When asked she does report a longstanding history of cigarette smoking. She reports smoking approximately half a pack per day since the age of 14. She otherwise denies any known workplace chemical exposure. Discussed at length potential causes of microscopic hematuria as well as further workup to include in office cystoscopy versus surveillance monitoring. Risks and benefits of these interventions were discussed. All questions were answered. [facility] Medical History Mild recurrent major depression Goiter GERD (gastroesophageal reflux disease) Nephrolithiasis Vitamin D deficiency Elevated dehydroepiandrosterone sulfate level Chest pain Shoulder pain History of calculus of gallbladder Surgical History Hx of tubal ligation Hx of cholecystectomy Family History Mother Epilepsia Diabetes Father High blood pressure Maternal Grandmother Ovarian cancer Son History of IBS Daughter Asthma Anemia Social History Household Members: Children Housing: Apartment Alcohol intake: never Patient Tobacco Use Status: Current everyday Tobacco user Tobacco use type: Cigarette Cigarettes Per Day: 8 e-Cigarette/Vaping Use: Never Used Second Hand Smoke Exposure: No service: No Current occupational status: employed 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 Current occupational exposures/hazards: No Sexual orientation: Straight/Heterosexual Gender identity: Female Cognitive needs: No Hearing needs: No Vision needs: No Review of Systems Const All systems reviewed & are unremarkable except as noted in HPI and below Physical Exam Const General: cooperative, healthy appearing, comfortable, no acute distress, well developed, alert and awake Orientation/consciousness: patient oriented x3 Resp Effort & Inspection: normal respiratory effort and able to speak in complete sentences Neuro General: patient oriented x3 Psych Appearance: grossly normal and well kempt Mental Status: mental status grossly normal Speech and movement: Clear speech present Affect: normal affect Attitude: cooperative Thought process: Normal thought process present Thought content: Normal thought content present Insight: Fair insight present (Psych) Judgement: Fair judgement present (Psych) Telehealth Telehealth Telehealth Platform: [facility] Location of provider rendering services: practice address Location of patient: address on file Patient Identification confirmed using: Name, : Yes Telehealth method: video Patient verbally consented to treatment: Yes Patient verbally consented to billing insurance company: Yes Patient informed of any privacy concerns related to visit: Yes Minutes spent on Phone/Video with Pt.: 20 Results Reviewed Results Reviewed: Date of Service: 12/14/24 Procedure(s): XR KUB FINDINGS: Two supine views of the abdomen are submitted. The bowel gas pattern is unremarkable, without evidence of mechanical obstruction. There is a moderate amount of stool throughout the colon. No abnormal calcifications are identified. The patient is status post cholecystectomy and tubal ligation. There are no abnormal soft tissue masses. The bones are intact. IMPRESSION: No suspicious calcifications are identified. Assessment & Plan Assessment & Plan (1) Nicotine dependence: Code(s): F17.200 - Nicotine dependence, unspecified, uncomplicated Category: Medical (2) Microscopic hematuria: Code(s): R31.29 - Other microscopic hematuria Category: Medical (3) Nephrolithiasis: Code(s): N20.0 - Calculus of kidney Category: Medical (4) Urinary frequency: Code(s): R35.0 - Frequency of micturition Category: Medical (5) Nocturia: Code(s): R35.1 - Nocturia Category: Medical (6) Mixed incontinence urge and stress: Code(s): N39.46 - Mixed incontinence Category: Medical Plan Recent KUB results reviewed with the patient today; as noted above. We discussed at length potential causes of nocturia as well as urinary frequency and further treatment options and risks and benefits of these treatment options. We discussed bladder triggers/irritants. Start oxybutynin as discussed and prescribed. Will obtain sleep study for further assessment evaluation. We discussed importance of limiting fluids 2-3 hours prior to bed to decrease episodes of nocturia. Follow-up in 1-3 months with [facility]; or sooner with any issues, concerns, and or questions. Orders: Orders RT home sleep study Today R35.1 - Nocturia, R53.83 - Other fatigue Medications: New oxybutynin chloride ER 10 mg PO DAILY 30 tabs 3RF 30 days N32.81 - Overactive bladder Patient Instructions: The patient had an opportunity to ask questions regarding the treatment plan. All questions were answered. Physical exam, labs, and imaging were discussed and reviewed in detail. As well as risks, benefits, and discussion of treatment choices. No major barriers to understanding were identified. The patient expressed understanding and agreement with the above treatment plan. The patient was made aware they should contact our office by phone for worsening of their current condition, the appearance of new symptoms, or with any questions or concerns. Compliance is encouraged with any medications and follow up testing that is ordered. It is a privilege to be allowed the opportunity to participate in? your urological care.? Again, if you have any questions or concerns If you have any questions or concerns please do not hesitate to contact me. The office is [phone]. This note is constructed using voice recognition software. While every effort has been made to ensure accuracy admin asst errors may have been included. Yours sincerely, NICKOLAS Roach Coding Level of Care Code Tele Est Pt Level 4 (71800) Diagnoses Nicotine dependence F17.200 Microscopic hematuria R31.29 Nephrolithiasis N20.0 Urinary frequency R35.0 Nocturia R35.1 Mixed incontinence urge and stress N39.46
== END 2025-01-15 08:22 | disposition home or self-care (01) ==
LOC: HO.HUSH 07:35
PROVIDERS: PCP Internal Medicine; Visit Provider Nurse Practitioner Family
DX: R31.29 Other microscopic hematuria (principal); N20.0 Calculus of kidney; R35.0 Frequency of micturition; F17.200 Nicotine dependence, unspecified, uncomplicated; R35.1 Nocturia; N39.46 Mixed incontinence
CPT/HCPCS: 99214

== ENCOUNTER 2025-01-17 09:11 | Outpatient (AMB) | payer OTHER, SELFPAY ==
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
[2025-01-17 10:03] VITALS: BP 122/74; BMI 39.9
== END 2025-01-17 11:21 | disposition home or self-care (01) ==
LOC: HO.HSMS 09:11
PROVIDERS: PCP Internal Medicine; Visit Provider Nurse Practitioner Family
DX: R51.9 Headache, unspecified (principal); G51.8 Other disorders of facial nerve; R40.4 Transient alteration of awareness; Z82.0 Family history of epilepsy and other diseases of the nervous system
CPT/HCPCS: 99204

== ENCOUNTER → 2025-01-17 09:11 | Outpatient (BNVA) | payer OTHER, SELFPAY | PROVIDERS: PCP Internal Medicine; Visit Provider Nurse Practitioner Family | DX: R51.9 Headache, unspecified (principal); G51.8 Other disorders of facial nerve; R40.4 Transient alteration of awareness; Z82.0 Family history of epilepsy and other diseases of the nervous system; M54.2 Cervicalgia | CPT/HCPCS: 99202 ==

== ENCOUNTER 2025-02-07 08:15 | Outpatient (REF) | payer OTHER, SELFPAY ==
--- NOTE | 2025-02-07 08:17 | EEG_ITS ---
This is a 16 channel EEG with an EKG lead. The patient is reported awake during the tracing. Background EEG rhythm is 5-50 microvolt, 8-10 hertz posteriorly, lower amplitude fast anteriorly. Almost continuous EKG artifacts are noted, especially in left hemispheric leads. Muscle and lead artifacts are also noted. Patient transitioned in and out of drowsiness. Photic stimulation does not produce any significant abnormality. Hyperventilation is not performed. Cardiac lead does not reveal any significant abnormality. IMPRESSION: No significant abnormality noted on this EEG. MD JORGE ALBERTO Maki/CONNIE / [id number]
== END 2025-02-07 08:16 | disposition home or self-care (01) ==
LOC: HO.NEURO 08:15
PROVIDERS: PCP Internal Medicine; Visit Provider Nurse Practitioner Family
DX: R41.82 Altered mental status, unspecified (principal); Z82.0 Family history of epilepsy and other diseases of the nervous system
CPT/HCPCS: 95816

== ENCOUNTER 2025-02-25 09:35 | Outpatient (REF) | payer OTHER, SELFPAY ==
--- NOTE | ~2025-02-25 | MR_ITS ---
EXAMINATION: MR ANGIOGRAPHY BRAIN WITHOUT CONTRAST CLINICAL INFORMATION: Change in mental status. COMPARISON: None available. TECHNIQUE: Axial 3-D [id number]. Maximum intensity projections [place]. FINDINGS: Limited by patient's motion artifact. No flow signal gap or abrupt cut off within the vessels of the anterior and posterior circulation of the [place]. Right vertebral artery slightly dominant. There is a questionable right anterior inferior and posterior inferior cerebellar artery trunk. There is a hypoplastic/atrophic left A1 segment with a robust left posterior communicating artery. There is a flow signal within the anterior cerebral artery and the ophthalmic arteries. MR/MR angio head wo con IMPRESSION: No main cerebral artery occlusion or embolus or gross aneurysm. Probable origin left FLASK PUSHER. Electronically signed by: Jurgen Zuñiga MD 02/25/2025 11:37 AM EDT
--- NOTE | ~2025-02-25 | XR_ITS ---
EXAMINATION: XR CERVICAL SPINE CLINICAL INFORMATION: M54.2 - Cervicalgia COMPARISON: None available. TECHNIQUE: 7 views of the cervical spine, including bilateral oblique and flexion and extension views, were obtained. FINDINGS: There is straightening of cervical lordosis. There is no prevertebral edema. C2-3: Unremarkable. Dens is not optimally injury. C3-4: Unremarkable. There is 2 mm retrolisthesis during extension. C4-5: There is mild space narrowing with anterior osteophytes. C5-6: There is subtle anterolisthesis and small endplate osteophytes. There is mild disc space narrowing. C6-7: Unremarkable C7-T1: Obscured by overlying soft tissues. XR/XR cervical spine w flex/ext IMPRESSION: There is straightening of the expected cervical lordosis. This can be idiopathic, but can also be related to degenerative change, muscle spasm, or posterior soft tissue injury. Degenerative disc disease is most pronounced at C4-5 and C5-6. C3-4 demonstrates 2 mm retrolisthesis during extension. Up to 3 mm movement during flexion and extension is considered within normal limits. Electronically signed by: Ricky Alfaro MD 02/25/2025 11:10 AM EDT
--- NOTE | ~2025-02-25 | MR_ITS ---
EXAMINATION: MR BRAIN WITHOUT CONTRAST CLINICAL INFORMATION: Change in mental status. COMPARISON: Correlated to CT dated February 24, 2023. TECHNIQUE: MRI of the brain was obtained using routine sequences without contrast. FINDINGS: No restricted diffusion. No acute intracranial hemorrhage, mass effect, midline shift, hydrocephalus or herniation. Gauthier-white matter differentiation is normal. Anterior cranial fossa contents demonstrated no signal abnormality or mass effect. Sellar/suprasellar region extended no signal abnormality or masses. Craniocervical junction demonstrates normal position of the cerebellar tonsils. No signal abnormality or volume loss in the hippocampi. Flow-void signal within the main cerebral vessels is normal. MR/MR head/brain wo con IMPRESSION: No acute or structural brain abnormality. Electronically signed by: Jurgen Zuñiga MD 02/25/2025 11:35 AM EDT
== END 2025-02-25 09:36 | disposition home or self-care (01) ==
LOC: HO.MRI 09:35
PROVIDERS: PCP Internal Medicine; Visit Provider Nurse Practitioner Family
DX: M54.2 Cervicalgia (principal); R51.9 Headache, unspecified; R41.82 Altered mental status, unspecified; G51.8 Other disorders of facial nerve; Z82.0 Family history of epilepsy and other diseases of the nervous system
CPT/HCPCS: 70544; 70551; 72052

== ENCOUNTER → 2025-02-25 09:39 | Outpatient (BNV) | payer OTHER, SELFPAY | PROVIDERS: PCP Internal Medicine; Visit Provider Radiology Diagnostic Radiology | DX: R51.9 Headache, unspecified (principal); M54.2 Cervicalgia | CPT/HCPCS: 70544; 70551 ==

== ENCOUNTER 2025-02-28 08:00 | Outpatient (RCR) | payer OTHER, SELFPAY ==
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
--- NOTE | 2025-03-25 10:35 | MHC.PT.DC ---
[facility] [place] Office [place] Office [place] Office [address] Con Rosales [address] [phone] F: [phone] F: [phone] F: [phone] F: [phone] Physical Therapy Discharge Report Diagnosis: cervicalgia Date of Surgery: n/a Date of Evaluation: 02/18/25 Date of Discharge: 03/25/25 Treatments to Date: 2 Cancellations to Date: 0 No Shows to Date: 2 Discharge Status: Visit Non-compliance Discharge Summary: Pt failed to comply with [facility] attendance policy and no showed 2 appointments. Therefore to be d/c. Electronically signed by: Kellee Vogel, PT, DPT, ATC Please sign and return to therapist. Thank you for your referral.
== END 2025-03-25 10:35 | disposition home or self-care (01) ==
LOC: HO.PTCHIC 08:00
PROVIDERS: PCP Internal Medicine; Visit Provider Nurse Practitioner Family
DX: M54.2 Cervicalgia (principal); R51.9 Headache, unspecified
CPT/HCPCS: 97110; 97162

== ENCOUNTER → 2025-03-25 09:27 | Outpatient (REF) | payer OTHER, SELFPAY | LOC: HO.SL 09:27 | PROVIDERS: PCP Internal Medicine; Visit Provider Nurse Practitioner Family | DX: R35.1 Nocturia (principal); R53.83 Other fatigue; R06.83 Snoring; R51.9 Headache, unspecified; R40.0 Somnolence | CPT/HCPCS: 95806 ==

== ENCOUNTER → 2025-03-25 09:46 | Outpatient (BNV) | payer OTHER, SELFPAY | PROVIDERS: PCP Internal Medicine; Visit Provider Internal Medicine | DX: R06.83 Snoring (principal) | CPT/HCPCS: 95806 ==

== ENCOUNTER 2025-04-19 07:32 | Outpatient (AMB) | payer OTHER, SELFPAY ==
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
== END 2025-04-19 16:20 | disposition home or self-care (01) ==
LOC: HO.HSMS 07:33
PROVIDERS: PCP Internal Medicine; Visit Provider Nurse Practitioner Family
DX: G43.709 Chronic migraine without aura, not intractable, without status migrainosus (principal); R51.9 Headache, unspecified; G51.8 Other disorders of facial nerve; Z82.0 Family history of epilepsy and other diseases of the nervous system
CPT/HCPCS: 99214

== ENCOUNTER 2025-05-02 10:29 | Outpatient (AMB) | payer OTHER, SELFPAY ==
[2025-05-02 10:31] VITALS: BP 140/78; RESP 18; TEMP 36.1; BMI 40.4
--- NOTE | 2025-05-02 10:31 | A.OFFPC_ITS ---
Vital Signs 05/02/25 10:31 Height 4 ft 10 in Weight 193 lb 2 oz BMI 40.4 BP 140/78 H Blood Pressure Location Lt brachial Position Sitting Respiration 18 Pulse Source Pulse Oximeter Temp 96.9 F Temp Source Temporal Artery Scan Oxygen Delivery Method Room Air Intake Visit Reasons: high BP, mouth pain Manager Clinical Required: No Accompanied by: Self / Same As Patient Allergies ibuprofen Adverse Reaction (Mild, Verified 05/02/25 10:51) uti metformin Adverse Reaction (Intermediate, Uncoded 05/02/25 10:51) abdominal pain, diarrhea Medication List - Last Reconciled 05/02/25 by Charleen Soliman MD amitriptyline 10 mg PO DAILY 30 days magnesium oxide 400 mg PO BEDTIME 30 days oxybutynin chloride ER 10 mg PO DAILY 30 days sumatriptan succinate 50 - 100 mg orally at onset of headache, may repeat in 2 hrs PRN; max 2 tabs per day or 4 tabs/week (may take with naproxen) 30 days Tobacco use date assessed: 05/02/25 Dental Screening Dental Screen Date: 05/02/25 Did you have a dental visit in the last 12 months?: Yes Did you have a dental problem in the last 6 months where you did not have access to dental care?: No Was dental information given to patient?: Patient has dentist HPI HPI Comments History of Present Illness Details The patient is a 35-year-old female presenting with elevated blood pressure and management of multiple chronic conditions. The patient reports a history of hypertension, with a recent blood pressure reading of 156/98 mmHg, which was considered high by her dentist. She is concerned about undergoing dental procedures with elevated blood pressure and seeks management options to lower it below 140/90 mmHg. The patient has a history of allergic reactions to ibuprofen, which causes urinary tract infections, and metformin, which previously caused nausea. She expresses interest in retrying metformin despite past nausea, as she is experiencing shakiness and other neurological symptoms. Neurological symptoms include episodes of shaking, tingling of the tongue, temporary deafness, and feeling drained after episodes. She has been evaluated by a neurologist, who ruled out seizures, and is currently being tested for vertigo. The patient reports urinary incontinence and has discontinued oxybutynin due to severe dry mouth. She is currently taking amitriptyline for migraines and depression, and magnesium for migraines. The patient is morbidly obese and has been prescribed spironolactone for facial hair growth, which also aids in blood pressure management. She has a new lump on the right anterior lower part of her neck, which she recently discovered. [facility] Medical History (Updated 05/02/25 @ 11:08 by Charlene Soliman MD) Mild recurrent major depression Goiter GERD (gastroesophageal reflux disease) Nephrolithiasis Vitamin D deficiency Elevated dehydroepiandrosterone sulfate level Chest pain Shoulder pain History of calculus of gallbladder Surgical History Hx of tubal ligation Hx of cholecystectomy Family History Mother Epilepsia Diabetes Father High blood pressure Maternal Grandmother Ovarian cancer Son History of IBS Daughter Asthma Anemia Social History Household Members: Children Housing: Apartment Alcohol intake: never Patient Tobacco Use Status: Current everyday Tobacco user Tobacco use type: Cigarette Cigarettes Per Day: 8 e-Cigarette/Vaping Use: Never Used Second Hand Smoke Exposure: No service: No Current occupational status: employed 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 1. Little interest or pleasure in doing things: several days 2. Feeling down, depressed, or hopeless: several days 3. Trouble falling or staying asleep, or sleeping too much: several days 4. Feeling tired or having little energy: several days 5. Poor appetite or overeating: several days 6. Feeling bad about yourself - or that you are a failure or have let yourself or your family down: several days 7. Trouble concentrating on things, such as reading the newspaper or watching television: not at all 8. Moving or speaking so slowly that other people could have noticed. Or the opposite - being so fidgety or restless that you have been moving around a lot more than usual: not at all 9. Thoughts that you would be better off or of hurting yourself in some way: not at all Total score: 6 Depression Screening Interpretation: Positive Depression Screening Follow-up: Existing condition and Follow-up Visit Requested Depression Screening Done: Yes 55868 - PHQ-9 Billing: Yes Source: Developed by Drs. Javier Tam, Shannan Machado, Roc Crystal and colleagues, with an educational darvin from [employer]. Thrive Questionnaire Date Thrive assessed: 05/02/25 I am a: Patient What is your living situation today?: I have a steady place to live Within the past 12 months, did the food you bought not last and you didn't have the money to get more?: Never true Within the past 12 months, did you worry whether your food would run out before you got money to buy more?: Never true Do you have trouble paying for medicines?: No Do you have trouble getting transportation to medical appointments?: Yes Do you have trouble paying your heating and electricity bill?: No Do you have trouble taking care of your child, family member or friend?: No Do you have trouble with day-to-day activities such as bathing, preparing meals, shopping, managing finances, etc.?: I choose not to answer this question Are you currently unemployed and looking for a job?: Yes Are you interested in more education?: No Please select the resources that you would like help with: None Currently or been in a relationship where the following occur: I choose not to answer THRIVE Score: 1 AUDIT C Alcohol Use Questionnaire (AUDIT-C) 1. How often do you have a drink containing alcohol?: Never Total Score: 0 Score Reviewed/Action Taken: No DESHAWN-7 AMB Questionnaire DESHAWN-7 Date DESHAWN - 7 assessed: 05/02/25 Feeling nervous, anxious, or on edge: 1 = Several days Not being able to stop or control worryin = Nearly every day Worrying too much about different things: 3 = Nearly every day Trouble relaxin = Nearly every day Being so restless that it is hard to sit still: 3 = Nearly every day Becoming easily annoyed or irritable: 3 = Nearly every day Feeling afraid as if something awful might happen: 3 = Nearly every day Total DESHAWN-7 score (0-4 normal; 5-9 mild; 10-14 moderate; 15-21 severe): 19 Source: Developed by Drs. Javier Tam, Shannan Machado, Roc Crystal and colleagues, with an educational darvin from [employer]. DESHAWN-7 Assessment Billing DESHAWN-7 Assessment Tool: DESHAWN-7 Assessment 70569 Review of Systems Const All systems reviewed & are unremarkable except as noted in HPI and below Card Denies chest pain at rest, Denies chest pain with activity, Denies edema, Denies irregular heart rhythm, Denies claudication, Denies dyspnea, Denies dyspnea on exertion, Denies orthopnea, Denies paroxysmal nocturnal dyspnea and Denies slow heart rate Resp Denies cough, Denies dyspnea and Denies dyspnea on exertion GI Denies abdominal pain, Denies change in bowel habits, Denies excessive flatus, Denies nausea and Denies vomiting Denies urinary incontinence, Denies urinary hesitancy and Denies urinary urgency Musc Denies atrophy, Denies deformity and Denies limited range of motion Physical exam (Primary Care) Vital Signs: Last Vital Signs Temp 96.9 F 05/02/25 10:31 Resp 18 05/02/25 10:31 BP 140/78 H 05/02/25 10:31 Oxygen Delivery Method Room Air 05/02/25 10:31 BMI result Body Mass Index 40.4 BMI Assessment/Plan discussion: High BMI High, discussed plan: lifestyle, weight reduction, dietary and physical activity Tobacco/Smoking Status: Tobacco use Status Tobacco use date assessed 05/02/25 05/02/25 10:40 Patient Tobacco Use Status Current everyday Tobacco 05/02/25 10:40 Tobacco use type Cigarette 05/02/25 10:40 e-Cigarette/Vaping Use Never Used 05/02/25 10:40 PHQ-9: PHQ-9 Score PHQ-9: Total score 6 05/02/25 10:40 Depression Screening Interpretation: Positive Depression Screening Follow-up: Existing condition and Follow-up Visit Requested Thrive Assessment: Date of Thrive Assessment Date Thrive assessed 05/02/25 05/02/25 10:40 Currently or been in a relationship where the following occur: I choose not to answer Resp Effort & Inspection: normal respiratory effort Auscultation: clear to auscultation bilaterally Cardio Jugular venous distension: no JVD Rate: regular rate Rhythm: regular rhythm Heart sounds: S1 normal heart sound present and S2 normal heart sound present Extrem General: Yes full ROM Coding Level of Care Code Est Pt Level 4 (94452) Complex EM visit Add On G2211 Diagnoses Severe major depression without psychotic features F32.2 DESHAWN (generalized anxiety disorder) F41.1 Morbid obesity with BMI of 40.0-44.9, adult E66.01; Z68.41 Chronic migraine without aura without status migrainosus, not intractable G43.709 Status migrainosus presence: without status migrainosus Intractability: not intractable Hirsutism L68.0 Head and neck lymphadenopathy R59.1 Fatigue R53.83 Dizziness R42 Additional Codes PHQ-9 - 26628 - PHQ-9 Billing: Yes ([id number]) DESHAWN-7 Assessment Billing - DESHAWN-7 Assessment Tool: DESHAWN-7 Assessment 45045 ([id number]) Time Spent (min) 20 Assessment & Plan Assessment & Plan (1) Severe major depression without psychotic features: Code(s): F32.2 - Major depressive disorder, single episode, severe without psychotic features Category: Medical (2) DESHAWN (generalized anxiety disorder): Code(s): F41.1 - Generalized anxiety disorder Category: Medical (3) Morbid obesity with BMI of 40.0-44.9, adult: Code(s): E66.01 - Morbid (severe) obesity due to excess calories; Z68.41 - Body mass index [BMI] 40.0-44.9, adult Category: Medical (4) Chronic migraine without aura: Code(s): G43.709 - Chronic migraine without aura, not intractable, without status migrainosus Category: Medical Qualifiers: Status migrainosus presence: without status migrainosus Intractability: not intractable Qualified Code(s): G43.709 - Chronic migraine without aura, not intractable, without status migrainosus (5) Hirsutism: Code(s): L68.0 - Hirsutism Category: Medical (6) Head and neck lymphadenopathy: Code(s): R59.1 - Generalized enlarged lymph nodes Category: Medical (7) Fatigue: Code(s): R53.83 - Other fatigue Category: Medical (8) Dizziness: Code(s): R42 - Dizziness and giddiness Category: Medical Plan The plan includes managing the patient's hypertension by starting medication to lower her blood pressure below 140/90 mmHg, with a follow-up appointment in three weeks to monitor progress. The patient will retry metformin to address her obesity and potential polycystic ovary syndrome PCOS), with monitoring for any adverse effects such as nausea. Neurological symptoms will continue to be evaluated, with ongoing testing for vertigo and consideration of other potential causes. For urinary incontinence, the patient has discontinued oxybutynin due to dry mouth, and alternative management strategies may be considered. The patient will undergo an ultrasound to evaluate the new neck lump, and a referral to endocrinology will be made for further assessment of facial hair growth. Patient was informed and verbally consented to the use of an ambient scribe for clinic note documentation during this visit. Orders: Orders Comprehensive [place]. Panel Fast Today R42 - Dizziness and giddiness Vitamin B12 and Folate Today E53.8 - Deficiency of other specified B group vitamins, R53.83 - Other fatigue Lipid Panel Today E78.5 - Hyperlipidemia, unspecified, Z68.38 - Body mass index [BMI] 38.0-38.9, adult US soft tiss head and/or neck Today R59.1 - Generalized enlarged lymph nodes DHEA Sulfate Today L68.0 - Hirsutism Testosterone, Free/Total Today L68.0 - Hirsutism Complete Blood Count Auto Diff Today D64.9 - Anemia, unspecified, R42 - Dizziness and giddiness Vitamin D 25-OH Total Today E55.9 - Vitamin D deficiency, unspecified, R53.83 - Other fatigue Thyroid Stimulating Hormone Today R53.83 - Other fatigue Referrals 2 Endocrinology Referral L68.0 - Hirsutism Medications: New metformin 500 mg PO DAILY 90 tabs 1RF 90 days spironolactone 50 mg PO DAILY 90 tabs 1RF 90 days
== END 2025-05-02 11:30 | disposition home or self-care (01) ==
LOC: HO.HMCH 10:29
PROVIDERS: PCP Internal Medicine; Visit Provider Internal Medicine
DX: F32.2 Major depressive disorder, single episode, severe without psychotic features (principal); F41.1 Generalized anxiety disorder; E66.01 Morbid (severe) obesity due to excess calories; Z68.41 Body mass index [BMI] 40.0-44.9, adult; G43.709 Chronic migraine without aura, not intractable, without status migrainosus; L68.0 Hirsutism; R59.1 Generalized enlarged lymph nodes; R53.83 Other fatigue; R42 Dizziness and giddiness

== ENCOUNTER → 2025-05-02 10:29 | Outpatient (BNVA) | payer OTHER, SELFPAY | PROVIDERS: PCP Internal Medicine; Visit Provider Internal Medicine | DX: I10 Essential (primary) hypertension (principal); R32 Unspecified urinary incontinence; G43.909 Migraine, unspecified, not intractable, without status migrainosus; E66.01 Morbid (severe) obesity due to excess calories; F32.2 Major depressive disorder, single episode, severe without psychotic features; F41.1 Generalized anxiety disorder; G43.709 Chronic migraine without aura, not intractable, without status migrainosus; L68.0 Hirsutism; R53.1 Weakness; R53.83 Other fatigue; R42 Dizziness and giddiness; Z68.41 Body mass index [BMI] 40.0-44.9, adult; Z79.899 Other long term (current) drug therapy | CPT/HCPCS: 96127; 99212 ==

== ENCOUNTER 2025-05-22 07:10 | Emergency (ER) | payer OTHER, SELFPAY ==
--- NOTE | 2025-05-22 | ECG_ITS ---
Test Reason : chest pain Blood Pressure : */* mmHG Vent. Rate : 71 BPM Atrial Rate : 71 BPM P-R Int : 130 ms QRS Dur : 78 ms QT Int : 388 ms P-R-T Axes : 33 18 11 degrees QTcB Int : 421 ms Normal sinus rhythm with sinus arrhythmia Normal ECG When compared with ECG of 12-Oct-2021 10:07, No significant change was found Referred By: Generic ED Physician Electronically Signed By: RENNY VALDEZ MD
--- NOTE | ~2025-05-22 | XR_ITS ---
EXAMINATION: XR CHEST CLINICAL INFORMATION: chest pain COMPARISON: October 12, 2021 TECHNIQUE: PA and lateral views FINDINGS: No prominence of the interstitial markings. No hyperinflation. No consolidation pleural effusion or pneumothorax. Cardiomediastinal silhouette size is normal. Mild S-shaped curvature of the thoracic spine. Patient's large body habitus/obesity. The piercing at the nipple areola region is not demonstrated. XR/XR chest 2V IMPRESSION: Acute small airway inflammatory processes should be considered in the correct clinical settings. Electronically signed by: Jurgen Zuñiga MD 05/22/2025 09:28 AM EDT
[2025-05-22 07:28] VITALS: BP 154/87; PULSE 68; RESP 18; TEMP 36.7; O2SAT 100; BMI 25.5
[2025-05-22 07:53] LABS: MANUAL DIFF FLAG NO
[2025-05-22 07:58] LABS: Hematocrit 40.9 % (37.0-47.0); Hemoglobin 13.9 g/dl (12.0-16.0); Imm Gran Abs Auto 0.09 X10*3/uL (0.00-0.03); Imm Gran Pct Auto 0.8 % (0.0-0.4); Lymphocytes Absolute Auto 2.6 X10*3/uL (1.2-4.9); Mean Corpuscular HGB Conc 34.0 g/dl (31.0-35.0); Mean Corpuscular Hemoglobin 29.6 pg (27.0-33.0); Mean Corpuscular Volume 87.2 fL (80.0-98.0); NRBC Abs Auto 0.000 X10*3/uL (0.0-0.012); NRBC Pct Auto 0.0 /100WBC (0.0-0.2); Platelet Count 393 X10*3/uL (160-400); Red Blood Count 4.69 X10*6/uL (4.20-5.50); White Blood Count 10.8 X10*3/uL (4.8-10.8)
[2025-05-22 08:15] VITALS: BP 117/87; PULSE 69; RESP 18; TEMP 36.8; O2SAT 98
[2025-05-22 08:38] LABS: Anion Gap 12 (12-20); Blood Urea Nitrogen 7 mg/dL (9-16); Calcium 9.0 mg/dL (8.4-10.2); Carbon Dioxide 22 mmol/L (22-29); Chloride 109 mmol/L (96-108); Creatinine Clr Calc Pharmacy 128.4; Estimated Glomerular Filt Rate > 60; Potassium 4.1 mmol/L (3.3-5.1); Sodium 139 mmol/L (135-145)
--- NOTE | 2025-05-22 08:38 | ED_ITS ---
HPI - Chest Pain General Chief Complaint: Chest Pain Stated Complaint: CP, cant sleep. Facial numbness last night, sob Time Seen by Provider: 05/22/25 08:08 Source: patient Mode of arrival: ambulatory Limitations: no limitations History of Present Illness HPI narrative: This is a 35 years old female patient presented to the emergency department with a chief complaint of chest pain ongoing for about 2 days. The pain is worse when she lies down better sitting up walking. No exertional symptoms no radiation to the pain. MD complaint: chest pain Onset (ago): day(s) (2) Timing of current episode: episodic Onset: during rest Pain location: substernal Pain radiation: none Severity: moderate Quality: aching Relieving factors: nothing Exacerbating factors: other (Lying down) Risk Factors Coronary artery disease risk factors: hypertension Related Data Previous Rx's ?Medication ?Instructions ?Recorded oxybutynin chloride 10 mg 10 mg PO DAILY 30 days #30 t abs 01/15/25 tablet,extended release 24 hr magnesium oxide 400 mg (241.3 mg 400 mg PO BEDTIME 30 days #30 tabs 01/17/25 magnesium) tablet sumatriptan succinate 100 mg tablet 50 - 100 mg (0.5 - 1 x 100 mg) PO 01/17/25 .COMPLEX PRN migraine headache 30 days #12 tabs amitriptyline 10 mg tablet 10 mg PO DAILY 30 days #30 tabs 04/19/25 metformin 500 mg tablet 500 mg PO DAILY 90 days #90 tabs 05/02/25 spironolactone 50 mg tablet 50 mg PO DAILY 90 days #90 tabs 05/02/25 Allergies Allergy/AdvReac Type Severity Reaction Status Date / Time ibuprofen AdvReac Mild uti Verified 05/22/25 07:30 metformin AdvReac Intermediate abdominal Uncoded 05/02/25 10:51 pain, diarrhea Review of Systems 2 Constitutional: Constitutional: Reports no additional constitutional complaints ENT: Reports system reviewed and no additional complaints, except as documented Cardiovascular: Cardiovascular: Reports as per [facility] Past Medical History Attestation statement: The following information was validated with the patient. [facility] Narrative: Polycystic ovarian syndrome, chronic migraine, hypertension Medical History Mild recurrent major depression Goiter GERD (gastroesophageal reflux disease) Nephrolithiasis Vitamin D deficiency Elevated dehydroepiandrosterone sulfate level Chest pain Shoulder pain History of calculus of gallbladder Surgical History Hx of tubal ligation Hx of cholecystectomy Family History Family History Mother Epilepsia Diabetes Father High blood pressure Maternal Grandmother Ovarian cancer Son History of IBS Daughter Asthma Anemia Social History Social History Household Members: Children Housing: Apartment Alcohol intake: never Patient Tobacco Use Status: Current everyday Tobacco user Tobacco use type: Cigarette Cigarettes Per Day: 8 e-Cigarette/Vaping Use: Never Used Second Hand Smoke Exposure: No Advance Directives: No Advance Directives Information Provided: Yes Do you have a plan to hurt others: No Plan service: No Current occupational status: employed 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 Current occupational exposures/hazards: No Sexual orientation: Straight/Heterosexual Gender identity: Female Cognitive needs: No Hearing needs: No Vision needs: No Physical Exam 2 Exam: Exam: Patient looks well not toxic-appearing comfortable in the stretcher Vital Signs: Vital Signs: Last Vital Signs Temp 98.2 F 05/22/25 08:15 Pulse 71 05/22/25 10:03 Resp 17 05/22/25 10:03 BP 137/70 05/22/25 10:03 Pulse Ox 98 05/22/25 10:03 O2 Del Method Room Air 05/22/25 10:03 BMI result Body Mass Index 25.5 Const: General: cooperative Nutritional Appearance: well nourished O rientation/consciousness: patient oriented x3 HEENT: Head: Yes normal to inspection General nose exam: Normal external nose present Neck: Neck: Yes normal visual inspection Chest: Chest palpation & inspection: normal inspection of the chest Resp: Effort & Inspection: normal respiratory effort Auscultation: clear to auscultation bilaterally Cardio: Jugular venous distension: no JVD Rate: regular rate Rhythm: r egular rhythm GI: Inspection: Yes normal to inspection Palpation (GI): Soft to palpation, not firm and nontender Auscultation: normal bowel sounds Skin: General skin exam: no rashes or lesions noted Lesions: no lesions Rashes: no rashes Neuro: General: patient oriented x3 Extrem: General: Yes normal to inspection Course Reevaluation(s) Reevaluation #1: I sensitive troponin is negative, I did a point of care cardiac ultrasound no pericardial effusion she has a good wall motion ascending aorta looks well. Patient does not want us to repeat the 2nd troponin she wants to go home Time: 10:58 Medications Administered Discontinued Medications Generic Name Dose Route Start Last Admin Trade Name Vincenzo PRN Reason Stop Dose Admin Acetaminophen 975 mg 05/22/25 10:56 05/22/25 11:11 Acetaminophen 325 Mg Tablet PO 05/22/25 10:57 975 mg ONCE ONE Administration Al Hydroxide/Mg Hydroxide 30 ml 05/22/25 08:37 05/22/25 09:59 Magnesium Hydrox/Alum Hydrox 30 Ml Oral.Susp PO 05/22/25 08:38 30 ml ONCE ONE Administration Lidocaine HCl 5 ml 05/22/25 08:37 05/22/25 09:59 Lidocaine Hcl Viscous 2 % 15 Ml Solution MUCOUS MEM 05/22/25 08:38 5 ml ONCE ONE Administration Omeprazole 40 mg 05/22/25 08:36 05/22/25 09:59 Omeprazole 40 Mg Capsule. PO 05/22/25 08:37 40 mg ONCE ONE Administration Medical Decision Making Medical Decision Making [facility] Narrative: Patient is here complaining of chest pain for about 2 days worse on better sitting up we will obtain electrocardiogram and chest x-ray I sensitive troponin 10:58 the patient refused the 2nd high sensitive troponin, at this point we will discharge home I do not think her pain is cardiac he has been going on for few days in the 1st I sensitive troponin is negative also change with position. Also the clinical picture is not consistent with dissection or pulmonary emboli sat is 98% she is not tachycardic the pain is positional worse lying down better sitting up. She does have a primary care physician she will follow-up with the PCP Differential Diagnosis Differential Diagnoses: The differential diagnosis associated with the presentation includes GERD/acute coronary syndrome/pericarditis/chest wall pain Admission/Observation Consideration of admission/observation: Escalation of care including admission/observation considered Lab Data [facility] Lab Attestation statement: I reviewed the patient's lab results. 05/22/25 07:48 05/22/25 08:21 Labs: Lab Results 05/22/25 05/22/25 05/22/25 Range/Units 07:48 08:21 08:30 WBC 10.8 (4.8-10.8) X10*3/uL RBC 4.69 (4.20-5.50) X10*6/uL Hgb 13.9 (12.0-16.0) g/dl Hct 40.9 (37.0-47.0) % MCV 87.2 (80.0-98.0) fL MCH 29.6 (27.0-33.0) pg MCHC 34.0 (31.0-35.0) g/dl RDW 13.3 (11.0-16.0) % Plt Count 393 (160-400) X10*3/uL MPV 9.5 (9.4-12.3) fL Immature Gran % (Auto) 0.8 H (0.0-0.4) % Neut % (Auto) 69.7 (45-73) % Lymph % (Auto) 24.1 (20-40) % [place] % (Auto) 3.6 (2-11) % Eos % (Auto) 1.1 (0-4) % Baso % (Auto) 0.7 (0-2) % Lymph # (Auto) 2.6 (1.2-4.9) X10*3/uL [place] # (Auto) 0.4 (0.1-1.2) X10*3/uL Eos # (Auto) 0.1 (0.0-0.4) X10*3/uL Baso # (Auto) 0.1 (0.0-0.2) X10*3/uL Abs Immat Gran (auto) 0.09 H (0.00-0.03) X10*3/uL Absolute Neuts (auto) 7.5 (2.0-8.3) x10*3/uL Absolute Nucleated RBC 0.000 (0.0-0.012) X10*3/uL Nucleated RBC % (auto) 0.0 (0.0-0.2) /100WBC Sodium 139 (135-145) mmol/L Potassium 4.1 (3.3-5.1) mmol/L Chloride 109 H (96-108) mmol/L Carbon Dioxide 22 (22-29) mmol/L Anion Gap 12 (12-20) BUN 7 L (9-16) mg/dL Creatinine 0.67 (0.5-1.4) mg/dL Estim Creat Clear Calc 128.4 Estimated GFR > 60 Random Glucose 138 H (60-115) mg/dL Calcium 9.0 (8.4-10.2) mg/dL Troponin I High Sens < 2.7 (<3.5-17.0) ng/L Urine Color Yellow Urine Appearance Clear Urine pH 6.0 (5.0-9.0) Ur Specific [place] 1.020 (1.005-1.025) Urine Protein Negative (Neg-Trace) mg/dL Urine Glucose (UA) Negative (Negative) mg/dL Urine Ketones Negative (Negative) mg/dL Urine Blood Trace H (Negative) Urine Nitrite Negative (Negative) Ur Leukocyte Esterase Negative (Negative) Urine RBC 6-10 H (0-2) /HPF Urine WBC 0-5 (0-5) /HPF Ur Squamous Epith Cells 0-2 (0-2) /HPF Urine Bacteria None Seen (None Seen) Hyaline Casts 0-2 (0-2) /LPF Urine Test NEGATIVE (NEGATIVE) Independent Interpretation I performed an independent interpretation of an: EKG (EKG was reviewed interpreted by me as a normal sinus rhythm rate [address]-T changes) and Plain X- Ray Radiology Impression Discussion of test interpretation with radiology: I have reviewed the radiologist's reading. Chronic Conditions Patient?s care impacted by: Hypertension and Other Discharge Plan Discharge Clinical Impression: Chest pain Qualifiers: Chest pain type: unspecified Qualified Code(s): R07.9 - Chest pain, unspecified Patient Disposition: Home, Self-Care Instructions: Chest Pain (DC) Additional Instructions: Follow-up with your primary care physician, you are welcome to return any time if you feeling worse any concern Prescriptions: No Action magnesium oxide 400 mg (241.3 mg magnesium) tablet 400 mg PO BEDTIME 30 Days Qty: 30 6RF Rx Instructions: may hold for loose stools sumatriptan succinate 100 mg tablet 50 - 100 mg PO .COMPLEX PRN (Reason: migraine headache) 30 Days Qty: 12 6RF Rx Instructions: 50 - 100 mg orally at onset of headache, may repeat in 2 hrs PRN; max 2 tabs per day or 4 tabs/week (may take with naproxen) oxybutynin chloride 10 mg tablet extended release 24hr 10 mg PO DAILY 30 Days Qty: 30 3RF amitriptyline 10 mg tablet 10 mg PO DAILY 30 Days Qty: 30 3RF Rx Instructions: at 8pm spironolactone 50 mg tablet 50 mg PO DAILY 90 Days Qty: 90 1RF metformin 500 mg tablet 500 mg PO DAILY 90 Days Qty: 90 1RF Referrals: Charlene Ashford MD [Primary Care Provider, Internal Medicine] - 05/23/25 Interventions: ED Discharge Assessment Last Done: 05/22/25 11:17 Print Language: Welsh
[2025-05-22 08:45] LABS: Appearance Urine Clear; Glucose Urine UA Negative (Negative); PH 6.0 (5.0-9.0); Specific Gravity - Urine 1.020 (1.005-1.025); UMIC TRIGGER UACC YES
[2025-05-22 08:47] LABS: UPreg QC Valid YES
[2025-05-22 08:49] LABS: Troponin-I High Sensitivity < 2.7 ng/L (<3.5-17.0)
[2025-05-22 08:54] VITALS: BP 126/63; PULSE 63; RESP 21; O2SAT 98
[2025-05-22] MEDS: Lidocaine HCl Viscous 2 % 15 ML SOLUTION 5 ML MUCOUS MEM (09:59)
[2025-05-22] MEDS: Magnesium Hydrox/Alum Hydrox 30 ML ORAL.SUSP PO (09:59)
[2025-05-22 10:03] VITALS: BP 137/70; PULSE 71; RESP 17; O2SAT 98
--- NOTE | 2025-05-22 10:04 | PC.NURSE ---
Pt taking GI cocktail. Reported that she thinks it is helping, but the volume and taste are making her gag.
--- NOTE | 2025-05-22 11:01 | MHC.EDTECH ---
Went to do patients trop and she said she is leaving and she signed a AMA form. Nurse aware
--- NOTE | 2025-05-22 11:13 | PC.NURSE ---
Pt reported wanting to leave AMA. Provider visited with her. Pt refused last trops. Took Tylenol, verbalized understanding to come back with worsening symptoms. Ambulated independently to entrance.
[2025-05-22 11:17] VITALS: BP 137/70; PULSE 71; RESP 17; TEMP 36.5; O2SAT 98
== END 2025-05-22 11:22 | disposition home or self-care (01) ==
PROVIDERS: Emergency Provider Emergency Medicine; PCP Internal Medicine
DX: R07.9 Chest pain, unspecified (principal); R06.02 Shortness of breath; R20.0 Anesthesia of skin
CPT/HCPCS: 36415; 71046; 80048; 81001; 81025; 84484; 85025; 93005; 99283; 99285

== ENCOUNTER → 2025-05-22 07:17 | Outpatient (BNV) | payer OTHER, SELFPAY | PROVIDERS: Emergency Provider Emergency Medicine; PCP Internal Medicine; Visit Provider Internal Medicine Cardiovascular Disease | DX: R07.9 Chest pain, unspecified (principal) | CPT/HCPCS: 93010 ==

== ENCOUNTER → 2025-05-22 08:36 | Outpatient (BNV) | payer OTHER, SELFPAY | PROVIDERS: Emergency Provider Emergency Medicine; PCP Internal Medicine; Visit Provider Radiology Diagnostic Radiology | DX: R07.9 Chest pain, unspecified (principal) | CPT/HCPCS: 71046 ==

== ENCOUNTER 2025-06-21 | Outpatient (REF) | payer OTHER, SELFPAY | END 2025-06-21 00:01 | disposition home or self-care (01) | LOC: CF | PROVIDERS: PCP Internal Medicine; Visit Provider Internal Medicine | DX: Z00.00 Encounter for general adult medical examination without abnormal findings (principal); R59.1 Generalized enlarged lymph nodes; J45.30 Mild persistent asthma, uncomplicated; G43.709 Chronic migraine without aura, not intractable, without status migrainosus; R11.0 Nausea; E66.01 Morbid (severe) obesity due to excess calories; F33.0 Major depressive disorder, recurrent, mild; R73.02 Impaired glucose tolerance (oral); Z68.37 Body mass index [BMI] 37.0-37.9, adult; Z79.899 Other long term (current) drug therapy | CPT/HCPCS: 83036; 96127; 99212; 99395 ==

== ENCOUNTER 2025-06-21 07:46 | Outpatient (AMB) | payer OTHER, SELFPAY ==
[2025-06-21 07:49] VITALS: BP 134/72; PULSE 63; O2SAT 99; BMI 37.3
--- NOTE | 2025-06-21 07:49 | A.OFFPC_ITS ---
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 Accompanied by: Self / Same As Patient Allergies ibuprofen Adverse Reaction (Mild, Verified 06/21/25 08:09) uti metformin Adverse Reaction (Intermediate, Uncoded 06/21/25 08:09) abdominal pain, diarrhea Medication List - Last Reconciled 06/21/25 by Charlene Soliman MD amitriptyline 10 mg PO DAILY 30 days magnesium oxide 400 mg PO BEDTIME 30 days metformin 500 mg PO DAILY 90 days oxybutynin chloride ER 10 mg PO DAILY 30 days spironolactone 50 mg PO DAILY 90 days sumatriptan succinate 50 - 100 mg orally at onset of headache, may repeat in 2 hrs PRN; max 2 tabs per day or 4 tabs/week (may take with naproxen) 30 days Tobacco use date assessed: 05/02/25 Dental Screening Dental Screen Date: 05/02/25 HPI HPI Comments History of Present Illness Details The patient is a 35-year-old female presenting for a routine wellness visit and management of chronic conditions. The patient has a history of Polycystic Ovary Syndrome (PCOS) and prediabetes, which are being monitored. She reports that her A1c levels are currently good, and the diagnosis of diabetes is being held off. The patient experiences migraines for which she uses sumatriptan as needed. She also takes amitriptyline occasionally for headaches, but not consistently due to side effects such as dry mouth and sleepiness. The patient has mild depression, for which she occasionally uses amitriptyline. She reports a slight improvement in mood with this medication. The patient has asthma, experiencing shortness of breath but no wheezing. She uses her daughter's inhaler occasionally but is concerned about depleting it. The patient has a dental infection due to broken teeth, which she believes contributes to her headaches. In terms of preventative care, the patient is up to date with her Tdap vaccination and had a Pap smear with negative HPV results in 2021. [facility] Medical History (Updated 06/21/25 @ 08:27 by Charlene Soliman MD) Mild recurrent major depression Severe major depression without psychotic features Goiter GERD (gastroesophageal reflux disease) Nephrolithiasis Vitamin D deficiency Elevated dehydroepiandrosterone sulfate level Chest pain Shoulder pain History of calculus of gallbladder Surgical History Hx of tubal ligation Hx of cholecystectomy Family History Mother Epilepsia Diabetes Father High blood pressure Maternal Grandmother Ovarian cancer Son History of IBS Daughter Asthma Anemia Social History Household Members: Children Housing: Apartment Alcohol intake: never Patient Tobacco Use Status: Current everyday Tobacco user Tobacco use type: Cigarette Cigarettes Per Day: 8 e-Cigarette/Vaping Use: Never Used Second Hand Smoke Exposure: No service: No Current occupational status: employed 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 1. Little interest or pleasure in doing things: several days 2. Feeling down, depressed, or hopeless: several days 3. Trouble falling or staying asleep, or sleeping too much: several days 4. Feeling tired or having little energy: several days 5. Poor appetite or overeating: several days 6. Feeling bad about yourself - or that you are a failure or have let yourself or your family down: several days 7. Trouble concentrating on things, such as reading the newspaper or watching television: not at all 8. Moving or speaking so slowly that other people could have noticed. Or the opposite - being so fidgety or restless that you have been moving around a lot more than usual: not at all 9. Thoughts that you would be better off or of hurting yourself in some way: not at all Total score: 6 Depression Screening Interpretation: Positive Depression Screening Follow-up: Existing condition, In treatment and Follow-up Visit Requested Depression Screening Done: Yes 07334 - PHQ-9 Billing: Yes Source: Developed by Drs. Javier Tam, Shannan Machado, Roc Crystal and colleagues, with an educational darvin from [employer]. Thrive Questionnaire Date Thrive assessed: 05/02/25 I am a: Patient What is your living situation today?: I have a steady place to live Within the past 12 months, did the food you bought not last and you didn't have the money to get more?: Never true Within the past 12 months, did you worry whether your food would run out before you got money to buy more?: Never true Do you have trouble paying for medicines?: No Do you have trouble getting transportation to medical appointments?: Yes Do you have trouble paying your heating and electricity bill?: No Do you have trouble taking care of your child, family member or friend?: No Do you have trouble with day-to-day activities such as bathing, preparing meals, shopping, managing finances, etc.?: I choose not to answer this question Are you currently unemployed and looking for a job?: Yes Are you interested in more education?: No Please select the resources that you would like help with: None Currently or been in a relationship where the following occur: I choose not to answer THRIVE Score: 1 AUDIT C Alcohol Use Questionnaire (AUDIT-C) 1. How often do you have a drink containing alcohol?: Never 3. How often do you have six or more drinks on one occasion?: Never Total Score: 0 Score Reviewed/Action Taken: No DESHAWN-7 AMB Questionnaire DESHAWN-7 Date DESHAWN - 7 assessed: 06/21/25 Feeling nervous, anxious, or on edge: 1 = Several days Not being able to stop or control worryin = Nearly every day Worrying too much about different things: 3 = Nearly every day Trouble relaxin = Nearly every day Being so restless that it is hard to sit still: 3 = Nearly every day Becoming easily annoyed or irritable: 3 = Nearly every day Feeling afraid as if something awful might happen: 3 = Nearly every day Total DESHAWN-7 score (0-4 normal; 5-9 mild; 10-14 moderate; 15-21 severe): 19 Source: Developed by Drs. Javier Tam, Shannan Machado, Roc Crystal and colleagues, with an educational darvin from [employer]. DESHAWN-7 Assessment Billing DESHAWN-7 Assessment Tool: DESHAWN-7 Assessment 51500 Review of Systems Const All systems reviewed & are unremarkable except as noted in HPI and below Card Denies chest pain at rest, Denies chest pain with activity, Denies edema, Denies irregular heart rhythm, Denies claudication, Denies dyspnea, Denies dyspnea on exertion, Denies orthopnea, Denies paroxysmal nocturnal dyspnea and Denies slow heart rate Resp Denies cough, Denies dyspnea and Denies dyspnea on exertion GI Denies abdominal pain, Denies change in bowel habits, Denies excessive flatus, Denies nausea and Denies vomiting Denies urinary incontinence, Denies urinary hesitancy and Denies urinary urgency Musc Denies abnormal gait, Denies atrophy, Denies deformity and Denies limited range of motion Skin/Breast Denies bleeding lesions, Denies changing lesions and Denies rash Neuro Denies abnormal gait and Denies lack of coordination Physical exam (Primary Care) Vital Signs: Last Vital Signs Pulse 63 06/21/25 07:49 BP 134/72 06/21/25 07:49 Pulse Ox 99 06/21/25 07:49 Oxygen Delivery Method Room Air 06/21/25 07:49 BMI result Body Mass Index 37.3 BMI Assessment/Plan discussion: High BMI High, discussed plan: lifestyle, weight reduction, dietary and physical activity Tobacco/Smoking Status: Tobacco use Status Tobacco use date assessed 05/02/25 06/21/25 07:50 Patient Tobacco Use Status Current everyday Tobacco 06/21/25 07:50 Tobacco use type Cigarette 06/21/25 07:50 e-Cigarette/Vaping Use Never Used 06/21/25 07:50 Are you ready to quit: No Tobacco cessation counseling provided: Yes Items discussed: QuitWorks Relapse Prevention: discussed the importance of a supportive environment, discussed negative mood or depression after quitting, weight gain after smoking is common and discussed dietary, exercise and/or lifestyle changes Number of minutes spent counselin CPT code: 75898 - 4-10 Minutes PHQ-9: PHQ-9 Score PHQ-9: Total score 6 06/21/25 07:50 Depression Screening Interpretation: Positive Depression Screening Follow-up: Existing condition, In treatment and Follow-up Visit Requested Thrive Assessment: Date of Thrive Assessment Date Thrive assessed 05/02/25 06/21/25 07:50 Currently or been in a relationship where the following occur: I choose not to answer HENNC Head: Yes normal to inspection, Yes normocephalic and Yes atraumatic Ears: external ears normal Eyes General: appearance normal, both eyes and all related structures Eyelids: Yes eyelids normal Conjunctivae: conjunctivae normal Neck Neck: Yes normal visual inspection and Yes supple Resp Effort & Inspection: normal respiratory effort Auscultation: clear to auscultation bilaterally Cardio Jugular venous distension: no JVD Rate: regular rate Rhythm: regular rhythm Heart sounds: S1 normal heart sound present and S2 normal heart sound present GI Inspection: Yes normal to inspection Palpation (GI): Soft to palpation and nontender Auscultation: normal bowel sounds Skin General skin exam: no rashes or lesions noted Neuro General: no focal motor deficits Extrem General: Yes full ROM Psych Appearance: grossly normal Results AMB Hemoglobin A1c AMB Hemoglobin A1c 5.6 % Last Edit by Laurita Vigil CMA on 06/21/25 08 :10 Coding Level of Care Code Est Pt Level 4 (95136) Est Pt Prev Care 18-39y(59362) Diagnoses Physical exam Z00.00 Mild persistent asthma J45.30 Chronic migraine without aura without status migrainosus, not intractable G43.709 Status migrainosus presence: without status migrainosus Intractability: not intractable Nausea R11.0 Morbid obesity with BMI of 40.0-44.9, adult E66.01; Z68.41 Mild recurrent major depression F33.0 Impaired glucose tolerance R73.02 Additional Codes PHQ-9 - 37062 - PHQ-9 Billing: Yes ([id number]) DESHAWN-7 Assessment Billing - DESHAWN-7 Assessment Tool: DESHAWN-7 Assessment 97201 ([id number]) Vital Signs *Quality* - CPT code: 83182 - 4-10 Minutes ([id number]) Time Spent (min) 35 Assessment & Plan Assessment & Plan (1) Physical exam: Code(s): Z00.00 - Encounter for general adult medical examination without abnormal findings Category: Medical (2) Mild persistent asthma: Code(s): J45.30 - Mild persistent asthma, uncomplicated Category: Medical (3) Chronic migraine without aura: Code(s): G43.709 - Chronic migraine without aura, not intractable, without status migrainosus Category: Medical Qualifiers: Status migrainosus presence: without status migrainosus Intractability: not intractable Qualified Code(s): G43.709 - Chronic migraine without aura, not intractable, without status migrainosus (4) Nausea: Comment: Intermittent appetite good HCG, low yield Code(s): R11.0 - Nausea Category: Medical (5) Morbid obesity with BMI of 40.0-44.9, adult: Code(s): E66.01 - Morbid (severe) obesity due to excess calories; Z68.41 - Body mass index [BMI] 40.0-44.9, adult Category: Medical (6) Mild recurrent major depression: Code(s): F33.0 - Major depressive disorder, recurrent, mild Category: Medical (7) Impaired glucose tolerance: Code(s): R73.02 - Impaired glucose tolerance (oral) Category: Medical Plan Plan Patient was informed and verbally consented to the use of an ambient scribe for clinic note documentation during this visit. 1. Physical exam Repeat in a year. 2.Polycystic ovarian syndrome E28.2 The patient is being monitored for PCOS, with current management focusing on lifestyle modifications and weight management strategies. 3. Prediabetes R73.03 The patient's prediabetes is being monitored with regular A1c checks, and lifestyle modifications are encouraged to prevent progression to diabetes. 4. Unspecified asthma, uncomplicated J45.909 The patient reports dyspnea and uses her daughter's inhaler occasionally; a prescription for her own inhaler may be considered to manage symptoms effectively. 5. Migraine, unspecified, not intractable, without status migrainosus G43.909 The patient uses sumatriptan as needed for migraines and occasionally takes amitriptyline for headache prevention, though side effects limit its use. 6. Depression, unspecified F32.A The patient occasionally uses amitriptyline for mild depression, which provides some mood improvement. Orders: Orders AMB Hemoglobin A1c Today Z13.9 - Encounter for screening, unspecified Medications: New topiramate 25 mg PO BEDTIME 90 tabs 0RF 90 days ondansetron 8 mg PO Q12H PRN 60 tabs 0RF nausea and vomiting 30 days albuterol sulfate 90 mcg/actuation (Ventolin HFA) 2 puffs inhalation Q6H PRN 6.7 grams 1RF shortness of breath or wheezing 30 days J45.30 - Mild persistent asthma, uncomplicated
== END 2025-06-21 08:24 | disposition home or self-care (01) ==
LOC: HO.HMCH 07:47
PROVIDERS: PCP Internal Medicine; Visit Provider Internal Medicine
DX: Z00.00 Encounter for general adult medical examination without abnormal findings (principal); R11.0 Nausea; G43.709 Chronic migraine without aura, not intractable, without status migrainosus; E66.01 Morbid (severe) obesity due to excess calories; Z68.41 Body mass index [BMI] 40.0-44.9, adult; J45.30 Mild persistent asthma, uncomplicated; F33.0 Major depressive disorder, recurrent, mild; R73.02 Impaired glucose tolerance (oral); Z13.9 Encounter for screening, unspecified

== ENCOUNTER 2025-06-28 09:01 | Outpatient (AMB) | payer OTHER, SELFPAY ==
--- NOTE | 2025-06-28 09:13 | MHC.OFFVIS ---
Vital Signs 06/28/25 09:14 Height 5 ft Weight 194 lb 7.163 oz BMI 38.0 BP 116/62 Blood Pressure Location Rt brachial Position Sitting Pulse 77 Pulse Source Pulse Oximeter Pulse Oximetry (%) 97 Oxygen Delivery Method Room Air Intake Visit Reasons: Hirsutism Intake Note: New patient present today for Hirsutism office visit. 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: No Accompanied by: Self / Same As Patient Allergies ibuprofen Adverse Reaction (Mild, Verified 06/28/25 09:17) uti metformin Adverse Reaction (Intermediate, Uncoded 06/28/25 09:17) abdominal pain, diarrhea Medication List - Last Reconciled 06/28/25 by Brenda Breaux MD albuterol sulfate 90 mcg/actuation (Ventolin HFA) 2 puffs inhalation Q6H PRN 30 days amitriptyline 10 mg PO DAILY 30 days magnesium oxide 400 mg PO BEDTIME 30 days metformin 500 mg PO DAILY 90 days ondansetron 8 mg PO Q12H PRN 30 days oxybutynin chloride ER 10 mg PO DAILY 30 days spironolactone 50 mg PO DAILY 90 days sumatriptan succinate 50 - 100 mg orally at onset of headache, may repeat in 2 hrs PRN; max 2 tabs per day or 4 tabs/week (may take with naproxen) 30 days topiramate 25 mg PO BEDTIME 90 days HPI Comments Details: 35-year-old female here today for initial evaluation of elevated DHEA-S levels and PCOS. She was last seen in Endocrine Clinic in 2020 with concerns for hearing loss, with a elevated DHEA-S levels in the 300s. She was reporting hair loss and facial hair growth. This prompted her prior PCP to order a DHEA-s level which was elevated into the 300's. Sh in was subsequently referred to Endocrinology. She underwent a full biochemical evaluation for hyperandrogenism, in 2020, which revealed an elevated DHEA-s level to 347, but was otherwise WNL. She was asked to have a CT adrenal protocol as well as an US of her ovaries to assess for any androgen secreting mass, and also to repeat her labs. She failed to complete the CT scan of the adrenals and her labs, but her US of the ovaries did reveal a solitary ovarian cyst. 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 Some facial acne Menarche was age 7. Menses have been regular but heavy and painful LMP : 06/19/25, last 3-5 days Overlock Operator history : . She has 2 children who were conceived spontaneously. She had no issues with fertility. She was using an IUD and did not have menses for a few years while using this. She has since had a tubal ligation, and since then menses are heavy and painful, but still coming at regular monthly intervals. No plans for , currently sexually active but has had tubal ligation OCP use: Denies Metformin use: 500 mg daily, restarted in April 2025 in 2023 she was on it as well and had GI intolerance Was seen in weight management clinic by Dr. Christy in oct 2024, patient is not interested in [facility] - was on it for 4-5 months but then her insurance stopped covering it She thinks she lost 15 lbs on it Obesity current BMI 38 kg/m2 Weight gain: 194 lbs currently, has gained 20 lbs in the last 5 years was 175 lbs in 2020 Growing up she was skinny After 1st preganancy 125 lbs which was 18 years ago, then after tubal ligation and 2 nd 13 years ago she started putting on weight gradually Exercise : walks 30 mins eveyrday with her dog Diet: currently not following any restirctions Has prediabetes , HTN, Normal sleep study in the past per patient no easy bruising no proximal muscle weakness no fractures no skin thinning no facial plethora no thick purple abdominal striae no change in ring size or shoe size Does have some spacing in teeth Physical exam General: sitting comfortably in no acute distress HEENT: normocephalic/atraumatic, Neck: supple, skin darkeneing noted Cardiac: normal heart sounds Pulm: normal breath sounds B/L, no added breath sounds Abd: not distended, no tenderness, no purple striae Extremities: no edema, no signs of myxedema Laboratory Tests 11/25/20 09:15 TSH 1.62 Free T4 0.88 Laboratory Tests 04/10/20 10/10/20 10/12/21 11:01 09:27 12:11 TSH 1.39 Prolactin 15.3 DHEA Sulfate 361 H 347 H Total Testosterone 30 Fr Testosterone Dialys 4.4 Sex Hormone Bind Glob 30 Androstenedione 92 Beta HCG, Quant < 2 Cortisol 10.7 ACTH 8 17-Hydroxyprogesterone 63 Laboratory Tests 10/10/20 05/22/25 06/21/25 09:27 08:21 08:09 Sodium 139 Potassium 4.1 Creatinine 0.67 Estimated GFR > 60 Random Glucose 138 H Hemoglobin A1c % 5.5 Hgb A1c (Clinic) 5.6 Cholesterol 163 LDL Cholesterol Direct 116 H LDL Cholesterol, Calc 91 HDL Cholesterol 42 Ovarian US 02/25/2021: FINDINGS: The uterus is anteverted and anteflexed measuring 6.71 cm in length, 4.1 cm in AP and 5.8 cm in transverse dimension. The endometrial thickness is 0.80 cm. Small anechoic cyst seen in the cervix. Right ovary measures 3.46 x 2.22 x 2.26 cm and volume 9.09 mL. Previously, right ovary measured 2.9 x 2.2 x 1.8 cm. There is an anechoic paraovarian cyst measuring 1.1 x 1.0 x 1.1 cm. Left ovary measures 2.99 x 1.64 x 2.44 cm and volume 6.26 mL. Previously, left ovary measured 2.7 x 1.8 x 2.22 cm. 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 Goiter GERD (gastroesophageal reflux disease) Nephrolithiasis Vitamin D deficiency Elevated dehydroepiandrosterone sulfate level Chest pain Shoulder pain History of calculus of gallbladder Surgical History Hx of tubal ligation Hx of cholecystectomy Family History Mother Epilepsia Diabetes Father High blood pressure Maternal Grandmother Ovarian cancer Son History of IBS Daughter Asthma Anemia Social History Household Members: Children Housing: Apartment Alcohol intake: never Patient Tobacco Use Status: Current everyday Tobacco user Tobacco use type: Cigarette Cigarettes Per Day: 8 e-Cigarette/Vaping Use: Never Used Second Hand Smoke Exposure: No service: No Current occupational status: employed 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 In the past in 2020 she had extensive workup for hyperandrogenism which was normal, she only had an elevated DHEA-S level in the 300s. This is only mildly elevated, can be seen in patients with the insulin resistance/PCOS. It is not high enough such as greater than 700 for us to think about a tumor source. She was at that time advised to get a CT adrenal but did not do it, she did get an ovarian ultrasound which showed a cyst on her right ovary. She does complain of some menorrhagia and dysmenorrhea. At this time I have asked her to see her OBGYN again to see if they can help with those. She does have regular periods, so she does not really meet the whole triad of PCOS, as the ultrasound that she had back in 2020 did not point towards polycystic morphology, plus she has regular periods, her only aspect of PCOS is signs of hyperandrogenism and insulin resistance. However this is a diagnosis of exclusion which is usually on a spectrum and she could still have some degree of underlying insulin resistance/PCOS. Regardless she is already on spironolactone 50 mg daily. Labs repeated after starting spironolactone in April 2025 showed normal kidney function and potassium level. She can continue on this dose for now. This is also controlling her blood pressure, she does have mild hypertension. At this point her blood pressure is on the lower side so I would not suggest going up on the dose of spironolactone. Advise her to continue the same. I reviewed with the patient the implications of polycystic ovarian syndrome in terms of 1) reproductive health (increased risk of infertity, miscarriage), 2) metabolic issues (type 2 diabetes, hypertension, dyslipidemia, cardiovascular disease) and 3) hyperandrogenism (acne, hirsuitism, male pattern hair loss). We reviewed that weight loss in overweight woman can help improve these morbidities, but often woman with PCOS do need further assistance with fertility using metformin plus clomiphene or letrazole. She is not interested in fertility, she has had a tubal ligation. Plan: -continue spironolactone 50 mg daily -follow up with Dermatology for hair loss/acne -referral sent to OBGYN for dysmenorrhea/menorrhagia (2) Obesity: Code(s): E66.9 - Obesity, unspecified Category: Medical Qualifiers: Obesity type: due to excess calories Obesity classification: adult class 2 (BMI 35 - 39.9) Serious obesity comorbidity presence: with serious comorbidity Body mass index: BMI 38.0-38.9 Qualified Code(s): E66.812 - Obesity, class 2; Z68.38 - Body mass index [BMI] 38.0-38.9, adult Plan: Current BMI 38 kilogram/meters squared, current weight 194 lb she has gained about 20 lb over the past 5 years, lowest weight in the chart was 175 lb in 2020. Patient thinks she gained most of her weight after her 2nd about 13 years ago. Growing up she describes herself as 8. She is currently on metformin with a history of prediabetes. Most recent A1c improved to 5.6 from June 2025. She also has a history of hypertension. Currently well-controlled on spironolactone 50 mg daily. She does not have any acromegalic She has met with the weight management clinic, and not interested in bariatric surgery. In 2023 she tried GLP 1 agonist Wegovy and lost 15 lb however insurance then denied Wegovy and also denied Zepbound. She will actually be an excellent candidate for weight loss medications, however unfortunately insurance has denied them. I did discuss with her that if she is able to pay [id number] for them which is usually about 4-500 dollars per month she can let us know. I reviewed with patient the importance of weight loss as it relates to decreasing the risk of diabetes, cardiovascular disease, obstructive sleep apnea,, arthritis. We reviewed the importance of decreasing total calorie consumption, minimizing fats and carbohydrates. We reviewed the 500 calorie deficit method She was advised to start exercising 30-45 mins a day of aerobic exercise +2-3 3 days of resistance training Plan: -lifestyle modification as advised above Plan I spent 60 minutes in reviewing the record, seeing the patient and documenting in the medical record. Orders: Referrals [facility] Referral N92.0 - Excessive and frequent menstruation with regular cycle, N94.6 - Dysmenorrhea, unspecified Patient Instructions: Weight loss counselling ? Limit added sugars to less than 25 grams daily. There are 4.2 grams of sugar per teaspoon of sugar. A teaspoon of honey has 6 grams of sugar! Bread also can have more sugar than you think-check labels ? No soda or juices. Drink water, unsweetened iced tea or seltzer ? Limit eating out/take out or prepared meals to twice weekly at most ? Avoid red meat, hot dogs, green and deli meat. Substitute plant protein for animal protein as much as you can. Beans, nuts, tofu, soy milk ? Limit cheese to 1 ounce a few times weekly ? Eat high fiber foods like beans, apples and green veggies, salsa is a great snack with whole grain cracker like Wasa ? Look for the whole grain stamp when choosing bread etc. Aim for 48 grams of whole grains daily. Whole wheat does not equal whole grains! ? Don't keep tempting treats in the house. Go out once in a while for a treat. ? Don't eat anything deep fried or cream based-no sour cream continue metformin 500 mg daily Continue spironolactone 50 mg daily Continue to see Dermatology for hair loss and acne Referral sent to OBGYN for heavy periods and painful periods Start incorporating 2-3 days of resistance training/strength training in addition to your aerobic exercise Plan to maintain 500 calorie deficit using rosa such as my fitness pal or lose it in order to plan to do 1 lb per week if you maintain a 500 calorie deficit every day Coding Level of Care Code New Pt Level 5 (35750) Diagnoses Hirsutism L68.0 Class 2 severe obesity due to excess calories with serious comorbidity and body mass index (BMI) of 38.0 to 38.9 in adult E66.812; Z68.38 Obesity type: due to excess calories Obesity classification: adult class 2 (BMI 35 - 39.9) Serious obesity comorbidity presence: with serious comorbidity Body mass index: BMI 38.0-38.9 Time Spent (min) 60
[2025-06-28 09:14] VITALS: BP 116/62; PULSE 77; O2SAT 97; BMI 38.0
== END 2025-06-28 10:13 | disposition home or self-care (01) ==
LOC: HO.ENCR 09:02
PROVIDERS: PCP Internal Medicine; Visit Provider Student in an Organized Health Care Education/Training Program
DX: L68.0 Hirsutism (principal); E66.9 Obesity, unspecified; Z68.38 Body mass index [BMI] 38.0-38.9, adult
CPT/HCPCS: 99205

== ENCOUNTER → 2025-06-28 09:01 | Outpatient (BNVA) | payer OTHER, SELFPAY | PROVIDERS: PCP Internal Medicine; Visit Provider Student in an Organized Health Care Education/Training Program | DX: Z71.3 Dietary counseling and surveillance (principal); L68.0 Hirsutism; E66.9 Obesity, unspecified; E66.812 Obesity, class 2; Z68.38 Body mass index [BMI] 38.0-38.9, adult; N92.0 Excessive and frequent menstruation with regular cycle; N94.6 Dysmenorrhea, unspecified | CPT/HCPCS: 99202 ==